=== PATIENT | female | born 1940 | race Caucasian/White ===

== ENCOUNTER 2022-08-07 17:23 | Inpatient (IN) | payer MEDICARE, BC ==
[2022-08-07] MEDS ORDERED: NALOXONE 0.4 MG/ML 1 ML VIAL IV PRN (18:25)
--- NOTE | 2022-08-07 18:34 | ED ---
General Adult HPI - General Chief complaint: Weakness Stated complaint: abn labs Time Seen by Provider: 08/07/22 17:36 Source: patient, family, EMS, RN notes reviewed, old records reviewed Mode of arrival: EMS Limitations: physical limitation - History of Present Illness Initial comments: 81-year-old female presenting for evaluation of weakness. Patient was transferred from outside hospital, found to have an anemia of 7.3 and pneumonia on imaging. She was given 1 unit of packed RBCs and antibiotics. She had initially complained of profound generalized weakness. This been an ongoing issue and was related to anemia approximately one month ago where she received workup at outside hospital. Including EGD and colonoscopy. This was reported as normal. This was done at [facility]. Patient was found to have a white blood cell count of 13.4. Hemoglobin 7.3. Negative troponin. Patient had a mildly elevated creatinine 1.3, BUN of 55. Potassium 3.1 which was replaced. - Related Data Allergies Allergy/AdvReac Type Severity Reaction Status Date / Time mirabegron [From Myrbetriq] Allergy Unknown Verified 08/07/22 17:58 pregabalin [From Lyrica] Allergy Confusion Verified 08/07/22 17:58 promethazine [From Phenergan] Allergy Unknown Verified 08/07/22 17:58 solifenacin [From Vesicare] Allergy Anaphylaxis Verified 08/07/22 17:58 Review of Systems ROS Statement: Those systems with pertinent positive or pertinent negative responses have been documented in the HPI. ROS Other: All systems not noted in ROS Statement are negative. Past Medical History Past Medical History: Atrial Fibrillation, Coronary Artery Disease (CAD), COPD, CVA/TIA, Diabetes Mellitus, Deep Vein Thrombosis (DVT), Hypertension, Osteoarthritis (OA), Pneumonia, Sleep Apnea/CPAP/BIPAP Additional Past Medical History / Comment(s): Anemia, low iron. 3 liters nasal cannula at home. [place]. Past Surgical History: Appendectomy, Cholecystectomy, Heart Catheterization Smoking Status: Former smoker Past Drug Use History: None Reported General Exam Limitations: physical limitation General appearance: alert, in no apparent distress Head exam: Present: atraumatic, normocephalic Eye exam: Present: normal appearance, PERRL ENT exam: Present: normal exam Neck exam: Present: normal inspection. Absent: tenderness, meningismus Respiratory exam: Present: normal lung sounds bilaterally. Absent: respiratory distress Cardiovascular Exam: Present: regular rate, normal rhythm GI/Abdominal exam: Present: soft. Absent: distended, tenderness, guarding Extremities exam: Present: normal inspection, normal capillary refill. Absent: pedal edema Neurological exam: Present: alert, oriented X3, CN II-XII intact. Absent: motor sensory deficit Psychiatric exam: Present: normal affect, normal mood Skin exam: Present: warm, dry, intact, pallor Course Vital Signs 08/07/22 17:35 Temperature 98.4 F Pulse Rate 83 Respiratory 18 Rate Blood Pressure 116/78 O2 Sat by Pulse 98 Oximetry Medical Decision Making - Medical Decision Making Was pt. sent in by a medical professional or institution (, PA, HORSE FARM MANAGER, urgent care, hospital, or [facility]...) When possible be specific @ Sent from [facility] Did you speak to anyone other than the patient for history (EMS, parent, family, police, friend...)? What history was obtained from this source @ -No Did you review nursing and triage notes (agree or disagree)? Why? @ -I reviewed and agree with nursing and triage notes Were old charts reviewed (outside hosp., previous admission, EMS record, old EKG, old radiological studies, urgent care reports/EKG's, [facility] records)? Report findings @ -No old charts were reviewed Differential Diagnosis (chest pain, altered mental status, abdominal pain women, abdominal pain men, vaginal bleeding, weakness, fever, dyspnea, syncope, headache, dizziness, GI bleed, back pain, seizure, CVA, palpatations, mental health, musculoskeletal)? @ Differential Weakness: Hypoglycemia, shock, sepsis, hyponatremia, anemia, infection, MO, ETOH, adverse medicine reaction, overdose, stroke, this is not meant to be an all-inclusive list. EKG interpreted by me (3pts min.). @ -As above X-rays interpreted by me (1pt min.). @ -None done CT interpreted by me (1pt min.). @ -None done U/S interpreted by me (1pt. min.). @ -None done What testing was considered but not performed or refused? (CT, X-rays, U/S, labs)? Why? @ -None What meds were considered but not given or refused? Why? @ -None Did you discuss the management of the patient with other professionals (professionals i.e. , PA, HORSE FARM MANAGER, lab, RT, psych nurse, high school social studies teacher, industrial ecologist, teacher, conservation enforcement officer, nurse outreach case manager)? Give summary @ -EMH Was smoking cessation discussed for >3mins.? @ -No Was critical care preformed (if so, how long)? @ -No Were there social determinants of health that impacted care today? How? (Homelessness, low income, unemployed, alcoholism, drug addiction, transportation, low edu. Level, literacy, decrease access to med. care, fpc, rehab)? @ -No Was there de-escalation of care discussed even if they declined (Discuss DNR or withdrawal of care, Hospice)? DNR status @ -No What co-morbidities impacted this encounter? (DM, HTN, Smoking, COPD, CAD, Cancer, CVA, ARF, Chemo, Hep., AIDS, mental health diagnosis, sleep apnea, morbid obesity)? @ -[Anemia Was patient admitted / discharged? Hospital course, mention meds given and route, prescriptions, significant lab abnormalities, going to OR and other pertinent info. @ -81-year-old female transferred for evaluation of weakness, anemia, and pneumonia. Patient treated with IV antibiotics, Protonix, and 1 unit of packed RBCs. I will repeat laboratory testing in the morning. Patient was sent for evaluation by gastroenterology for this anemia. Gastroenterology has been placed on consult. She will be continued on proton pump inhibitor. Undiagnosed new problem with uncertain prognosis? @ -No Drug Therapy requiring intensive monitoring for toxicity (Heparin, Nitro, Insulin, Cardizem)? @ -No Were any procedures done? @ -No Diagnosis/symptom? @ -[Weakness and anemia, pneumonia Acute, or Chronic, or Acute on Chronic? @ -[Acute Uncomplicated (without systemic symptoms) or Complicated (systemic symptoms)? @ -[Complicated Side effects of treatment? @ -No Exacerbation, Progression, or Severe Exacerbation? @ -No Poses a threat to life or bodily function? How? (Chest pain, USA, MO, pneumonia, PE, COPD, DKA, ARF, appy, cholecystitis, CVA, Diverticulitis, Homicidal, Suicidal, threat to staff... and all critical care pts) @ -[Yes, anemia, hemorrhagic shock, pneumonia, septic shock Disposition Clinical Impression: Anemia, Pneumonia Disposition: ADMITTED IP TO THIS HOSP Condition: Stable Is patient prescribed a controlled substance at d/c from ED?: No Referrals: None,Stated [Primary Care Provider] - 1-2 days Time of Disposition: 18:34
[2022-08-07] MEDS ORDERED: HYDROcodone/APAP 5-325MG 1 EACH TAB PO PRN (21:45)
[2022-08-07] MEDS ORDERED: ALPRAZolam 0.25 MG TAB PO PRN (21:45)
[2022-08-07] MEDS ORDERED: DEXTROSE 50% SYRINGE 50 ML IVP PRN ×2 (21:47)
[2022-08-07] MEDS: FLUoxetine HCL 20 MG CAP PO SCH (22:28)
[2022-08-08 03:18] LABS: Glucose,Whole Blood 274 mg/dL (70-110)
[2022-08-08] MEDS: INSULIN ASPART (NovoLOG) 100 UNIT/ML VIAL SQ SCH ×6 (03:42→20:11)
[2022-08-08 05:37] LABS: Glucose,Whole Blood 252 mg/dL (70-110)
[2022-08-08] MEDS: SYMBICORT 80-4.5 MCG INHALER INHALATION SCH ×2 (06:03→21:16)
[2022-08-08 06:39] LABS: ALT 17 U/L (4-34); AST 28 U/L (14-36); African American GFR (CKD) 49 (>60 ml/min/1.73 sqM); Albumin 3.5 g/dL (3.5-5.0); Alkaline Phosphatase 64 U/L (38-126); Anion Gap 10 mmol/L; Blood Urea Nitrogen 60 mg/dL (7-17); Calcium 10.5 mg/dL (8.4-10.2); Carbon Dioxide 36 mmol/L (22-30); Chloride 87 mmol/L (98-107); Glucose 215 mg/dL (74-99); Magnesium 2.3 mg/dL (1.6-2.3); Non-African American GFR(CKD) 42 (>60 ml/min/1.73 sqM); Potassium 3.6 mmol/L (3.5-5.1); Sodium 133 mmol/L (137-145); Total Bilirubin 0.8 mg/dL (0.2-1.3); Total Protein 5.8 g/dL (6.3-8.2)
[2022-08-08 06:42] LABS: Anisocytosis Moderate; Basophils % (A) 0 %; Eosinophils # (A) 0.1 k/uL (0-0.7); Eosinophils % (A) 1 %; HCT 31.1 % (34.0-46.0); HGB 9.7 gm/dL (11.4-16.0); Hypochromasia Marked; Lymphocytes # (A) 1.1 k/uL (1.0-4.8); Lymphocytes % (A) 9 %; MCH 26.9 pg (25.0-35.0); MCHC 31.1 g/dL (31.0-37.0); MCV 86.3 fL (80.0-100.0); Mean Platelet Volume 8.7; Microcytosis Slight; Monocytes # (A) 0.9 k/uL (0-1.0); Monocytes % (A) 8 %; Neutrophils # (A) 10.2 k/uL (1.3-7.7); Neutrophils % (A) 82 %; Platelet Count 388 k/uL (150-450); Poikilocytosis Moderate; RDW 21.7 % (11.5-15.5); WBC 12.5 k/uL (3.8-10.6)
[2022-08-08] MEDS: PANTOPRAZOLE 40 MG/10 ML VIAL IV SCH (08:56)
[2022-08-08] MEDS: CALCIUM CARB-VIT D 500 MG-5 MCG TAB PO SCH (08:57)
[2022-08-08] MEDS: CHOLECALCIFEROL 25 MCG (1000 IU) TABLET PO SCH (08:57)
[2022-08-08] MEDS: FLUoxetine HCL 20 MG CAP PO SCH ×2 (08:57→19:57)
[2022-08-08] MEDS ORDERED: glipiZIDE 5 MG TAB PO SCH (09:00)
[2022-08-08] MEDS ORDERED: METOPROLOL SUCCINATE (ER) 50 MG TAB.ER.24H PO SCH (09:00)
--- NOTE | 2022-08-08 11:10 | XR ---
EXAMINATION TYPE: XR chest 2V DATE OF EXAM: 08/08/2022 11:01 AM COMPARISON: None TECHNIQUE: XR chest 2V Frontal and lateral views of the chest. CLINICAL INDICATION:Female, 81 years old with history of hypoxia; FINDINGS: Lungs/Pleura: Trace bilateral pleural effusions. No focal consolidation or pneumothorax. Pulmonary vascularity: Pulmonary vascular congestion. Heart/mediastinum: Cardiomediastinal silhouette is enlarged. Atherosclerotic calcifications are seen in the aorta. Postoperative changes of the heart. Musculoskeletal: No acute osseous pathology. Midline sternotomy wires are noted. Other findings: Surgical clips in the left neck. IMPRESSION: Cardiomegaly, pulmonary vascular congestion and trace bilateral pleural effusions. Correlate with BNP for congestive heart failure.
[2022-08-08 11:21] LABS: % Iron Saturation 13.24 (12.00-45.00); Ferritin 48.9 ng/mL (10.0-291.0)
[2022-08-08 12:01] LABS: Glucose,Whole Blood 260 mg/dL (70-110)
[2022-08-08] MEDS ORDERED: QUEtiapine 25 MG TAB PO PRN (12:04)
[2022-08-08] MEDS ORDERED: FUROSEMIDE 10 MG/ML 2 ML VIAL IV SCH (12:15)
--- NOTE | 2022-08-08 12:28 | P.CONS ---
History of Present Illness - Reason for Consult Consult date: 08/08/22 Anemia Requesting physician: Chicho Douglas - Chief Complaint Shortness of breath, weakness and difficulty walking - History of Present Illness This is a pleasant 81-year-old female with a past medical history of atrial fibrillation, iron deficiency anemia, coronary artery disease, COPD, CVA, diabetes mellitus, DVT, hypertension who is on aspirin and Plavix [place] concerns of symptomatic anemia and pneumonia. Apparently on admission to the outside facility she had a hemoglobin of 7.3, was given 1 unit of blood and transferred here for further evaluation. Patient states she believes she had a recent EGD unsure of colonoscopy done at [facility], records not available at this time. She denies any abdominal pain, nausea or vomiting. States she has a history of anemia and takes iron. Patient currently has 4 L of oxygen on per nasal cannula with saturation 90-94%. She's been afebrile. Her daughter is now at the bedside stating the patient has dark stool only from her iron, no tarry stool or blood in her stool. Recently had anemia in April of this year and underwent an EGD which the daughter states was normal. Patient had refused colonoscopy at that time. Admitting labs WBC 12.5 hemoglobin 9.7 hematocrit 31 platelet count 388,000 sodium 133 potassium 3.6 BUN 60 creatinine 1.2 iron 63 TIBC 476 saturation 13 ferritin 48.9 vitamin B12 278 folate greater than 20 Review of Systems REVIEW OF SYSTEMS: CARDIOPULMONARY: No chest pain. Complaints of shortness of breath, dyspnea on exertion. Gastrointestinal: No abdominal pain. No nausea or vomiting. No hematemesis, co ffee-ground emesis. No rectal bleeding, or melena. GENITOURINARY: No dysuria or hematuria. MUSCULOSKELETAL: Reports normal range of motion., Joint pain. SKIN: No rashes. No jaundice. ENDOCRINE: No chills, fevers. No excessive weight gain or loss. No polydipsia or polyuria. PSYCHIATRIC: Unremarkable. NEUROLOGY: No change in mental status. Denies dizziness, headache. ENT: Vision unremarkable. CONSTITUTIONAL: No recent weight loss. No fever, chills, night sweats. Increased weakness. Past Medical History Past Medical History: Atrial Fibrillation, Coronary Artery Disease (CAD), COPD, CVA/TIA, Diabetes Mellitus, Deep Vein Thrombosis (DVT), Hypertension, Osteoarthritis (OA), Pneumonia, Sleep Apnea/CPAP/BIPAP Additional Past Medical History / Comment(s): Anemia, low iron. 3 liters nasal cannula at home. [place]. Past Surgical History: Appendectomy, Cholecystectomy, Heart Catheterization Smoking Status: Former smoker Past Drug Use History: None Reported - Past Family History Father Family Medical History: Hypertension Mother Family Medical History: AFIB, Coronary Artery Disease (CAD), Hypertension Medications and Allergies Home Medications Medication Instructions Recorded Confirmed Type ALPRAZolam [Xanax] 0.25 mg PO TID PRN 08/07/22 08/07/22 History Aspirin EC [Ecotrin Low Dose] 81 mg PO DAILY 08/07/22 08/07/22 History Azelastine HCl [Astelin Nasal 1 spray EA NOSTRIL BID 08/07/22 08/07/22 History Palmer] Calcium Carbonate/Vitamin D3 1 tab PO DAILY 08/07/22 08/07/22 History [Calcium 600 mg-D3 20 mcg (800 unit)] Cholecalciferol [Vitamin D3 (25 50 mcg PO DAILY 08/07/22 08/07/22 History Mcg = 1000 Iu)] Clopidogrel [Plavix] 75 mg PO DAILY 08/07/22 08/07/22 History Collagenase [Santyl Ointment] 1 applic TOPICAL DAILY 08/07/22 08/07/22 History Docusate [Colace] 100 mg PO DAILY 08/07/22 08/07/22 History Empagliflozin [Jardiance] 25 mg PO DAILY 08/07/22 08/07/22 History FLUoxetine HCL [PROzac] 20 mg PO HS 08/07/22 08/07/22 History FLUoxetine HCL [PROzac] 40 mg PO DAILY 08/07/22 08/07/22 History Ferrous Sulfate [Feosol] 325 mg PO DAILY 08/07/22 08/07/22 History Fluticasone Propion/Salmeterol 1 puff INHALATION RT-BID 08/07/22 08/07/22 History [Advair 250-50 Diskus] Furosemide [Lasix] 80 mg PO BID 08/07/22 08/07/22 History HYDROcodone/APAP 5-325MG [Phillips 1 tab PO Q6H PRN 08/07/22 08/07/22 History 5-325] Metoprolol Succinate (ER) [Toprol 50 mg PO DAILY 08/07/22 08/07/22 History Xl] Metoprolol Tartrate [Lopressor] 25 mg PO HS PRN 08/07/22 08/07/22 History Prevagen Supplement 1 tab PO DAILY 08/07/22 08/07/22 History Simvastatin [Zocor] 40 mg PO HS 08/07/22 08/07/22 History glipiZIDE [Glucotrol] 5 mg PO BID 08/07/22 08/07/22 History metFORMIN HCL [Glucophage] 850 mg PO BID 08/07/22 08/07/22 History metOLazone [Zaroxolyn] 2.5 mg PO MO PRN 08/07/22 08/07/22 History Allergies Allergy/AdvReac Type Severity Reaction Status Date / Time mirabegron [From Myrbetriq] Allergy Unknown Verified 08/07/22 18:36 pregabalin [From Lyrica] Allergy Confusion Verified 08/07/22 18:36 promethazine [From Phenergan] Allergy Unknown Verified 08/07/22 18:36 solifenacin [From Vesicare] Allergy Anaphylaxis Verified 08/07/22 18:36 Physical Exam Vitals: Vital Signs Temp Pulse Pulse Resp BP BP Pulse Ox 08/08/22 08:55 97.9 F 85 20 98/63 94 L 08/08/22 06:04 90 L 08/08/22 05:56 86 22 118/72 92 L 08/07/22 22:03 80 18 128/26 100 08/07/22 18:54 75 18 105/78 98 08/07/22 17:35 98.4 F 83 18 116/78 98 Intake and Output 08/07/22 08/08/22 08/08/22 22:59 06:59 14:59 Other: Voiding Method Incontinent Weight 78.925 kg General appearance: The patient is alert, oriented, appears in no acute distress. HET: Head is normocephalic and atraumatic. Conjunctiva pink. Sclera anicteric. Neck: Supple without lymphadenopathy. Trachea midline. Heart: S1 S2. Regular rate and rhythm. Lungs: Clear to auscultation. Abdomen: Soft, nontender, nondistended with bowel sounds. No guarding or rigidity. Skin: No rashes. No jaundice. Extremities: Normal skin color and turgor. No pedal edema. Neurological: No focal deficits. Alert and oriented x3. Results CBC & Chem 7: 08/08/22 05:10 08/08/22 05:10 Labs: Abnormal Lab Results - Last 24 Hours (Table) 08/08/22 08/08/22 08/08/22 Range/Units 03:17 05:10 05:10 WBC 12.5 H (3.8-10.6) k/uL RBC 3.60 L (3.80-5.40) m/uL Hgb 9.7 L (11.4-16.0) gm/dL Hct 31.1 L (34.0-46.0) % RDW 21.7 H (11.5-15.5) % Neutrophils # 10.2 H (1.3-7.7) k/uL Sodium 133 L (137-145) mmol/L Chloride 87 L (98-107) mmol/L Carbon Dioxide 36 H (22-30) mmol/L BUN 60 H (7-17) mg/dL Creatinine 1.20 H (0.52-1.04) mg/dL Glucose 215 H (74-99) mg/dL POC Glucose (mg/dL) 274 H (70-110) mg/dL Calcium 10.5 H (8.4-10.2) mg/dL Total Protein 5.8 L (6.3-8.2) g/dL 08/08/22 Range/Units 05:35 WBC (3.8-10.6) k/uL RBC (3.80-5.40) m/uL Hgb (11.4-16.0) gm/dL Hct (34.0-46.0) % RDW (11.5-15.5) % Neutrophils # (1.3-7.7) k/uL Sodium (137-145) mmol/L Chloride (98-107) mmol/L Carbon Dioxide (22-30) mmol/L BUN (7-17) mg/dL Creatinine (0.52-1.04) mg/dL Glucose (74-99) mg/dL POC Glucose (mg/dL) 252 H (70-110) mg/dL Calcium (8.4-10.2) mg/dL Total Protein (6.3-8.2) g/dL Chest x-ray: report reviewed (Cardiomegaly, pulmonary vascular congestion and trace bilateral pleural effusion. Correlate with BMP for congestive heart failure.) Assessment and Plan (1) Anemia Narrative/Plan: Pleasant 81-year-old female with complaints of shortness of breath weakness had presented to an outside facility with a hemoglobin is 7.3 was transfused 1 unit of blood. She has a history of coronary artery disease on aspirin and Plavix, atrial fibrillation, history of iron deficiency anemia on iron and other multiple comorbidities. She had a chest CT done with concerns for pneumonia at the outside facility. Patient denies any blood in her stool or black stool. Denies any abdominal pain, nausea or vomiting. Believe she had recent endoscopic evaluation at [facility] and [place] records currently unavailable. Labs are consistent with a normochromic normocytic anemia with a stable hemoglobin of 9.7. Need to consider possible anemia of chronic disease versus acute blood loss anemia unclear what her baseline hemoglobin is as this is her first visit. Will await endoscopic records from [facility]. We've recommended and offered colonoscopy during this hospitalization however patient is refusing. Iron studies within normal limits however on the lower end. We will consult hematology for normocytic normochromic anemia. Current Visit: Yes Status: Acute Code(s): D64.9 - ANEMIA, UNSPECIFIED SNOMED Code(s): 391615213 (2) History of atrial fibrillation Current Visit: Yes Status: Acute Code(s): Z86.79 - PERSONAL HISTORY OF OTHER DISEASES OF THE CIRCULATORY SYSTEM SNOMED Code(s): 876739025 (3) Coronary artery disease Current Visit: Yes Status: Acute Code(s): I25.10 - ATHSCL HEART DISEASE OF [place] CORONARY ARTERY W/O ANG PCTRS SNOMED Code(s): 10175767 (4) Diabetes mellitus Current Visit: Yes Status: Acute Code(s): E11.9 - TYPE 2 DIABETES MELLITUS WITHOUT COMPLICATIONS SNOMED Code(s): 21372096 (5) Hypertension Current Visit: Yes Status: Acute Code(s): I10 - ESSENTIAL (PRIMARY) HYPERTENSION SNOMED Code(s): 07774745 (6) Pneumonia Current Visit: Yes Status: Acute Code(s): J18.9 - PNEUMONIA, UNSPECIFIED ORGANISM SNOMED Code(s): 912733401 Plan: 1. Continue symptomatic and supportive care 2. Hold aspirin and Plavix 3. Protonix 40 mg daily 4. Continue oral iron 5. Daily CBC transfuse for hemoglobin less than 7 6. Anemia workup ordered and reviewed 7. Please request endoscopy record for Rupali Huizar 8. Recommend and offered colonoscopy to patient however she is declining at this time 9. Consult to hematology for anemia 10. Defer rest of medical management to primary medical team Thank you for this consultation, we will continue to follow. Dr. Kim Mcmullen I agree with the dictator's note, documented as a scribe by Anita Mukherjee.
[2022-08-08] MEDS: DAPAGLIFLOZIN PROPANEDIOL 10 MG TABLET PO SCH (12:58)
[2022-08-08] MEDS ORDERED: FUROSEMIDE 10 MG/ML 4 ML VIAL IV STA (13:03)
--- NOTE | 2022-08-08 13:27 | P.HPIM ---
History of Present Illness 81-year-old pleasant female was brought in because of generalized weakness. Patient is found to be in congestive heart failure, patient does have some shortness of breath patient uses 3 L of oxygen for COPD, presently on 4 L and patient denied any fever chills patient any cough. Patient denied any orthopnea or paroxysmal nocturnal dyspnea. Patient does have leukocytosis. There was a concern about a GI bleed patient does have problems with daily because of INR supplementation. Patient the family denied any obvious GI bleed clinically although occasionally patient will have blood in the stools secondary to hemorrhoids. Patient hemoglobin is 9.7 patient is a monitor. Obesity transfusion as had hemoglobin at outside hospital was around 7. Patient had adhesions in the past for low hemoglobin. Patient serum iron is 63 and ferritin is 49. Patient does have bilateral pedal edema. Patient does have history of atrial fibrillation for which patient underwent a watchman procedure anticoagulation patient is also on 2 antiplatelet therapy had a cardiac catheterization unsure when her stents were placed. Patient does take 80 mg twice a day of Lasix along with as needed weekly metolazone. REVIEW OF SYSTEMS: The rest of the review of systems is negative except those mentioned above PHYSICAL EXAMINATION: GENERAL: The patient is alert and oriented x3, not in any acute distress. Well developed, well nourished. HEENT: Pupils are round and equally reacting to light. EOMI. No scleral icterus. No conjunctival pallor. Normocephalic, atraumatic. No pharyngeal erythema. No thyromegaly. CARDIOVASCULAR: S1 and S2 present. No murmurs, rubs, or gallops. PULMONARY: Chest is clear to auscultation, no wheezing or crackles. ABDOMEN: Soft, nontender, nondistended, normoactive bowel sounds. No palpable organomegaly. MUSCULOSKELETAL: No joint swelling or deformity. EXTREMITIES: No cyanosis, clubbing, bilateral lower extremity edema 1+ NEUROLOGICAL: Gross neurological examination did not reveal any focal deficits. SKIN: No rashes. Assessment and plan -Generalized weakness probably secondary to congestive heart failure, unknown whether patient has systolic and diastolic dysfunction patient in is in heart f ailure exacerbation patient will be started on IV Lasix 60 twice a day IV blood pressure can tolerate patient blood pressures borderline will obtain echocardiogram will obtain a BNP and cardiology will be consulted -Atrial fibrillation paroxysmal patient has a watchman procedure -Iron deficiency anemia: No evidence of acute GI bleed at this time patient probably can be resumed on aspirin and Plavix patient is on iron supplementation -Hypervolemic hyponatremia secondary to heart failure expected improvement Lasix -Leukocytosis: Reactive without any clear evidence of infection -Type 2 diabetes mellitus: Hold off on metformin, continue rest of her home regimen along with sliding scale insulin -Coronary artery disease -COPD without any acute exacerbation patient has chronic hypercapnic respiratory failure.. -Acute hypoxic respiratory failure CHF exacerbation -History of DVT in the past presently not on any anticoagulation as mentioned above -Sleep apnea DVT prophylaxis: Subcutaneous heparin Past Medical History Past Medical History: Atrial Fibrillation, Coronary Artery Disease (CAD), COPD, CVA/TIA, Diabetes Mellitus, Deep Vein Thrombosis (DVT), Hypertension, Osteoarthritis (OA), Pneumonia, Sleep Apnea/CPAP/BIPAP Additional Past Medical History / Comment(s): Anemia, low iron. 3 liters nasal cannula at home. [place]. History of Any Multi-Drug Resistant Organisms: None Reported Past Surgical History: Appendectomy, Cholecystectomy, Heart Catheterization Additional Past Surgical History / Comment(s): aortic valve replacement, watchman implant, bilat knee replacements, left hip Past Anesthesia/Blood Transfusion Reactions: No Reported Reaction Additional Past Anesthesia/Blood Transfusion Reaction / Comment(s): Pt becomes very confused after anesthesia. Smoking Status: Former smoker Past Drug Use History: None Reported - Past Family History Father Family Medical History: Hypertension Mother Family Medical History: AFIB, Coronary Artery Disease (CAD), Hypertension Medications and Allergies Home Medications Medication Instructions Recorded Confirmed Type ALPRAZolam [Xanax] 0.25 mg PO TID PRN 08/07/22 08/07/22 History Aspirin EC [Ecotrin Low Dose] 81 mg PO DAILY 08/07/22 08/07/22 History Azelastine HCl [Astelin Nasal 1 spray EA NOSTRIL BID 08/07/22 08/07/22 History [place]] Calcium Carbonate/Vitamin D3 1 tab PO DAILY 08/07/22 08/07/22 History [Calcium 600 mg-D3 20 mcg (800 unit)] Cholecalciferol [Vitamin D3 (25 50 mcg PO DAILY 08/07/22 08/07/22 History Mcg = 1000 Iu)] Clopidogrel [Plavix] 75 mg PO DAILY 08/07/22 08/07/22 History Collagenase [Santyl Ointment] 1 applic TOPICAL DAILY 08/07/22 08/07/22 History Docusate [Colace] 100 mg PO DAILY 08/07/22 08/07/22 History Empagliflozin [Jardiance] 25 mg PO DAILY 08/07/22 08/07/22 History FLUoxetine HCL [PROzac] 20 mg PO HS 08/07/22 08/07/22 History FLUoxetine HCL [PROzac] 40 mg PO DAILY 08/07/22 08/07/22 History Ferrous Sulfate [Feosol] 325 mg PO DAILY 08/07/22 08/07/22 History Fluticasone Propion/Salmeterol 1 puff INHALATION RT-BID 08/07/22 08/07/22 History [Advair 250-50 Diskus] Furosemide [Lasix] 80 mg PO BID 08/07/22 08/07/22 History HYDROcodone/APAP 5-325MG [[place] 1 tab PO Q6H PRN 08/07/22 08/07/22 History 5-325] Metoprolol Succinate (ER) [Toprol 50 mg PO DAILY 08/07/22 08/07/22 History Xl] Metoprolol Tartrate [Lopressor] 25 mg PO HS PRN 08/07/22 08/07/22 History Prevagen Supplement 1 tab PO DAILY 08/07/22 08/07/22 History Simvastatin [Zocor] 40 mg PO HS 08/07/22 08/07/22 History glipiZIDE [Glucotrol] 5 mg PO BID 08/07/22 08/07/22 History metFORMIN HCL [Glucophage] 850 mg PO BID 08/07/22 08/07/22 History metOLazone [Zaroxolyn] 2.5 mg PO MO PRN 08/07/22 08/07/22 History Allergies Allergy/AdvReac Type Severity Reaction Status Date / Time mirabegron [From Myrbetriq] Allergy Unknown Verified 08/07/22 18:36 pregabalin [From Lyrica] Allergy Confusion Verified 08/07/22 18:36 promethazine [From Phenergan] Allergy Unknown Verified 08/07/22 18:36 solifenacin [From Vesicare] Allergy Anaphylaxis Verified 08/07/22 18:36 Physical Exam Vitals: Vital Signs Temp Pulse Pulse Resp BP BP Pulse Ox 08/08/22 08:55 97.9 F 85 20 98/63 94 L 08/08/22 06:04 90 L 08/08/22 05:56 86 22 118/72 92 L 08/07/22 22:03 80 18 128/26 100 08/07/22 18:54 75 18 105/78 98 08/07/22 17:35 98.4 F 83 18 116/78 98 Intake and Output 08/07/22 08/08/22 08/08/22 22:59 06:59 14:59 Other: Voiding Method Incontinent Weight 78.925 kg 78.925 kg Results CBC & Chem 7: 08/08/22 05:10 08/08/22 05:10 Labs: Abnormal Lab Results - Last 24 Hours (Table) 08/08/22 08/08/22 08/08/22 Range/Units 03:17 05:10 05:10 WBC 12.5 H (3.8-10.6) k/uL RBC 3.60 L (3.80-5.40) m/uL Hgb 9.7 L (11.4-16.0) gm/dL Hct 31.1 L (34.0-46.0) % RDW 21.7 H (11.5-15.5) % Neutrophils # 10.2 H (1.3-7.7) k/uL Sodium 133 L (137-145) mmol/L Chloride 87 L (98-107) mmol/L Carbon Dioxide 36 H (22-30) mmol/L BUN 60 H (7-17) mg/dL Creatinine 1.20 H (0.52-1.04) mg/dL Glucose 215 H (74-99) mg/dL POC Glucose (mg/dL) 274 H (70-110) mg/dL Hemoglobin A1c (<=6.0) % Calcium 10.5 H (8.4-10.2) mg/dL TIBC (228-460) UG/DL Total Protein 5.8 L (6.3-8.2) g/dL 08/08/22 08/08/22 08/08/22 Range/Units 05:10 05:10 05:35 WBC (3.8-10.6) k/uL RBC (3.80-5.40) m/uL Hgb (11.4-16.0) gm/dL Hct (34.0-46.0) % RDW (11.5-15.5) % Neutrophils # (1.3-7.7) k/uL Sodium (137-145) mmol/L Chloride (98-107) mmol/L Carbon Dioxide (22-30) mmol/L BUN (7-17) mg/dL Creatinine (0.52-1.04) mg/dL Glucose (74-99) mg/dL POC Glucose (mg/dL) 252 H (70-110) mg/dL Hemoglobin A1c 6.9 H (<=6.0) % Calcium (8.4-10.2) mg/dL TIBC 476 H (228-460) UG/DL Total Protein (6.3-8.2) g/dL 08/08/22 Range/Units 11:57 WBC (3.8-10.6) k/uL RBC (3.80-5.40) m/uL Hgb (11.4-16.0) gm/dL Hct (34.0-46.0) % RDW (11.5-15.5) % Neutrophils # (1.3-7.7) k/uL Sodium (137-145) mmol/L Chloride (98-107) mmol/L Carbon Dioxide (22-30) mmol/L BUN (7-17) mg/dL Creatinine (0.52-1.04) mg/dL Glucose (74-99) mg/dL POC Glucose (mg/dL) 260 H (70-110) mg/dL Hemoglobin A1c (<=6.0) % Calcium (8.4-10.2) mg/dL TIBC (228-460) UG/DL Total Protein (6.3-8.2) g/dL Thrombosis Risk Factor Assmnt - Choose All That Apply Each Factor Represents 1 point: Abnormal pulmonary function (COPD), Obesity (BMI >25) Each Risk Factor Represents 3 Points: Age 75 years or older, History of DVT/PE Thrombosis Risk Factor Assessment Total Risk Factor Score: 8 Thrombosis Risk Factor Assessment Level: High Risk
[2022-08-08] MEDS: HALOPERIDOL LACTATE 5 MG/ML 1 ML VIAL IVP PRN ×2 (16:02→23:58)
[2022-08-08 16:50] LABS: Glucose,Whole Blood 150 mg/dL (70-110)
[2022-08-08 18:07] LABS: Glucose,Whole Blood 264 mg/dL (70-110)
[2022-08-08] MEDS: ATORVASTATIN 20 MG TAB PO SCH (19:57)
[2022-08-08] MEDS: FUROSEMIDE 10 MG/ML 10 ML VIAL IV SCH (20:07)
[2022-08-08] MEDS: AZELASTINE 137MCG/SPRAY EA NOSTRIL SCH (20:07)
[2022-08-08] MEDS: INSULIN DETEMIR (LEVEMIR) 100 UNIT/ML SYR SQ SCH (20:12)
--- NOTE | 2022-08-08 20:59 | CONS ---
CONSULTATION CHIEF COMPLAINT: Shortness of breath. HISTORY OF PRESENT ILLNESS: Rebecca is an 81-year-old lady who appears somewhat confused, has history of hypertension, diabetes, dyslipidemia, who is admitted to hospital with shortness of breath. She also has generalized weakness, was found to be in congestive heart failure, received Lasix with some improvement in symptoms. She is anemic and apparently had been transfused at an outside facility because of anemia. PAST MEDICAL HISTORY: Significant for atrial fibrillation, coronary artery disease, CVA, COPD, diabetes, DVT, hypertension, osteoarthritis, pneumonia, sleep apnea. PAST SURGICAL HISTORY: Significant for appendectomy, cholecystectomy, heart catheterization, aortic valve replacement and Watchman device placement along with left hip replacement and knee replacement. REVIEW OF SYSTEMS: I am unable to obtain from the patient, who is confused. PHYSICAL EXAMINATION: VITAL SIGNS: On exam, heart rate is 80 beats per minute, blood pressure is 88/50, respiratory rate is 18. CHEST: Reveals diminished air entry at the bases. HEART: Reveals first and second heart sounds. Ejection systolic murmur in the aortic area. ABDOMEN: Soft. EXTREMITIES: Exam of extremities did not reveal any edema. Peripheral pulses are felt. LABORATORY DATA: labs showed a hemoglobin of 9.7. Potassium is 3.6, BUN is 60, creatinine is 1.2. BNP is elevated at 7370. ASSESSMENT: 1. Acute exacerbation of chronic congestive heart failure, probably diastolic. 2. Paroxysmal atrial fibrillation. 3. History of aortic valve replacement. PLAN: I will treat the patient with IV Lasix. Obtain a 2D echo. MMODL / IJN: [id number] /
[2022-08-09 04:57] LABS: African American GFR (CKD) 42 (>60 ml/min/1.73 sqM); Anion Gap 10 mmol/L; Blood Urea Nitrogen 62 mg/dL (7-17); Calcium 10.1 mg/dL (8.4-10.2); Carbon Dioxide 34 mmol/L (22-30); Chloride 89 mmol/L (98-107); Glucose 221 mg/dL (74-99); Magnesium 2.6 mg/dL (1.6-2.3); Non-African American GFR(CKD) 37 (>60 ml/min/1.73 sqM); Potassium 3.8 mmol/L (3.5-5.1); Sodium 133 mmol/L (137-145)
[2022-08-09 05:01] LABS: Anisocytosis Moderate; HCT 27.1 % (34.0-46.0); Hypochromasia Marked; MCH 26.6 pg (25.0-35.0); MCHC 30.4 g/dL (31.0-37.0); MCV 87.8 fL (80.0-100.0); Mean Platelet Volume 8.4; Microcytosis Slight; Platelet Count 332 k/uL (150-450); Poikilocytosis Moderate; RBC 3.09 m/uL (3.80-5.40); WBC 12.2 k/uL (3.8-10.6)
[2022-08-09 05:13] LABS: HGB 8.2 gm/dL (11.4-16.0)
[2022-08-09 06:08] LABS: Glucose,Whole Blood 282 mg/dL (70-110)
[2022-08-09 07:32] LABS: Glucose,Whole Blood 262 mg/dL (70-110)
[2022-08-09] MEDS: SYMBICORT 80-4.5 MCG INHALER INHALATION SCH ×2 (08:01→20:57)
[2022-08-09] MEDS: INSULIN ASPART (NovoLOG) 100 UNIT/ML VIAL SQ SCH ×7 (08:10→20:52)
[2022-08-09] MEDS: FUROSEMIDE 10 MG/ML 10 ML VIAL IV SCH ×2 (08:10→20:49)
[2022-08-09] MEDS: HALOPERIDOL LACTATE 5 MG/ML 1 ML VIAL IVP PRN ×2 (08:11→17:22)
[2022-08-09] MEDS: DAPAGLIFLOZIN PROPANEDIOL 10 MG TABLET PO SCH ×2 (08:11→08:12)
[2022-08-09] MEDS: FLUoxetine HCL 20 MG CAP PO SCH ×2 (08:12→20:48)
[2022-08-09] MEDS: CLOPIDOGREL 75 MG TAB PO SCH (08:12)
[2022-08-09] MEDS: CALCIUM CARB-VIT D 500 MG-5 MCG TAB PO SCH (08:12)
[2022-08-09] MEDS: AZELASTINE 137MCG/SPRAY EA NOSTRIL SCH ×2 (08:13→20:49)
[2022-08-09] MEDS: CHOLECALCIFEROL 25 MCG (1000 IU) TABLET PO SCH (08:13)
[2022-08-09] MEDS: ASPIRIN 81 MG PO SCH (08:13)
[2022-08-09] MEDS: PANTOPRAZOLE 40 MG/10 ML VIAL IV SCH (08:13)
[2022-08-09] MEDS: METOPROLOL SUCCINATE (ER) 25 MG TAB.ER.24H PO SCH (08:19)
[2022-08-09 08:58] LABS: Total Iron Binding Capacity 445 UG/DL (228-460)
[2022-08-09 09:08] LABS: Iron 29 UG/DL (50-170)
[2022-08-09 10:25] LABS: % Iron Saturation 6.52 (12.00-45.00)
[2022-08-09] MEDS ORDERED: HALOPERIDOL LACTATE 5 MG/ML 1 ML VIAL IM PRN (10:49)
--- NOTE | 2022-08-09 11:11 | P.PN ---
Subjective HISTORY OF PRESENT ILLNESS: This is an 81-year-old female who presented to the hospital chief complaint of shortness of breath. Patient was found to be in acute congestive heart failure and was started on IV Lasix. Patient is also being evaluated for her anemia. Patient examined this morning at the bedside. Patient remains confused this morning. She denies chest pain or pressure. She denies shortness of breath. Telemetry reveals atrial fibrillation with controlled ventricular rate. Vital signs are stable. Blood pressure has improved from yesterday. PHYSICAL EXAM: VITAL SIGNS: Reviewed. GENERAL: Well-developed in no acute distress. NECK: Supple. No JVD or thyromegaly LUNGS: Respirations even and unlabored. Lungs diminished to auscultation bilaterally. HEART: Irregular rate and rhythm. S1 and S2 heard. Systolic murmur noted EXTREMITIES: Normal range of motion. No clubbing or cyanosis. Peripheral pulses intact. No lower extremity edema ASSESSMENT: Shortness of breath Acute exacerbation of congestive heart failure, type unknown, echo pending Paroxysmal atrial fibrillation History of aortic valve replacement History of Watchman device Hypertension History of COPD History of CVA Diabetes PLAN: 2D echo ordered. Await results. Continue IV lasix Daily weights, accurate I&O, and monitoring of kidney function Continue additional cardiac medications Further recommendations pending patient course Nurse practitioner note has been reviewed by physician. Signing provider agrees with the documented findings, assessment, and plan of care. Objective - Vital Signs Vital signs: Vital Signs Temp 98.2 F 08/09/22 08:10 Pulse 84 08/09/22 08:10 Resp 20 08/09/22 08:10 BP 117/57 08/09/22 08:10 Pulse Ox 90 L 08/09/22 08:10 FiO2 Intake & Output 08/08/22 08/09/22 08/09/22 18:59 06:59 18:59 Intake Total 0 Balance 0 Weight 78.925 kg 74.5 kg Intake: Oral 0 Other: Voiding Method Incontinent Incontinent # Voids 1 1 # Bowel Movements 1 - Labs CBC & Chem 7: 08/09/22 04:33 08/09/22 04:33 Labs: Abnormal Lab Results - Last 24 Hours (Table) 08/08/22 08/08/22 08/08/22 Range/Units 05:10 05:10 05:10 WBC (3.8-10.6) k/uL RBC (3.80-5.40) m/uL Hgb (11.4-16.0) gm/dL Hct (34.0-46.0) % MCHC (31.0-37.0) g/dL RDW (11.5-15.5) % Retic Count (0.5-2.0) % Sodium (137-145) mmol/L Chloride (98-107) mmol/L Carbon Dioxide (22-30) mmol/L BUN (7-17) mg/dL Creatinine (0.52-1.04) mg/dL Glucose (74-99) mg/dL POC Glucose (mg/dL) (70-110) mg/dL Hemoglobin A1c 6.9 H (<=6.0) % Magnesium (1.6-2.3) mg/dL Iron (50-170) UG/DL TIBC 476 H (228-460) UG/DL % Saturation (12.00-45.00) Procalcitonin 0.28 H (0.02-0.09) ng/mL 08/08/22 08/08/22 08/08/22 Range/Units 11:57 16:48 18:05 WBC (3.8-10.6) k/uL RBC (3.80-5.40) m/uL Hgb (11.4-16.0) gm/dL Hct (34.0-46.0) % MCHC (31.0-37.0) g/dL RDW (11.5-15.5) % Retic Count (0.5-2.0) % Sodium (137-145) mmol/L Chloride (98-107) mmol/L Carbon Dioxide (22-30) mmol/L BUN (7-17) mg/dL Creatinine (0.52-1.04) mg/dL Glucose (74-99) mg/dL POC Glucose (mg/dL) 260 H 150 H 264 H (70-110) mg/dL Hemoglobin A1c (<=6.0) % Magnesium (1.6-2.3) mg/dL Iron (50-170) UG/DL TIBC (228-460) UG/DL % Saturation (12.00-45.00) Procalcitonin (0.02-0.09) ng/mL 08/09/22 08/09/22 08/09/22 Range/Units 04:33 04:33 06:06 WBC 12.2 H (3.8-10.6) k/uL RBC 3.09 L (3.80-5.40) m/uL Hgb 8.2 L D (11.4-16.0) gm/dL Hct 27.1 L (34.0-46.0) % MCHC 30.4 L (31.0-37.0) g/dL RDW 22.0 H (11.5-15.5) % Retic Count (0.5-2.0) % Sodium 133 L (137-145) mmol/L Chloride 89 L (98-107) mmol/L Carbon Dioxide 34 H (22-30) mmol/L BUN 62 H (7-17) mg/dL Creatinine 1.35 H (0.52-1.04) mg/dL Glucose 221 H (74-99) mg/dL POC Glucose (mg/dL) 282 H (70-110) mg/dL Hemoglobin A1c (<=6.0) % Magnesium 2.6 H (1.6-2.3) mg/dL Iron 29 L (50-170) UG/DL TIBC (228-460) UG/DL % Saturation 6.52 L (12.00-45.00) Procalcitonin (0.02-0.09) ng/mL 08/09/22 08/09/22 Range/Units 07:30 09:31 WBC (3.8-10.6) k/uL RBC (3.80-5.40) m/uL Hgb (11.4-16.0) gm/dL Hct (34.0-46.0) % MCHC (31.0-37.0) g/dL RDW (11.5-15.5) % Retic Count 9.0 H (0.5-2.0) % Sodium (137-145) mmol/L Chloride (98-107) mmol/L Carbon Dioxide (22-30) mmol/L BUN (7-17) mg/dL Creatinine (0.52-1.04) mg/dL Glucose (74-99) mg/dL POC Glucose (mg/dL) 262 H (70-110) mg/dL Hemoglobin A1c (<=6.0) % Magnesium (1.6-2.3) mg/dL Iron (50-170) UG/DL TIBC (228-460) UG/DL % Saturation (12.00-45.00) Procalcitonin (0.02-0.09) ng/mL
[2022-08-09 11:29] LABS: Glucose,Whole Blood 194 mg/dL (70-110)
--- NOTE | 2022-08-09 11:40 | P.GSCN ---
History of Present Illness Consult date: 08/09/22 Reason for Consult: Urinary retention History of present illness: This is an 81 yo female admitted to the hospital with weakness. Urology is c ounsulted for urinary retention. Patient was confused and agitated last night, she was unable to void and PVR was elevated at 500 mL. Attempt murray placement by nurses was unsuccessful She is incontinent of urine at baseline, he urinary incontinence is been managed by pure wick . This morning she has been able to void and PVR was 200 mL. Patient is poor historian, but no previous known hx of urinrary retention. Denies any gross hematuria or dysuria Review of Systems ROS unobtainable: due to mental status Past Medical History Past Medical History: Atrial Fibrillation, Coronary Artery Disease (CAD), COPD, CVA/TIA, Diabetes Mellitus, Deep Vein Thrombosis (DVT), Hypertension, Osteoarthritis (OA), Pneumonia, Sleep Apnea/CPAP/BIPAP Additional Past Medical History / Comment(s): Anemia, low iron. 3 liters nasal cannula at home. [place]. History of Any Multi-Drug Resistant Organisms: None Reported Past Surgical History: Appendectomy, Cholecystectomy, Heart Catheterization Additional Past Surgical History / Comment(s): aortic valve replacement, watchman implant, bilat knee replacements, left hip Past Anesthesia/Blood Transfusion Reactions: No Reported Reaction Additional Past Anesthesia/Blood Transfusion Reaction / Comm: Pt becomes very confused after anesthesia. Smoking Status: Former smoker Past Drug Use History: None Reported - Past Family History Father Family Medical History: Hypertension Mother Family Medical History: AFIB, Coronary Artery Disease (CAD), Hypertension Medications and Allergies Home Medications Medication Instructions Recorded Confirmed Type ALPRAZolam [Xanax] 0.25 mg PO TID PRN 08/07/22 08/07/22 History Aspirin EC [Ecotrin Low Dose] 81 mg PO DAILY 08/07/22 08/07/22 History Azelastine HCl [Astelin Nasal 1 spray EA NOSTRIL BID 08/07/22 08/07/22 History [place]] Calcium Carbonate/Vitamin D3 1 tab PO DAILY 08/07/22 08/07/22 History [Calcium 600 mg-D3 20 mcg (800 unit)] Cholecalciferol [Vitamin D3 (25 50 mcg PO DAILY 08/07/22 08/07/22 History Mcg = 1000 Iu)] Clopidogrel [Plavix] 75 mg PO DAILY 08/07/22 08/07/22 History Collagenase [Santyl Ointment] 1 applic TOPICAL DAILY 08/07/22 08/07/22 History Docusate [Colace] 100 mg PO DAILY 08/07/22 08/07/22 History Empagliflozin [Jardiance] 25 mg PO DAILY 08/07/22 08/07/22 History FLUoxetine HCL [PROzac] 20 mg PO HS 08/07/22 08/07/22 History FLUoxetine HCL [PROzac] 40 mg PO DAILY 08/07/22 08/07/22 History Ferrous Sulfate [Feosol] 325 mg PO DAILY 08/07/22 08/07/22 History Fluticasone Propion/Salmeterol 1 puff INHALATION RT-BID 08/07/22 08/07/22 Histor y [Advair 250-50 Diskus] Furosemide [Lasix] 80 mg PO BID 08/07/22 08/07/22 History HYDROcodone/APAP 5-325MG [[place] 1 tab PO Q6H PRN 08/07/22 08/07/22 History 5-325] Metoprolol Succinate (ER) [Toprol 50 mg PO DAILY 08/07/22 08/07/22 History Xl] Metoprolol Tartrate [Lopressor] 25 mg PO HS PRN 08/07/22 08/07/22 History Prevagen Supplement 1 tab PO DAILY 08/07/22 08/07/22 History Simvastatin [Zocor] 40 mg PO HS 08/07/22 08/07/22 History glipiZIDE [Glucotrol] 5 mg PO BID 08/07/22 08/07/22 History metFORMIN HCL [Glucophage] 850 mg PO BID 08/07/22 08/07/22 History metOLazone [Zaroxolyn] 2.5 mg PO MO PRN 08/07/22 08/07/22 History Allergies Allergy/AdvReac Type Severity Reaction Status Date / Time mirabegron [From Myrbetriq] Allergy Unknown Verified 08/07/22 18:36 pregabalin [From Lyrica] Allergy Confusion Verified 08/07/22 18:36 promethazine [From Phenergan] Allergy Unknown Verified 08/07/22 18:36 solifenacin [From Vesicare] Allergy Anaphylaxis Verified 08/07/22 18:36 Surgical - Exam Vital Signs Temp Pulse Resp BP Pulse Ox 98.4 F 83 18 116/78 98 08/07/22 17:35 08/07/22 17:35 08/07/22 17:35 08/07/22 17:35 08/07/22 17:35 - General no distress, no pain - Eyes normal ocular movement, no pale - ENT normal nares, normal mucosa - Respiratory normal expansion, normal respiratory effort - Abdomen Abdomen: soft, non tender Results - Labs 08/09/22 04:33 08/09/22 04:33 Abnormal Lab Results - Last 24 Hours (Table) 08/08/22 08/08/22 08/08/22 Range/Units 05:10 05:10 05:10 WBC (3.8-10.6) k/uL RBC (3.80-5.40) m/uL Hgb (11.4-16.0) gm/dL Hct (34.0-46.0) % MCHC (31.0-37.0) g/dL RDW (11.5-15.5) % Retic Count (0.5-2.0) % Sodium (137-145) mmol/L Chloride (98-107) mmol/L Carbon Dioxide (22-30) mmol/L BUN (7-17) mg/dL Creatinine (0.52-1.04) mg/dL Glucose (74-99) mg/dL POC Glucose (mg/dL) (70-110) mg/dL Hemoglobin A1c 6.9 H (<=6.0) % Magnesium (1.6-2.3) mg/dL Iron (50-170) UG/DL TIBC 476 H (228-460) UG/DL % Saturation (12.00-45.00) Procalcitonin 0.28 H (0.02-0.09) ng/mL 08/08/22 08/08/22 08/08/22 Range/Units 11:57 16:48 18:05 WBC (3.8-10.6) k/uL RBC (3.80-5.40) m/uL Hgb (11.4-16.0) gm/dL Hct (34.0-46.0) % MCHC (31.0-37.0) g/dL RDW (11.5-15.5) % Retic Count (0.5-2.0) % Sodium (137-145) mmol/L Chloride (98-107) mmol/L Carbon Dioxide (22-30) mmol/L BUN (7-17) mg/dL Creatinine (0.52-1.04) mg/dL Glucose (74-99) mg/dL POC Glucose (mg/dL) 260 H 150 H 264 H (70-110) mg/dL Hemoglobin A1c (<=6.0) % Magnesium (1.6-2.3) mg/dL Iron (50-170) UG/DL TIBC (228-460) UG/DL % Saturation (12.00-45.00) Procalcitonin (0.02-0.09) ng/mL 08/09/22 08/09/22 08/09/22 Range/Units 04:33 04:33 06:06 WBC 12.2 H (3.8-10.6) k/uL RBC 3.09 L (3.80-5.40) m/uL Hgb 8.2 L D (11.4-16.0) gm/dL Hct 27.1 L (34.0-46.0) % MCHC 30.4 L (31.0-37.0) g/dL RDW 22.0 H (11.5-15.5) % Retic Count (0.5-2.0) % Sodium 133 L (137-145) mmol/L Chloride 89 L (98-107) mmol/L Carbon Dioxide 34 H (22-30) mmol/L BUN 62 H (7-17) mg/dL Creatinine 1.35 H (0.52-1.04) mg/dL Glucose 221 H (74-99) mg/dL POC Glucose (mg/dL) 282 H (70-110) mg/dL Hemoglobin A1c (<=6.0) % Magnesium 2.6 H (1.6-2.3) mg/dL Iron 29 L (50-170) UG/DL TIBC (228-460) UG/DL % Saturation 6.52 L (12.00-45.00) Procalcitonin (0.02-0.09) ng/mL 08/09/22 08/09/22 Range/Units 07:30 09:31 WBC (3.8-10.6) k/uL RBC (3.80-5.40) m/uL Hgb (11.4-16.0) gm/dL Hct (34.0-46.0) % MCHC (31.0-37.0) g/dL RDW (11.5-15.5) % Retic Count 9.0 H (0.5-2.0) % Sodium (137-145) mmol/L Chloride (98-107) mmol/L Carbon Dioxide (22-30) mmol/L BUN (7-17) mg/dL Creatinine (0.52-1.04) mg/dL Glucose (74-99) mg/dL POC Glucose (mg/dL) 262 H (70-110) mg/dL Hemoglobin A1c (<=6.0) % Magnesium (1.6-2.3) mg/dL Iron (50-170) UG/DL TIBC (228-460) UG/DL % Saturation (12.00-45.00) Procalcitonin (0.02-0.09) ng/mL Diabetes panel 08/08/22 08/09/22 Range/Units 05:10 04:33 Sodium 133 L (137-145) mmol/L Potassium 3.8 (3.5-5.1) mmol/L Chloride 89 L (98-107) mmol/L Carbon Dioxide 34 H (22-30) mmol/L BUN 62 H (7-17) mg/dL Creatinine 1.35 H (0.52-1.04) mg/dL Glucose 221 H (74-99) mg/dL Hemoglobin A1c 6.9 H (<=6.0) % Calcium 10.1 (8.4-10.2) mg/dL Calcium panel 08/09/22 Range/Units 04:33 Calcium 10.1 (8.4-10.2) mg/dL Pituitary panel 08/09/22 Range/Units 04:33 Sodium 133 L (137-145) mmol/L Potassium 3.8 (3.5-5.1) mmol/L Chloride 89 L (98-107) mmol/L Carbon Dioxide 34 H (22-30) mmol/L BUN 62 H (7-17) mg/dL Creatinine 1.35 H (0.52-1.04) mg/dL Glucose 221 H (74-99) mg/dL Calcium 10.1 (8.4-10.2) mg/dL Adrenal panel 08/09/22 Range/Units 04:33 Sodium 133 L (137-145) mmol/L Potassium 3.8 (3.5-5.1) mmol/L Chloride 89 L (98-107) mmol/L Carbon Dioxide 34 H (22-30) mmol/L BUN 62 H (7-17) mg/dL Creatinine 1.35 H (0.52-1.04) mg/dL Glucose 221 H (74-99) mg/dL Calcium 10.1 (8.4-10.2) mg/dL Assessment and Plan Assessment: 81 yo female with urinary incontinent, developed retention last night, but has been able to void this am with PVR in 200ml. given patient able to void and her PVR is acceptable to her age, will avoid a murray catheter for her at this time. Her urine incontinence can be managed with purewick
--- NOTE | 2022-08-09 13:06 | CA ---
Transthoracic Echo Report Name: Rebecca Collado Age: 81 Gender: F : 1940 Exam Date: 08/08/2022 14:09 Exam Location: [place] [facility] Ht (in): 62 Wt (lb): 174 Ordering Physician: Leo Douglass MD Attending/Referring Phys: Pediatric Dentist Imani Elena [facility] Procedure CPT: Indications: chf Cardiac Hx: Technical Quality: Technically difficult study Contrast 1: Total Dose (mL): Contrast 2: Total Dose (mL): MEASUREMENTS (Male / Female) Normal Values 2D ECHO LV Diastolic Diameter PLAX 3.8 cm 4.2 - 5.9 / 3.9 - 5.3 cm LV Systolic Diameter PLAX 2.5 cm IVS Diastolic Thickness 1.1 cm 0.6 - 1.0 / 0.6 - 0.9 cm LVPW Diastolic Thickness 1.1 cm 0.6 - 1.0 / 0.6 - 0.9 cm LV Relative Wall Thickness 0.6 LVOT Diameter 2.0 cm Ascending Aorta Diameter 3.3 cm DOPPLER AV Peak Velocity 361.7 cm/s AV Peak Gradient 52.3 mmHg AV Mean Velocity 279.3 cm/s AV Mean Gradient 33.5 mmHg AV Velocity Time Integral 88.8 cm LVOT Peak Velocity 127.7 cm/s LVOT Peak Gradient 6.5 mmHg LVOT Velocity Time Integral 27.6 cm LVOT Stroke Volume 82.6 cm??? LVOT Stroke Volume Index 45.8 ml/m??? LVOT Cardiac Index 3540.5 cm???/min???m??? AV Area Cont Eq vti 0.9 cm??? AV Area Cont Eq pk 1.1 cm??? Mitral E Point Velocity 125.2 cm/s Mitral A Point Velocity 46.9 cm/s Mitral E to A Ratio 2.7 MV Deceleration Time 228.0 ms LV E' Lateral Velocity 8.9 cm/s Mitral E to LV E' Lateral Ratio 14.0 LV E' Septal Velocity 6.7 cm/s Mitral E to LV E' Septal Ratio 18.6 TR Peak Velocity 307.1 cm/s TR Peak Gradient 37.7 mmHg Right Atrial Pressure 8.0 mmHg Pulmonary Artery Systolic Pressu 45.7 mmHg Right Ventricular Systolic Press 45.7 mmHg FINDINGS Left Ventricle Mildly increased left ventricular wall thickness. Normal left ventricular size. No obvious regional wall motion abnormalities. Left ventricular ejection fraction is estimated at 50-55%. Right Ventricle Severe right ventricular dilatation. Mildly reduced right ventricular global systolic function. Right Atrium Severe right atrial dilatation. Left Atrium Severe left atrial dilatation. Mitral Valve Mitral valve thickened. Mild mitral annular calcification. [id number]-syolbjjz mitral regurgitation. Aortic Valve Aortic valve not well visualized. Bioprosthetic aortic valve. Increased pressure gradient noted through the valve. Peak gradient of 52 mmHg and a mean gradient of 33 mmHg. Trace prosthetic aortic valve regurgitation. Tricuspid Valve Tricuspid valve not well visualized. Moderate tricuspid regurgitation. Pulmonic Valve Structurally normal pulmonic valve. Mild pulmonic regurgitation. Pericardium No pericardial effusion. Aorta Normal size aortic root and proximal ascending aorta. CONCLUSIONS Technically difficult study Grossly LV systolic function is fairly well- preserved is moderate concentric LVH. Aortic valve is poorly visualized apparently there is a bioprosthetic valve but the gradient is significant mean gradient is about 30 mmHg. Moderate pulmonary hypertension no pericardial effusion Previewed by: Dr. Missy Johnston MD (Electronically Signed) Final Date: 09 August 2022 13:05
--- NOTE | 2022-08-09 13:36 | P.PN ---
Subjective Progress Note Date: 08/09/22 Principal diagnosis: Anemia This is a pleasant 81-year-old female with a past medical history of atrial fibrillation, iron deficiency anemia, coronary artery disease, COPD, CVA, d iabetes mellitus, DVT, hypertension who is on aspirin and Plavix was transferred from a hospital in [place] for concerns of symptomatic anemia and pneumonia. Apparently on admission to the outside facility she had a hemoglobin of 7.3, was given 1 unit of blood and transferred here for further evaluation. Patient states she believes she had a recent EGD unsure of colonoscopy done at [facility], records not available at this time. She denies any abdominal pain, nausea or vomiting. States she has a history of anemia and takes iron. Patient currently has 4 L of oxygen on per nasal cannula with saturation 90-94%. She's been afebrile. Her daughter is now at the bedside stating the patient has dark stool only from her iron, no tarry stool or blood in her stool. Recently had anemia in April of this year and underwent an EGD which the daughter states was normal. Patient had refused colonoscopy at that time. Admitting labs WBC 12.5 hemoglobin 9.7 hematocrit 31 platelet count 388,000 sodium 133 potassium 3.6 BUN 60 creatinine 1.2 iron 63 TIBC 476 saturation 13 ferritin 48.9 vitamin B12 278 folate greater than 20 08/09/2022 The patient is seen and examined this morning. She has a sitter at the bedside. She is very confused. No reported bloody bowel movements. She denies any abdominal pain, nausea or vomiting. WBC 12.2 hemoglobin 8.2 platelet count 332, Objective - Vital Signs Vital signs: Vital Signs Temp 97.6 F 08/09/22 03:31 Pulse 84 08/09/22 03:31 Resp 18 08/09/22 03:31 BP 84/45 08/09/22 03:31 Pulse Ox 93 L 08/09/22 03:31 FiO2 Intake & Output 08/08/22 08/09/22 08/09/22 18:59 06:59 18:59 Intake Total 0 Balance 0 Weight 78.925 kg 74.5 kg Intake: Oral 0 Other: Voiding Method Incontinent Incontinent # Voids 1 1 # Bowel Movements 1 - Exam General appearance: The patient is confused, appears in no acute distress. HET: Head is normocephalic and atraumatic. Conjunctiva pink. Sclera anicteric. Neck: Supple without lymphadenopathy. Abdomen: Soft, mild tenderness in the upper abdomen, nondistended with bowel sounds. No guarding or rigidity. Extremities: Normal skin color and turgor. No pedal edema Skin: No rashes, no jaundice Neurological: Confused. - Labs CBC & Chem 7: 08/09/22 04:33 08/09/22 04:33 Labs: Abnormal Lab Results - Last 24 Hours (Table) 08/08/22 08/08/22 08/08/22 Range/Units 05:10 05:10 05:10 WBC (3.8-10.6) k/uL RBC (3.80-5.40) m/uL Hgb (11.4-16.0) gm/dL Hct (34.0-46.0) % MCHC (31.0-37.0) g/dL RDW (11.5-15.5) % Sodium (137-145) mmol/L Chloride (98-107) mmol/L Carbon Dioxide (22-30) mmol/L BUN (7-17) mg/dL Creatinine (0.52-1.04) mg/dL Glucose (74-99) mg/dL POC Glucose (mg/dL) (70-110) mg/dL Hemoglobin A1c 6.9 H (<=6.0) % Magnesium (1.6-2.3) mg/dL TIBC 476 H (228-460) UG/DL Procalcitonin 0.28 H (0.02-0.09) ng/mL 08/08/22 08/08/22 08/08/22 Range/Units 11:57 16:48 18:05 WBC (3.8-10.6) k/uL RBC (3.80-5.40) m/uL Hgb (11.4-16.0) gm/dL Hct (34.0-46.0) % MCHC (31.0-37.0) g/dL RDW (11.5-15.5) % Sodium (137-145) mmol/L Chloride (98-107) mmol/L Carbon Dioxide (22-30) mmol/L BUN (7-17) mg/dL Creatinine (0.52-1.04) mg/dL Glucose (74-99) mg/dL POC Glucose (mg/dL) 260 H 150 H 264 H (70-110) mg/dL Hemoglobin A1c (<=6.0) % Magnesium (1.6-2.3) mg/dL TIBC (228-460) UG/DL Procalcitonin (0.02-0.09) ng/mL 08/09/22 08/09/22 08/09/22 Range/Units 04:33 04:33 06:06 WBC 12.2 H (3.8-10.6) k/uL RBC 3.09 L (3.80-5.40) m/uL Hgb 8.2 L D (11.4-16.0) gm/dL Hct 27.1 L (34.0-46.0) % MCHC 30.4 L (31.0-37.0) g/dL RDW 22.0 H (11.5-15.5) % Sodium 133 L (137-145) mmol/L Chloride 89 L (98-107) mmol/L Carbon Dioxide 34 H (22-30) mmol/L BUN 62 H (7-17) mg/dL Creatinine 1.35 H (0.52-1.04) mg/dL Glucose 221 H (74-99) mg/dL POC Glucose (mg/dL) 282 H (70-110) mg/dL Hemoglobin A1c (<=6.0) % Magnesium 2.6 H (1.6-2.3) mg/dL TIBC (228-460) UG/DL Procalcitonin (0.02-0.09) ng/mL 08/09/22 Range/Units 07:30 WBC (3.8-10.6) k/uL RBC (3.80-5.40) m/uL Hgb (11.4-16.0) gm/dL Hct (34.0-46.0) % MCHC (31.0-37.0) g/dL RDW (11.5-15.5) % Sodium (137-145) mmol/L Chloride (98-107) mmol/L Carbon Dioxide (22-30) mmol/L BUN (7-17) mg/dL Creatinine (0.52-1.04) mg/dL Glucose (74-99) mg/dL POC Glucose (mg/dL) 262 H (70-110) mg/dL Hemoglobin A1c (<=6.0) % Magnesium (1.6-2.3) mg/dL TIBC (228-460) UG/DL Procalcitonin (0.02-0.09) ng/mL Assessment and Plan (1) Anemia Narrative/Plan: Pleasant 81-year-old female with complaints of shortness of breath weakness had presented to an outside facility with a hemoglobin is 7.3 was transfused 1 unit of blood. She has a history of coronary artery disease on aspirin and Plavix, atrial fibrillation, history of iron deficiency anemia on iron and other multiple comorbidities. She had a chest CT done with concerns for pneumonia at the outside facility. Patient denies any blood in her stool or black stool. Denies any abdominal pain, nausea or vomiting. Believe she had recent endoscopic evaluation at [facility] [place] records currently unavailable. Labs are consistent with a normochromic normocytic anemia with a stable hemoglobin of 9.7. Need to consider possible anemia of chronic disease versus acute blood loss anemia unclear what her baseline hemoglobin is as this is her first visit. Will await endoscopic records from [facility]. We've recommended and offered colonoscopy during this hospitalization however patient is refusing. Iron studies within normal limits however on the lower end. We will consult hematology for normocytic normochromic anemia. Current Visit: Yes Status: Acute Code(s): D64.9 - ANEMIA, UNSPECIFIED SNOMED Code(s): 918318425 (2) History of atrial fibrillation Current Visit: Yes Status: Acute Code(s): Z86.79 - PERSONAL HISTORY OF OTHER DISEASES OF THE CIRCULATORY SYSTEM SNOMED Code(s): 790437018 (3) Coronary artery disease Current Visit: Yes Status: Acute Code(s): I25.10 - ATHSCL HEART DISEASE OF [place] CORONARY ARTERY W/O ANG PCTRS SNOMED Code(s): 15474020 (4) Diabetes mellitus Current Visit: Yes Status: Acute Code(s): E11.9 - TYPE 2 DIABETES MELLITUS WITHOUT COMPLICATIONS SNOMED Code(s): 29720956 (5) Hypertension Current Visit: Yes Status: Acute Code(s): I10 - ESSENTIAL (PRIMARY) HYPERTENSION SNOMED Code(s): 62660808 (6) Pneumonia Current Visit: Yes Status: Acute Code(s): J18.9 - PNEUMONIA, UNSPECIFIED ORGANISM SNOMED Code(s): 925100677 Plan: 1. Continue symptomatic and supportive care 2. May resume aspirin and Plavix 3. Protonix 40 mg daily 4. Continue oral iron 5. Anemia workup ordered and reviewed 6. 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 7. Recommend and offered colonoscopy to patient however she is declining 8. Consult to hematology for anemia 9. Defer rest of medical management to primary medical team Thank you for allowing us to participate in the care of the patient, the GI service will sign off, gastroenterology will not be available at the hospital this weekend and through next week. If further evaluation by gastroenterology is required the patient will need transfer as per the primary team's discretion. Dr. Kim Mcmullen I agree with the dictator's note, documented as a scribe by Anita Mukherjee.
--- NOTE | 2022-08-09 13:52 | P.CONS ---
History of Present Illness - Reason for Consult Consult date: 08/09/22 normocytic, normochromic anemia Requesting physician: Anita Wade - Chief Complaint transfer, anemia, pneumonia - History of Present Illness Ms. Collado is an 81-year-old female with a PMH A. fib on aspirin and Plavix, iron deficient anemia, CAD, COPD, CVA, diabetes mellitus, DVT and HTN who was transferred here for concerns of symptomatic anemia and pneumonia. It is documented that the pt Hgb was 7.3 and she was given a unit of blood and transferred for further evaluation. EGD Ana was negative for any unusual findings. Sister at bedside states that she is unsure of her sisters medical history or procedures. There is documentation of chronic anemia, iron deficiency. No documentation of black or bloody stool. Patient sister is reporting that she is very agitated when aroused, "miserable". Patient is sleeping. She sleeps there are entire conversation. WBC 12.2, Hgb 8.2, BUN/cr 62/1.35, saturation 13%, ferritin 48.9. B12 278, folate >20. Oral iron is noted on her home medications Review of Systems Pt has a sitter, family reporting severe agitation when awake. Information taken from the chart Past Medical History Past Medical History: Atrial Fibrillation, Coronary Artery Disease (CAD), COPD, CVA/TIA, Diabetes Mellitus, Deep Vein Thrombosis (DVT), Hypertension, Osteoa rthritis (OA), Pneumonia, Sleep Apnea/CPAP/BIPAP Additional Past Medical History / Comment(s): Anemia, low iron. 3 liters nasal cannula at home. ANIAK. History of Any Multi-Drug Resistant Organisms: None Reported Past Surgical History: Appendectomy, Cholecystectomy, Heart Catheterization Additional Past Surgical History / Comment(s): aortic valve replacement, watchman implant, bilat knee replacements, left hip Past Anesthesia/Blood Transfusion Reactions: No Reported Reaction Additional Past Anesthesia/Blood Transfusion Reaction / Comm: Pt becomes very confused after anesthesia. Smoking Status: Former smoker Past Drug Use History: None Reported - Past Family History Father Family Medical History: Hypertension Mother Family Medical History: AFIB, Coronary Artery Disease (CAD), Hypertension Medications and Allergies Home Medications Medication Instructions Recorded Confirmed Type ALPRAZolam [Xanax] 0.25 mg PO TID PRN 08/07/22 08/07/22 History Aspirin EC [Ecotrin Low Dose] 81 mg PO DAILY 08/07/22 08/07/22 History Azelastine HCl [Astelin Nasal 1 spray EA NOSTRIL BID 08/07/22 08/07/22 History [place]] Calcium Carbonate/Vitamin D3 1 tab PO DAILY 08/07/22 08/07/22 History [Calcium 600 mg-D3 20 mcg (800 unit)] Cholecalciferol [Vitamin D3 (25 50 mcg PO DAILY 08/07/22 08/07/22 History Mcg = 1000 Iu)] Clopidogrel [Plavix] 75 mg PO DAILY 08/07/22 08/07/22 History Collagenase [Santyl Ointment] 1 applic TOPICAL DAILY 08/07/22 08/07/22 History Docusate [Colace] 100 mg PO DAILY 08/07/22 08/07/22 History Empagliflozin [Jardiance] 25 mg PO DAILY 08/07/22 08/07/22 History FLUoxetine HCL [PROzac] 20 mg PO HS 08/07/22 08/07/22 History FLUoxetine HCL [PROzac] 40 mg PO DAILY 08/07/22 08/07/22 History Ferrous Sulfate [Feosol] 325 mg PO DAILY 08/07/22 08/07/22 History Fluticasone Propion/Salmeterol 1 puff INHALATION RT-BID 08/07/22 08/07/22 History [Advair 250-50 Diskus] Furosemide [Lasix] 80 mg PO BID 08/07/22 08/07/22 History HYDROcodone/APAP 5-325MG [[place] 1 tab PO Q6H PRN 08/07/22 08/07/22 History 5-325] Metoprolol Succinate (ER) [Toprol 50 mg PO DAILY 08/07/22 08/07/22 History Xl] Metoprolol Tartrate [Lopressor] 25 mg PO HS PRN 08/07/22 08/07/22 History Prevagen Supplement 1 tab PO DAILY 08/07/22 08/07/22 History Simvastatin [Zocor] 40 mg PO HS 08/07/22 08/07/22 History glipiZIDE [Glucotrol] 5 mg PO BID 08/07/22 08/07/22 History metFORMIN HCL [Glucophage] 850 mg PO BID 08/07/22 08/07/22 History metOLazone [Zaroxolyn] 2.5 mg PO MO PRN 08/07/22 08/07/22 History Allergies Allergy/AdvReac Type Severity Reaction Status Date / Time mirabegron [From Myrbetriq] Allergy Unknown Verified 08/07/22 18:36 pregabalin [From Lyrica] Allergy Confusion Verified 08/07/22 18:36 promethazine [From Phenergan] Allergy Unknown Verified 08/07/22 18:36 solifenacin [From Vesicare] Allergy Anaphylaxis Verified 08/07/22 18:36 Physical Exam Vitals: Vital Signs Temp Pulse Resp BP Pulse Ox 08/09/22 03:31 97.6 F 84 18 84/45 93 L 08/09/22 00:09 18 08/09/22 00:00 98.4 F 86 18 91/42 92 L 08/08/22 20:00 97.8 F 89 18 86/42 92 L 08/08/22 16:00 81 18 88/51 93 L 08/08/22 12:00 98.3 F 79 20 115/73 93 L 08/08/22 08:55 97.9 F 85 20 98/63 94 L Intake and Output 08/08/22 08/09/22 08/09/22 22:59 06:59 14:59 Other: Voiding Method Incontinent # Voids 1 Weight 74.5 kg - Constitutional General appearance: no acute distress, obese - Respiratory Respirations even and unlabored leg Peripheral Edema: bilateral: Trace - Integumentary Integumentary: pale Results CBC & Chem 7: 08/09/22 04:33 08/09/22 04:33 Labs: Abnormal Lab Results - Last 24 Hours (Table) 08/08/22 08/08/22 08/08/22 Range/Units 05:10 05:10 05:10 WBC (3.8-10.6) k/uL RBC (3.80-5.40) m/uL Hgb (11.4-16.0) gm/dL Hct (34.0-46.0) % MCHC (31.0-37.0) g/dL RDW (11.5-15.5) % Sodium (137-145) mmol/L Chloride (98-107) mmol/L Carbon Dioxide (22-30) mmol/L BUN (7-17) mg/dL Creatinine (0.52-1.04) mg/dL Glucose (74-99) mg/dL POC Glucose (mg/dL) (70-110) mg/dL Hemoglobin A1c 6.9 H (<=6.0) % Magnesium (1.6-2.3) mg/dL TIBC 476 H (228-460) UG/DL Procalcitonin 0.28 H (0.02-0.09) ng/mL 08/08/22 08/08/22 08/08/22 Range/Units 11:57 16:48 18:05 WBC (3.8-10.6) k/uL RBC (3.80-5.40) m/uL Hgb (11.4-16.0) gm/dL Hct (34.0-46.0) % MCHC (31.0-37.0) g/dL RDW (11.5-15.5) % Sodium (137-145) mmol/L Chloride (98-107) mmol/L Carbon Dioxide (22-30) mmol/L BUN (7-17) mg/dL Creatinine (0.52-1.04) mg/dL Glucose (74-99) mg/dL POC Glucose (mg/dL) 260 H 150 H 264 H (70-110) mg/dL Hemoglobin A1c (<=6.0) % Magnesium (1.6-2.3) mg/dL TIBC (228-460) UG/DL Procalcitonin (0.02-0.09) ng/mL 08/09/22 08/09/22 08/09/22 Range/Units 04:33 04:33 06:06 WBC 12.2 H (3.8-10.6) k/uL RBC 3.09 L (3.80-5.40) m/uL Hgb 8.2 L D (11.4-16.0) gm/dL Hct 27.1 L (34.0-46.0) % MCHC 30.4 L (31.0-37.0) g/dL RDW 22.0 H (11.5-15.5) % Sodium 133 L (137-145) mmol/L Chloride 89 L (98-107) mmol/L Carbon Dioxide 34 H (22-30) mmol/L BUN 62 H (7-17) mg/dL Creatinine 1.35 H (0.52-1.04) mg/dL Glucose 221 H (74-99) mg/dL POC Glucose (mg/dL) 282 H (70-110) mg/dL Hemoglobin A1c (<=6.0) % Magnesium 2.6 H (1.6-2.3) mg/dL TIBC (228-460) UG/DL Procalcitonin (0.02-0.09) ng/mL 08/09/ Range/Units 07:30 WBC (3.8-10.6) k/uL RBC (3.80-5.40) m/uL Hgb (11.4-16.0) gm/dL Hct (34.0-46.0) % MCHC (31.0-37.0) g/dL RDW (11.5-15.5) % Sodium (137-145) mmol/L Chloride (98-107) mmol/L Carbon Dioxide (22-30) mmol/L BUN (7-17) mg/dL Creatinine (0.52-1.04) mg/dL Glucose (74-99) mg/dL POC Glucose (mg/dL) 262 H (70-110) mg/dL Hemoglobin A1c (<=6.0) % Magnesium (1.6-2.3) mg/dL TIBC (228-460) UG/DL Procalcitonin (0.02-0.09) ng/mL Assessment and Plan (1) Normocytic normochromic anemia Current Visit: Yes Status: Chronic Priority: Medium Code(s): D64.9 - ANEMIA, UNSPECIFIED SNOMED Code(s): 45778715 Plan: Normocytic, normochromic anemia -Documented in the chart history of the same -Oral iron on patient's medication list -Anemia workup showing iron saturation 13%, ferritin 48. Few additional labs ordered. It's reasonable to give patient parenteral iron -EGD done in April negative for any pathological findings or underlying causes for anemia. Per documentation patient has refused colonoscopy. -Erythropoietin level ordered as patient does have elevated BUN and creatinine. Could CKD contributing to her anemia? attests: I seen and examined patient, performed H&P, developed impression and plan of care. Discussed with dictator. Agree with documentation, dictated as described.
[2022-08-09] MEDS: SODIUM FERRIC GLUCONAT-SUCROSE 125 MG in SODIUM CHLORIDE 0.9% 100 ML IVPB SCH (16:11)
[2022-08-09 16:23] LABS: Glucose,Whole Blood 147 mg/dL (70-110)
--- NOTE | 2022-08-09 17:01 | P.PN ---
Subjective Progress Note Date: 08/09/22 81-year-old pleasant female was brought in because of generalized weakness. Patient is found to be in congestive heart failure, patient does have some shortness of breath patient uses 3 L of oxygen for COPD, presently on 4 L and patient denied any fever chills patient any cough. Patient denied any orthopnea or paroxysmal nocturnal dyspnea. Patient does have leukocytosis. There was a concern about a GI bleed patient does have problems with daily because of INR supplementation. Patient the family denied any obvious GI bleed clinically although occasionally patient will have blood in the stools secondary to hemorrhoids. Patient hemoglobin is 9.7 patient is a monitor. Obesity transfusion as had hemoglobin at outside hospital was around 7. Patient had adhesions in the past for low hemoglobin. Patient serum iron is 63 and ferritin is 49. Patient does have bilateral pedal edema. Patient does have history of atrial fibrillation for which patient underwent a watchman procedure anticoagul ation patient is also on 2 antiplatelet therapy had a cardiac catheterization unsure when her stents were placed. Patient does take 80 mg twice a day of Lasix along with as needed weekly metolazone. 08/09/2022 Patient is seen and evaluated in follow-up today sleeping and minimally arousable although when aroused patient is confused. Patient recently received Haldol and is on as needed Seroquel at night although per his nursing staff did not help a bit. Patient had been restless and thrashing out and about pulling on IVs and hitting at staff and currently with a sitter at the bedside for s afety. Family reports she does experience hospital acquired delirium. Patient is maintained on IV Lasix with cardiology following and GI had evaluated the patient and hematology is consulted and pending and will consult nephrology as patient is having worsening kidney functions and unsure if patient has chronic kidney disease. Patient does have history of anemia noted on the chart and hematology undergoing further workup. Patient will receive IV iron. Hemoglobin is down from yesterday of 9.7 and is currently 8.2 today with no active bleeding noted. Sodium is 133 with a potassium of 3.8, BUN is 62 and creatinine is 1.35 and blood sugars are elevated and patient does have history of diabetes. Recommend frequent reorientation with family and using scheduled Seroquel. Patient does chronically wear oxygen outpatient and of note on exam patient is a mouth breathe readings per nursing staff although oxygen saturations reevaluated and oxygen saturations are 90-94% on 4-5 L via nasal cannula. REVIEW OF SYSTEMS: Unable to obtain as patient is sleeping and confused PHYSICAL EXAMINATION: GENERAL: The patient is alert and oriented x0, resting and has just received Haldol. Well developed, well nourished. Obese. HEENT: Pupils are round and equally reacting to light. EOMI. No scleral icterus. No conjunctival pallor. Normocephalic, atraumatic. No pharyngeal erythema. No thyromegaly. CARDIOVASCULAR: S1 and S2 present. No murmurs, rubs, or gallops. PULMONARY: Chest is clear to auscultation, coarse rhonchi noted ABDOMEN: Soft, obese. nontender, nondistended, normoactive bowel sounds. No palpable organomegaly. MUSCULOSKELETAL: No joint swelling or deformity. EXTREMITIES: No cyanosis, clubbing, bilateral lower extremity edema 1+ NEUROLOGICAL: Gross neurological examination did not reveal any focal deficits. Diffusely weak and restless at times. Difficult to completely assess SKIN: No rashes. Assessment: -Generalized weakness probably secondary to congestive heart failure, unknown whether patient has systolic and diastolic dysfunction. Echo is pending. patient in is in heart failure exacerbation patient will be started on IV Lasix 60 twice a day IV. Cardiology following -Atrial fibrillation paroxysmal patient has a watchman procedure -Iron deficiency anemia: No evidence of acute GI bleed at this time patient probably can be resumed on aspirin and Plavix patient is on oral iron supplementation and being transitioned to IV iron -Hypervolemic hyponatremia secondary to heart failure expected improvement Lasix -Leukocytosis: Reactive without any clear evidence of infection -Type 2 diabetes mellitus: Hold off on metformin, continue sliding scale insulin -Coronary artery disease -COPD without any acute exacerbation patient has chronic hypercapnic respiratory failure and wears oxygen outpatient -Acute hypoxic respiratory failure secondary to CHF exacerbation, unknown EF -History of DVT in the past presently not on any anticoagulation as mentioned above -Sleep apnea -No code DVT prophylaxis: Subcutaneous heparin - Plan: Recommend continue with current medications and maintain on IV Lasix although kidney functions worsening most likely has some form of chronic kidney disease although no history here and will consult nephrology and appreciate input and recommendations. Patient does wear oxygen outpatient and currently maintained on 4-5 L. Patient is clearly a mouth breather on exam Recommend monitor Accu-Cheks along with sliding scale and long-acting continue with heart healthy, diabetic diet Patient was seen and evaluated by GI with no evidence of a GI bleed and recently had an EGD in the outpatient setting in [facility] awaiting reports and patient had refused colonoscopy. Colonoscopy was offered here with GI and patient refused. Hemoglobin is slightly lower today at 8.2 with no active bleeding noted and hematology has been consulted and ordered IV iron Recommend follow-up labs Patient appears to be restless and confused most likely hospital-acquired delirium and will use scheduled Seroquel and as needed Haldol as patient was pulling out IVs and lines. Recommend safety pin assembling machine operator at bedside Recommend frequent reorientation with windows and blinds open during the day with family members present as much as possible The impression and plan of care has been dictated by Cici Jeong, Nurse Practitioner as directed. Dr. Rafat MD I have performed a history and examination and MDM of this patient, discussed the same with the dictator, and agree with the dictator's assessment and plan as written ,documented as a scribe. Based on total visit time, I have performed more than 50% of the visit. Objective - Vital Signs Vital signs: Vital Signs Temp 97.6 F 08/09/22 13:20 Pulse 74 08/09/22 13:20 Resp 18 08/09/22 13:20 BP 122/60 08/09/22 13:20 Pulse Ox 92 L 08/09/22 13:20 FiO2 Intake & Output 08/08/22 08/09/22 08/09/22 18:59 06:59 18:59 Intake Total 0 110 Balance 0 110 Weight 78.925 kg 74.5 kg Intake: Oral 0 110 Other: Voiding Method Incontinent Incontinent Incontinent # Voids 1 1 2 # Bowel Movements 1 - Labs CBC & Chem 7: 08/09/22 04:33 08/09/22 04:33 Labs: Abnormal Lab Results - Last 24 Hours (Table) 08/08/22 08/08/22 08/08/22 Range/Units 05:10 16:48 18:05 WBC (3.8-10.6) k/uL RBC (3.80-5.40) m/uL Hgb (11.4-16.0) gm/dL Hct (34.0-46.0) % MCHC (31.0-37.0) g/dL RDW (11.5-15.5) % Retic Count (0.5-2.0) % Sodium (137-145) mmol/L Chloride (98-107) mmol/L Carbon Dioxide (22-30) mmol/L BUN (7-17) mg/dL Creatinine (0.52-1.04) mg/dL Glucose (74-99) mg/dL POC Glucose (mg/dL) 150 H 264 H (70-110) mg/dL Magnesium (1.6-2.3) mg/dL Iron (50-170) UG/DL % Saturation (12.00-45.00) Procalcitonin 0.28 H (0.02-0.09) ng/mL 08/09/22 08/09/22 08/09/22 Range/Units 04:33 04:33 06:06 WBC 12.2 H (3.8-10.6) k/uL RBC 3.09 L (3.80-5.40) m/uL Hgb 8.2 L D (11.4-16.0) gm/dL Hct 27.1 L (34.0-46.0) % MCHC 30.4 L (31.0-37.0) g/dL RDW 22.0 H (11.5-15.5) % Retic Count (0.5-2.0) % Sodium 133 L (137-145) mmol/L Chloride 89 L (98-107) mmol/L Carbon Dioxide 34 H (22-30) mmol/L BUN 62 H (7-17) mg/dL Creatinine 1.35 H (0.52-1.04) mg/dL Glucose 221 H (74-99) mg/dL POC Glucose (mg/dL) 282 H (70-110) mg/dL Magnesium 2.6 H (1.6-2.3) mg/dL Iron 29 L (50-170) UG/DL % Saturation 6.52 L (12.00-45.00) Procalcitonin (0.02-0.09) ng/mL 08/09/22 08/09/22 08/09/22 Range/Units 07:30 09:31 11:25 WBC (3.8-10.6) k/uL RBC (3.80-5.40) m/uL Hgb (11.4-16.0) gm/dL Hct (34.0-46.0) % MCHC (31.0-37.0) g/dL RDW (11.5-15.5) % Retic Count 9.0 H (0.5-2.0) % Sodium (137-145) mmol/L Chloride (98-107) mmol/L Carbon Dioxide (22-30) mmol/L BUN (7-17) mg/dL Creatinine (0.52-1.04) mg/dL Glucose (74-99) mg/dL POC Glucose (mg/dL) 262 H 194 H (70-110) mg/dL Magnesium (1.6-2.3) mg/dL Iron (50-170) UG/DL % Saturation (12.00-45.00) Procalcitonin (0.02-0.09) ng/mL
[2022-08-09 20:01] LABS: Glucose,Whole Blood 151 mg/dL (70-110)
[2022-08-09] MEDS: ATORVASTATIN 20 MG TAB PO SCH (20:48)
[2022-08-09] MEDS: QUEtiapine 25 MG TAB PO SCH (20:48)
[2022-08-09] MEDS: INSULIN DETEMIR (LEVEMIR) 100 UNIT/ML SYR SQ SCH (20:52)
[2022-08-10] MEDS: HALOPERIDOL LACTATE 5 MG/ML 1 ML VIAL IVP PRN (03:53)
[2022-08-10 06:02] LABS: Glucose,Whole Blood 120 mg/dL (70-110)
[2022-08-10] MEDS: INSULIN ASPART (NovoLOG) 100 UNIT/ML VIAL SQ SCH ×7 (06:43→20:37)
[2022-08-10] MEDS: ACETAMINOPHEN TAB 325 MG TAB PO PRN ×2 (06:56→15:07)
[2022-08-10 06:58] LABS: Anisocytosis Moderate; Basophils % (A) 0 %; Eosinophils # (A) 0.3 k/uL (0-0.7); Eosinophils % (A) 3 %; HCT 28.1 % (34.0-46.0); HGB 8.5 gm/dL (11.4-16.0); Hypochromasia Marked; Lymphocytes # (A) 1.7 k/uL (1.0-4.8); Lymphocytes % (A) 15 %; MCH 26.3 pg (25.0-35.0); MCHC 30.1 g/dL (31.0-37.0); MCV 87.4 fL (80.0-100.0); Mean Platelet Volume 8.6; Microcytosis Slight; Monocytes # (A) 0.9 k/uL (0-1.0); Monocytes % (A) 8 %; Neutrophils # (A) 7.9 k/uL (1.3-7.7); Neutrophils % (A) 71 %; Platelet Count 322 k/uL (150-450); Poikilocytosis Moderate; RBC 3.22 m/uL (3.80-5.40); RDW 22.2 % (11.5-15.5); WBC 11.1 k/uL (3.8-10.6)
[2022-08-10 07:09] LABS: African American GFR (CKD) 53 (>60 ml/min/1.73 sqM); Anion Gap 10 mmol/L; Blood Urea Nitrogen 61 mg/dL (7-17); Calcium 9.1 mg/dL (8.4-10.2); Carbon Dioxide 32 mmol/L (22-30); Chloride 90 mmol/L (98-107); Glucose 110 mg/dL (74-99); Non-African American GFR(CKD) 46 (>60 ml/min/1.73 sqM); Potassium 3.7 mmol/L (3.5-5.1); Sodium 132 mmol/L (137-145)
[2022-08-10] MEDS: FUROSEMIDE 10 MG/ML 10 ML VIAL IV SCH (08:43)
[2022-08-10] MEDS: SODIUM FERRIC GLUCONAT-SUCROSE 125 MG in SODIUM CHLORIDE 0.9% 100 ML IVPB SCH (08:43)
[2022-08-10] MEDS: PANTOPRAZOLE 40 MG/10 ML VIAL IV SCH (08:44)
[2022-08-10] MEDS: METOPROLOL SUCCINATE (ER) 25 MG TAB.ER.24H PO SCH (08:45)
[2022-08-10] MEDS: CLOPIDOGREL 75 MG TAB PO SCH (08:45)
[2022-08-10] MEDS: FLUoxetine HCL 20 MG CAP PO SCH ×2 (08:45→20:36)
[2022-08-10] MEDS: ASPIRIN 81 MG PO SCH (08:45)
[2022-08-10] MEDS: AZELASTINE 137MCG/SPRAY EA NOSTRIL SCH ×2 (08:50→20:38)
[2022-08-10] MEDS: CHOLECALCIFEROL 25 MCG (1000 IU) TABLET PO SCH (08:57)
[2022-08-10] MEDS: CALCIUM CARB-VIT D 500 MG-5 MCG TAB PO SCH (08:57)
[2022-08-10] MEDS: SYMBICORT 80-4.5 MCG INHALER INHALATION SCH ×2 (09:27→21:21)
--- NOTE | 2022-08-10 09:44 | P.PN ---
Subjective Progress Note Date: 08/10/22 HISTORY OF PRESENT ILLNESS: This is an 81-year-old female who presented to the hospital chief complaint of shortness of breath. Patient was found to be in acute congestive heart failure and was started on IV Lasix. Patient is also being evaluated for her anemia. Patient examined this morning at the bedside. Patient remains confused this morning. She denies chest pain or pressure. She denies shortness of breath. Telemetry reveals atrial fibrillation with controlled ventricular rate. Vital signs are stable. Blood pressure has improved from yesterday. 08/10/2022 Patient examined this morning to bedside. Patient remains confused. There is a safety manager at the bedside. Patient denies chest pain or pressure. She denies shortness of breath. She reports inability to get comfortable in bed and did not sleep last night. Telemetry reveals sinus mechanism. Blood pressure is stable with a recent reading of 106/51. Patient remains on IV Lasix. Echocardiogram completed revealing ejection fraction 50-55%, severe left and right ventricular dilatation, bioprosthetic aortic valve, increased pressure gradient noted throughout the valve, trace prosthetic aortic valve regurgitation, moderate tricuspid regurgitation, and moderate pulmonary hypertension. PHYSICAL EXAM: VITAL SIGNS: Reviewed. GENERAL: Well-developed in no acute distress. NECK: Supple. No JVD or thyromegaly LUNGS: Respirations even and unlabored. Lungs diminished to auscultation bilaterally. HEART: Regular rate and rhythm. S1 and S2 heard. Systolic murmur noted EXTREMITIES: Normal range of motion. No clubbing or cyanosis. Peripheral pulses intact. No lower extremity edema ASSESSMENT: Shortness of breath Acute exacerbation of congestive heart failure with preserved EF Paroxysmal atrial fibrillation History of aortic valve replacement History of Watchman device Hypertension History of COPD History of CVA Diabetes PLAN: Discontinue IV Lasix Resume home dose of oral lasix Daily weights, accurate I&O, and monitoring of kidney function Continue additional cardiac medications Further recommendations pending patient course Nurse practitioner note has been reviewed by physician. Signing provider agrees with the documented findings, assessment, and plan of care. Objective - Vital Signs Vital signs: Vital Signs Temp 97.9 F 08/10/22 08:00 Pulse 71 08/10/22 08:00 Resp 17 08/10/22 08:00 BP 106/51 08/10/22 08:00 Pulse Ox 96 08/10/22 09:29 FiO2 Intake & Output 08/09/22 08/10/22 08/10/22 18:59 06:59 18:59 Intake Total 220 Output Total 1601 350 Balance 220 -1601 -350 Weight 74.5 kg 76.5 kg Intake: Oral 220 Output: Urine 725 350 Post Void Residual 876 Other: Voiding Method Incontinent Indwelling Catheter # Voids 1 - Labs CBC & Chem 7: 08/10/22 06:28 08/10/22 06:28 Labs: Abnormal Lab Results - Last 24 Hours (Table) 08/09/22 08/09/22 08/09/22 Range/Units 04:33 09:31 11:25 WBC (3.8-10.6) k/uL RBC (3.80-5.40) m/uL Hgb (11.4-16.0) gm/dL Hct (34.0-46.0) % MCHC (31.0-37.0) g/dL RDW (11.5-15.5) % Neutrophils # (1.3-7.7) k/uL Retic Count 9.0 H (0.5-2.0) % Sodium (137-145) mmol/L Chloride (98-107) mmol/L Carbon Dioxide (22-30) mmol/L BUN (7-17) mg/dL Creatinine (0.52-1.04) mg/dL Glucose (74-99) mg/dL POC Glucose (mg/dL) 194 H (70-110) mg/dL % Saturation 6.52 L (12.00-45.00) 08/09/22 08/09/22 08/10/22 Range/Units 16:21 19:59 06:01 WBC (3.8-10.6) k/uL RBC (3.80-5.40) m/uL Hgb (11.4-16.0) gm/dL Hct (34.0-46.0) % MCHC (31.0-37.0) g/dL RDW (11.5-15.5) % Neutrophils # (1.3-7.7) k/uL Retic Count (0.5-2.0) % Sodium (137-145) mmol/L Chloride (98-107) mmol/L Carbon Dioxide (22-30) mmol/L BUN (7-17) mg/dL Creatinine (0.52-1.04) mg/dL Glucose (74-99) mg/dL POC Glucose (mg/dL) 147 H 151 H 120 H (70-110) mg/dL % Saturation (12.00-45.00) 08/10/22 08/10/22 Range/Units 06:28 06:28 WBC 11.1 H (3.8-10.6) k/uL RBC 3.22 L (3.80-5.40) m/uL Hgb 8.5 L (11.4-16.0) gm/dL Hct 28.1 L (34.0-46.0) % MCHC 30.1 L (31.0-37.0) g/dL RDW 22.2 H (11.5-15.5) % Neutrophils # 7.9 H (1.3-7.7) k/uL Retic Count (0.5-2.0) % Sodium 132 L (137-145) mmol/L Chloride 90 L (98-107) mmol/L Carbon Dioxide 32 H (22-30) mmol/L BUN 61 H (7-17) mg/dL Creatinine 1.12 H (0.52-1.04) mg/dL Glucose 110 H (74-99) mg/dL POC Glucose (mg/dL) (70-110) mg/dL % Saturation (12.00-45.00)
--- NOTE | 2022-08-10 10:50 | P.NPCON ---
History of Present Illness - Reason for Consult acute renal failure - History of Present Illness Patient is an 81-year-old female who was admitted to the hospital with complaints of shortness of breath. Patient was noted to be in CHF and volume overload and has been diuresed. Patient has also had delirium. Currently there is a sitter at bedside. Patient does not want to wear any gown. Blood pressure was low systolic noted in the 80s on 08/08/2022 Currently maintained on oral Lasix Patient was noted to have significant retention last night with post void residual at 876. A Webb catheter was placed and patient has had good urine output. Serum creatinine is down to 1.1 from 1.35 yesterday. Review of Systems As per HPI Past Medical History Past Medical History: Atrial Fibrillation, Coronary Artery Disease (CAD), COPD, CVA/TIA, Diabetes Mellitus, Deep Vein Thrombosis (DVT), Hypertension, Osteoarthritis (OA), Pneumonia, Sleep Apnea/CPAP/BIPAP Additional Past Medical History / Comment(s): Anemia, low iron. 3 liters nasal cannula at home. [place]. History of Any Multi-Drug Resistant Organisms: None Reported Past Surgical History: Appendectomy, Cholecystectomy, Heart Catheterization Additional Past Surgical History / Comment(s): aortic valve replacement, watchman implant, bilat knee replacements, left hip Past Anesthesia/Blood Transfusion Reactions: No Reported Reaction Additional Past Anesthesia/Blood Transfusion Reaction / Comment(s): Pt becomes very confused after anesthesia. Smoking Status: Former smoker Past Drug Use History: None Reported - Past Family History Father Family Medical History: Hypertension Mother Family Medical History: AFIB, Coronary Artery Disease (CAD), Hypertension Medications and Allergies Home Medications Medication Instructions Recorded Confirmed Type ALPRAZolam [Xanax] 0.25 mg PO TID PRN 08/07/22 08/07/22 History Aspirin EC [Ecotrin Low Dose] 81 mg PO DAILY 08/07/22 08/07/22 History Azelastine HCl [Astelin Nasal 1 spray EA NOSTRIL BID 08/07/22 08/07/22 History [place]] Calcium Carbonate/Vitamin D3 1 tab PO DAILY 08/07/22 08/07/22 History [Calcium 600 mg-D3 20 mcg (800 unit)] Cholecalciferol [Vitamin D3 (25 50 mcg PO DAILY 08/07/22 08/07/22 History Mcg = 1000 Iu)] Clopidogrel [Plavix] 75 mg PO DAILY 08/07/22 08/07/22 History Collagenase [Santyl Ointment] 1 applic TOPICAL DAILY 08/07/22 08/07/22 History Docusate [Colace] 100 mg PO DAILY 08/07/22 08/07/22 History Empagliflozin [Jardiance] 25 mg PO DAILY 08/07/22 08/07/22 History FLUoxetine HCL [PROzac] 20 mg PO HS 08/07/22 08/07/22 History FLUoxetine HCL [PROzac] 40 mg PO DAILY 08/07/22 08/07/22 History Ferrous Sulfate [Feosol] 325 mg PO DAILY 08/07/22 08/07/22 History Fluticasone Propion/Salmeterol 1 puff INHALATION RT-BID 08/07/22 08/07/22 History [Advair 250-50 Diskus] Furosemide [Lasix] 80 mg PO BID 08/07/22 08/07/22 History HYDROcodone/APAP 5-325MG [[place] 1 tab PO Q6H PRN 08/07/22 08/07/22 History 5-325] Metoprolol Succinate (ER) [Toprol 50 mg PO DAILY 08/07/22 08/07/22 History Xl] Metoprolol Tartrate [Lopressor] 25 mg PO HS PRN 08/07/22 08/07/22 History Prevagen Supplement 1 tab PO DAILY 08/07/22 08/07/22 History Simvastatin [Zocor] 40 mg PO HS 08/07/22 08/07/22 History glipiZIDE [Glucotrol] 5 mg PO BID 08/07/22 08/07/22 History metFORMIN HCL [Glucophage] 850 mg PO BID 08/07/22 08/07/22 History metOLazone [Zaroxolyn] 2.5 mg PO MO PRN 08/07/22 08/07/22 History Allergies Allergy/AdvReac Type Severity Reaction Status Date / Time mirabegron [From Myrbetriq] Allergy Unknown Verified 08/07/22 18:36 pregabalin [From Lyrica] Allergy Confusion Verified 08/07/22 18:36 promethazine [From Phenergan] Allergy Unknown Verified 08/07/22 18:36 solifenacin [From Vesicare] Allergy Anaphylaxis Verified 08/07/22 18:36 Physical Exam Vitals: Vital Signs Temp Pulse Resp BP Pulse Ox 08/10/22 09:29 96 08/10/22 08:00 97.9 F 71 17 106/51 99 08/10/22 03:48 98 F 71 16 115/50 100 08/09/22 23:46 97.1 F L 77 16 101/50 93 L 08/09/22 20:00 97.5 F L 66 16 102/49 95 08/09/22 16:20 67 16 103/57 94 L 08/09/22 13:20 97.6 F 74 18 122/60 90 L Intake and Output 08/09/22 08/10/22 08/10/22 22:59 06:59 14:59 Intake Total 110 Output Total 1601 350 Balance 110 -1601 -350 Intake: Oral 110 Output: Urine 725 350 Post Void Residual 876 Other: Voiding Method Incontinent Indwelling Catheter # Voids 1 Weight 76.5 kg Patient is awake, comfortable, no acute distress She does not communicate much, but answering questions appropriately. Examination of the heart S1 and S2 Examination of the lungs bilateral breath sounds are heard no crackles or wheezing is heard Abdomen is soft nontender Examination lower extremity shows no significant edema Results - Lab Results Most recent lab results Calcium 9.1 mg/dL (8.4-10.2) 08/10/22 06:28 Magnesium 2.6 mg/dL (1.6-2.3) H 08/09/22 04:33 08/10/22 06:28 08/10/22 06:28 Assessment and Plan Assessment: 1. Acute kidney injury secondary to urine retention and hypotension, currently improved. Patient has an indwelling Webb catheter 2. Volume overload currently improved 3. Acute CHF with preserved ejection fraction 3. Anemia with hemoglobin down to 8.5 g/dL from 9.7 on initial admission. Iron saturation was low at 6.5 and patient is currently receiving IV iron. Plan: Continue with oral Lasix Continue with Webb catheter May continue with farxiga Repeat labs in a.m. Encourage increased oral intake
[2022-08-10 11:47] LABS: Glucose,Whole Blood 159 mg/dL (70-110)
[2022-08-10] MEDS: FUROSEMIDE 80 MG TAB PO SCH (15:07)
[2022-08-10 16:47] LABS: Glucose,Whole Blood 153 mg/dL (70-110)
--- NOTE | 2022-08-10 17:01 | P.PN ---
Subjective Progress Note Date: 08/10/22 81-year-old pleasant female was brought in because of generalized weakness. Patient is found to be in congestive heart failure, patient does have some shortness of breath patient uses 3 L of oxygen for COPD, presently on 4 L and patient denied any fever chills patient any cough. Patient denied any orthopnea or paroxysmal nocturnal dyspnea. Patient does have leukocytosis. There was a concern about a GI bleed patient does have problems with daily because of INR supplementation. Patient the family denied any obvious GI bleed clinically although occasionally patient will have blood in the stools secondary to hemorrhoids. Patient hemoglobin is 9.7 patient is a monitor. Obesity transfusion as had hemoglobin at outside hospital was around 7. Patient had adhesions in the past for low hemoglobin. Patient serum iron is 63 and ferritin is 49. Patient does have bilateral pedal edema. Patient does have history of atrial fibrillation for which patient underwent a watchman procedure anticoagulation patient is also on 2 antiplatelet therapy had a cardiac catheterization unsure when her stents were placed. Patient does take 80 mg twice a day of Lasix along with as needed weekly metolazone. 08/09/2022 Patient is seen and evaluated in follow-up today sleeping and minimally arousable although when aroused patient is confused. Patient recently received Haldol and is on as needed Seroquel at night although per his nursing staff did not help a bit. Patient had been restless and thrashing out and about pulling on IVs and hitting at staff and currently with a sitter at the bedside for saf ety. Family reports she does experience hospital acquired delirium. Patient is maintained on IV Lasix with cardiology following and GI had evaluated the patient and hematology is consulted and pending and will consult nephrology as patient is having worsening kidney functions and unsure if patient has chronic kidney disease. Patient does have history of anemia noted on the chart and hematology undergoing further workup. Patient will receive IV iron. Hemoglobin is down from yesterday of 9.7 and is currently 8.2 today with no active bleeding noted. Sodium is 133 with a potassium of 3.8, BUN is 62 and creatinine is 1.35 and blood sugars are elevated and patient does have history of diabetes. Recommend frequent reorientation with family and using scheduled Seroquel. Patient does chronically wear oxygen outpatient and of note on exam patient is a mouth breathe readings per nursing staff although oxygen saturations reevaluated and oxygen saturations are 90-94% on 4-5 L via nasal cannula. 08/10/2022 Patient evaluated today resting in bed just to have acute confusion however patient is responsive and reporting no acute complaints at this time. Cardiology following and has transitioned patient to oral Lasix today. Creatinine has mproved and down to 1.12. Continues on 4L of oxygen. Echocardiogram was a technically difficult study LV systolic function is fairly well preserved with moderate concentric LVH. 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 REVIEW OF SYSTEMS: Unable to obtain as patient is sleeping and confused PHYSICAL EXAMINATION: GENERAL: The patient is alert and oriented x0, resting and has just received Pascal ldol. Well developed, well nourished. Obese. HEENT: Pupils are round and equally reacting to light. EOMI. No scleral icterus. No conjunctival pallor. Normocephalic, atraumatic. No pharyngeal erythema. No thyromegaly. CARDIOVASCULAR: S1 and S2 present. No murmurs, rubs, or gallops. PULMONARY: Chest is clear to auscultation, coarse rhonchi noted ABDOMEN: Soft, obese. nontender, nondistended, normoactive bowel sounds. No palpable organomegaly. MUSCULOSKELETAL: No joint swelling or deformity. EXTREMITIES: No cyanosis, clubbing, bilateral lower extremity edema 1+ NEUROLOGICAL: Gross neurological examination did not reveal any focal deficits. Diffusely weak and restless at times. Difficult to completely assess SKIN: No rashes. Assessment: -Generalized weakness probably secondary to congestive heart failure diastolic dysfunction transitioned to oral Lasix Cardiology following -Atrial fibrillation paroxysmal patient has a watchman procedure -Iron deficiency anemia: No evidence of acute GI bleed at this time patient probably can be resumed on aspirin and Plavix patient is on oral iron supplementation and being transitioned to IV iron -Hypervolemic hyponatremia secondary to heart failure expected improvement Lasix -Acute kidney injury due to urinary retention and hypotension -Urinary retention with indwelling catheter in place -Leukocytosis: Reactive without any clear evidence of infection -Type 2 diabetes mellitus: Hold off on metformin, continue sliding scale insulin -Coronary artery disease -COPD without any acute exacerbation patient has chronic hypercapnic respiratory failure and wears oxygen outpatient -Acute hypoxic respiratory failure secondary to CHF exacerbation, unknown EF -History of DVT in the past presently not on any anticoagulation as mentioned above -Sleep apnea -No code DVT prophylaxis: Subcutaneous heparin Plan: Nephrology consultation pt is transitioned to oral lasix. Patient does wear oxygen outpatient and currently maintained on 4-5 L. Patient is clearly a mouth breather on exam Patient was seen and evaluated by GI with no evidence of a GI bleed and recently had an EGD in the outpatient setting in [facility] awaiting reports and patient had refused colonoscopy. Colonoscopy was offered here with GI and patient refused. Patient appears to be restless and confused most likely hospital-acquired delirium and will use scheduled Seroquel and as needed Haldol as patient was pulling out IVs and lines. Recommend director of safety at bedside IDC inserted for urinary retention recommend to check a urinalysis and culture rule out acute UTI. Recommend frequent reorientation with windows and blinds open during the day with family members present as much as possible Follow up Labs in AM The impression and plan of care has been dictated by Irene Jaimes Nurse Practitioner as directed. Dr. Rafat MD I have performed a history and physical examination and medical decision making of this patient, discussed the same with the dictator, and agree with the dictators assessment and plan as written, documented as a scribe. Based on total visit time, I have performed more than 50% of this visit. Objective - Vital Signs Vital signs: Vital Signs Temp 98.5 F 08/10/22 16:00 Pulse 66 08/10/22 16:00 Resp 18 08/10/22 16:00 BP 114/69 08/10/22 16:00 Pulse Ox 98 08/10/22 16:00 FiO2 Intake & Output 08/09/22 08/10/22 08/10/22 18:59 06:59 18:59 Intake Total 220 Output Total 1601 350 Balance 220 -1601 -350 Weight 74.5 kg 76.5 kg Intake: Oral 220 Output: Urine 725 350 Post Void Residual 876 Other: Voiding Method Incontinent Indwelling Catheter Indwelling Catheter # Voids 1 - Labs CBC & Chem 7: 08/10/22 06:28 08/10/22 06:28 Labs: Abnormal Lab Results - Last 24 Hours (Table) 08/09/22 08/10/22 08/10/22 Range/Units 19:59 06:01 06:28 WBC 11.1 H (3.8-10.6) k/uL RBC 3.22 L (3.80-5.40) m/uL Hgb 8.5 L (11.4-16.0) gm/dL Hct 28.1 L (34.0-46.0) % MCHC 30.1 L (31.0-37.0) g/dL RDW 22.2 H (11.5-15.5) % Neutrophils # 7.9 H (1.3-7.7) k/uL Sodium (137-145) mmol/L Chloride (98-107) mmol/L Carbon Dioxide (22-30) mmol/L BUN (7-17) mg/dL Creatinine (0.52-1.04) mg/dL Glucose (74-99) mg/dL POC Glucose (mg/dL) 151 H 120 H (70-110) mg/dL 08/10/22 08/10/22 08/10/22 Range/Units 06:28 11:45 16:45 WBC (3.8-10.6) k/uL RBC (3.80-5.40) m/uL Hgb (11.4-16.0) gm/dL Hct (34.0-46.0) % MCHC (31.0-37.0) g/dL RDW (11.5-15.5) % Neutrophils # (1.3-7.7) k/uL Sodium 132 L (137-145) mmol/L Chloride 90 L (98-107) mmol/L Carbon Dioxide 32 H (22-30) mmol/L BUN 61 H (7-17) mg/dL Creatinine 1.12 H (0.52-1.04) mg/dL Glucose 110 H (74-99) mg/dL POC Glucose (mg/dL) 159 H 153 H (70-110) mg/dL Assessment and Plan Time with Patient: Less than 30
[2022-08-10 20:11] LABS: Glucose,Whole Blood 190 mg/dL (70-110)
[2022-08-10] MEDS: QUEtiapine 25 MG TAB PO SCH (20:36)
[2022-08-10] MEDS: ATORVASTATIN 20 MG TAB PO SCH (20:36)
[2022-08-10] MEDS: INSULIN DETEMIR (LEVEMIR) 100 UNIT/ML SYR SQ SCH (20:37)
[2022-08-11 01:07] LABS: Appearance,Urine Clear (Clear); Bilirubin,Urine Negative (Negative); Blood,Urine Negative (Negative); Color,Urine Light Yellow; Glucose,Urine (UA) 3+ (Negative); Hyaline Casts,Urine 16 /lpf (0-2); Ketones,Urine 1+ (Negative); Leukocyte Esterase,Urine Trace (Negative); Mucus,Urine Rare /hpf; Nitrite,Urine Negative (Negative); PH, Urine 5.5 (5.0-8.0); Protein,Urine Negative (Negative); RBC,Urine <1 /hpf (0-5); Squamous Epithelial Cell,Urine <1 /hpf (0-4); Urobilinogen,Urine <2.0 mg/dL (<2.0); WBC,Urine 4 /hpf (0-5)
[2022-08-11 06:05] LABS: Glucose,Whole Blood 141 mg/dL (70-110)
[2022-08-11] MEDS: INSULIN ASPART (NovoLOG) 100 UNIT/ML VIAL SQ SCH ×7 (06:08→20:37)
--- NOTE | 2022-08-11 08:45 | P.PN ---
Subjective Patient is seen for follow-up for acute kidney injury. Patient is currently being diuresed for volume overload. Lasix is being changed to oral. Serum creatinine 1.1 yesterday. Good urine output. Sitter present at bedside. Good oral intake per sitter. Objective - Vital Signs Vital signs: Vital Signs Temp 98 F 08/11/22 04:00 Pulse 77 08/11/22 04:00 Resp 16 08/11/22 04:00 BP 106/71 08/11/22 04:00 Pulse Ox 100 08/11/22 04:00 FiO2 Intake & Output 08/10/22 08/11/22 08/11/22 18:59 06:59 18:59 Intake Total 180 Output Total 350 900 Balance -350 -900 180 Weight 76.5 kg Intake: Oral 180 Output: Urine 350 900 Other: Voiding Method Indwelling Catheter Indwelling Catheter - Exam Patient is awake, comfortable, no acute distress On 6 questions appropriately. Examination of the heart S1 and S2 Examination of the lungs bilateral breath sounds are heard no crackles or wheezing is heard Abdomen is soft nontender Examination lower extremity shows no significant edema - Labs CBC & Chem 7: 08/10/22 06:28 08/10/22 06:28 Labs: Abnormal Lab Results - Last 24 Hours (Table) 08/10/22 08/10/22 08/10/22 Range/Units 11:45 16:45 20:09 POC Glucose (mg/dL) 159 H 153 H 190 H (70-110) mg/dL Urine Glucose (UA) (Negative) Urine Ketones (Negative) Ur Leukocyte Esterase (Negative) Hyaline Casts (0-2) /lpf Urine Mucus (None) /hpf 08/11/22 08/11/22 Range/Units 00:05 06:03 POC Glucose (mg/dL) 141 H (70-110) mg/dL Urine Glucose (UA) 3+ H (Negative) Urine Ketones 1+ H (Negative) Ur Leukocyte Esterase Trace H (Negative) Hyaline Casts 16 H (0-2) /lpf Urine Mucus Rare H (None) /hpf Assessment and Plan Assessment: 1. Acute kidney injury secondary to urine retention and hypotension, currently improved. Patient has an indwelling Webb catheter 2. Volume overload currently improved 3. Acute CHF with preserved ejection fraction 3. Anemia with hemoglobin down to 8.5 g/dL from 9.7 on initial admission. Iron saturation was low at 6.5 and patient is currently receiving IV iron. No active bleeding noted. Plan: Check labs from today Continue with Webb catheter Encourage increased oral intake Continue with current dose of Lasix.
[2022-08-11] MEDS: SYMBICORT 80-4.5 MCG INHALER INHALATION SCH ×2 (09:02→16:54)
[2022-08-11] MEDS: SODIUM FERRIC GLUCONAT-SUCROSE 125 MG in SODIUM CHLORIDE 0.9% 100 ML IVPB SCH (09:29)
[2022-08-11] MEDS: CLOPIDOGREL 75 MG TAB PO SCH (09:30)
[2022-08-11] MEDS: DAPAGLIFLOZIN PROPANEDIOL 10 MG TABLET PO SCH (09:30)
[2022-08-11] MEDS: CHOLECALCIFEROL 25 MCG (1000 IU) TABLET PO SCH (09:30)
[2022-08-11] MEDS: ASPIRIN 81 MG PO SCH (09:30)
[2022-08-11] MEDS: CALCIUM CARB-VIT D 500 MG-5 MCG TAB PO SCH (09:30)
[2022-08-11] MEDS: METOPROLOL SUCCINATE (ER) 25 MG TAB.ER.24H PO SCH (09:30)
[2022-08-11] MEDS: FLUoxetine HCL 20 MG CAP PO SCH ×2 (09:30→20:36)
[2022-08-11] MEDS: PANTOPRAZOLE 40 MG/10 ML VIAL IV SCH (09:30)
[2022-08-11] MEDS: FUROSEMIDE 80 MG TAB PO SCH ×2 (09:30→15:44)
--- NOTE | 2022-08-11 10:14 | P.PN ---
Subjective Progress Note Date: 08/11/22 HISTORY OF PRESENT ILLNESS: This is an 81-year-old female who presented to the hospital chief complaint of shortness of breath. Patient was found to be in acute congestive heart failure and was started on IV Lasix. Patient is also being evaluated for her anemia. Patient examined this morning at the bedside. Patient remains confused this morning. She denies chest pain or pressure. She denies shortness of breath. Telemetry reveals atrial fibrillation with controlled ventricular rate. Vital signs are stable. Blood pressure has improved from yesterday. 08/10/2022 Patient examined this morning to bedside. Patient remains confused. There is a radiation safety officer at the bedside. Patient denies chest pain or pressure. She denies shortness of breath. She reports inability to get comfortable in bed and did not sleep last night. Telemetry reveals sinus mechanism. Blood pressure is stable with a recent reading of 106/51. Patient remains on IV Lasix. Echocardiogram completed revealing ejection fraction 50-55%, severe left and right ventricular dilatation, bioprosthetic aortic valve, increased pressure gradient noted throughout the valve, trace prosthetic aortic valve regurgitation, moderate tricuspid regurgitation, and moderate pulmonary hypertension. 08/11 Patient remains confused with a radiation safety officer at the bedside. Patient denies chest pain or shortness of breath. She has no lower extremity edema. Heart rate is in the 70s, telemetry is sinus rhythm, blood pressure 106/71. Urine output from yesterday was 1250. PHYSICAL EXAM: VITAL SIGNS: Reviewed. GENERAL: Well-developed in no acute distress. NECK: Supple. No JVD or thyromegaly LUNGS: Respirations even and unlabored. Lungs diminished to auscultation bilaterally. HEART: Regular rate and rhythm. S1 and S2 heard. Systolic murmur noted EXTREMITIES: No clubbing or cyanosis. Peripheral pulses intact. No lower extremity edema ASSESSMENT: Shortness of breath Acute exacerbation of congestive heart failure with preserved EF Paroxysmal atrial fibrillation History of aortic valve replacement History of Watchman device Hypertension History of COPD History of CVA Diabetes PLAN: Continue patient on home dose of Lasix 80 mg twice daily Daily weights, accurate I&O, and monitoring of kidney function Continue additional cardiac medications Further recommendations pending patient course Nurse practitioner note has been reviewed by physician. Signing provider agrees with the documented findings, assessment, and plan of care. Objective - Vital Signs Vital signs: Vital Signs Temp 98 F 08/11/22 04:00 Pulse 77 08/11/22 04:00 Resp 16 08/11/22 04:00 BP 106/71 08/11/22 04:00 Pulse Ox 100 08/11/22 04:00 FiO2 Intake & Output 08/10/22 08/11/22 08/11/22 18:59 06:59 18:59 Intake Total 180 Output Total 350 900 Balance -350 -900 180 Weight 76.5 kg Intake: Oral 180 Output: Urine 350 900 Other: Voiding Method Indwelling Catheter Indwelling Catheter - Labs CBC & Chem 7: 08/10/22 06:28 08/10/22 06:28 Labs: Abnormal Lab Results - Last 24 Hours (Table) 08/10/22 08/10/22 08/10/22 Range/Units 11:45 16:45 20:09 POC Glucose (mg/dL) 159 H 153 H 190 H (70-110) mg/dL Urine Glucose (UA) (Negative) Urine Ketones (Negative) Ur Leukocyte Esterase (Negative) Hyaline Casts (0-2) /lpf Urine Mucus (None) /hpf 08/11/22 08/11/22 Range/Units 00:05 06:03 POC Glucose (mg/dL) 141 H (70-110) mg/dL Urine Glucose (UA) 3+ H (Negative) Urine Ketones 1+ H (Negative) Ur Leukocyte Esterase Trace H (Negative) Hyaline Casts 16 H (0-2) /lpf Urine Mucus Rare H (None) /hpf
[2022-08-11 10:21] LABS: African American GFR (CKD) 60 (>60 ml/min/1.73 sqM); Anion Gap 10 mmol/L; Blood Urea Nitrogen 54 mg/dL (7-17); Calcium 8.7 mg/dL (8.4-10.2); Carbon Dioxide 31 mmol/L (22-30); Chloride 91 mmol/L (98-107); Glucose 150 mg/dL (74-99); Non-African American GFR(CKD) 52 (>60 ml/min/1.73 sqM); Potassium 3.2 mmol/L (3.5-5.1); Sodium 132 mmol/L (137-145)
[2022-08-11] MEDS ORDERED: Potassium Replacement Protocol 1 EACH MISC MISCELLANE PRN (10:22)
[2022-08-11] MEDS ORDERED: ALPRAZolam 0.25 MG TAB PO PRN (10:33)
[2022-08-11] MEDS ORDERED: POTASSIUM CHLORIDE ER 20 MEQ TAB.ER PO SCH ×2 (11:00→12:00)
--- NOTE | 2022-08-11 11:02 | US ---
EXAMINATION TYPE: US kidneys/renal and bladder DATE OF EXAM: 08/11/2022 Exam done portable COMPARISON: NONE CLINICAL INDICATION: Female, 81 years old with history of severiano/ retention; EXAM MEASUREMENTS: Right Kidney: 9.1 x 4.8 x 5.0 cm Left Kidney: 9.6 x 5.0 x 4.7 cm Right Kidney: 1.9cm hypoechoic area lateral superior pole, inferior pole limited by overlying bowel g as Left Kidney: multiple small hypoechoic areas with largest measuring 2.0cm medial superior pole Bladder: not distended, murray catheter IMPRESSION: 1. Bilateral renal cysts
[2022-08-11 11:40] LABS: Glucose,Whole Blood 168 mg/dL (70-110)
[2022-08-11] MEDS: POTASSIUM BICARBONATE/CIT AC 20 MEQ TABLET.EFF PO SCH ×2 (12:04→14:58)
[2022-08-11] MEDS: AZELASTINE 137MCG/SPRAY EA NOSTRIL SCH ×2 (12:05→20:37)
--- NOTE | 2022-08-11 14:04 | P.PN ---
Subjective Progress Note Date: 08/11/22 81-year-old pleasant female was brought in because of generalized weakness. Patient is found to be in congestive heart failure, patient does have some shortness of breath patient uses 3 L of oxygen for COPD, presently on 4 L and patient denied any fever chills patient any cough. Patient denied any orthopnea or paroxysmal nocturnal dyspnea. Patient does have leukocytosis. There was a concern about a GI bleed patient does have problems with daily because of INR supplementation. Patient the family denied any obvious GI bleed clinically although occasionally patient will have blood in the stools secondary to hemorrhoids. Patient hemoglobin is 9.7 patient is a monitor. Obesity transfusion as had hemoglobin at outside hospital was around 7. Patient had adhesions in the past for low hemoglobin. Patient serum iron is 63 and ferritin is 49. Patient does have bilateral pedal edema. Patient does have history of atrial fibrillation for which patient underwent a watchman procedure anticoagulation patient is also on 2 antiplatelet therapy had a cardiac catheterization unsure when her stents were placed. Patient does take 80 mg twice a day of Lasix along with as needed weekly metolazone. 08/09/2022 Patient is seen and evaluated in follow-up today sleeping and minimally arousable although when aroused patient is confused. Patient recently received Haldol and is on as needed Seroquel at night although per his nursing staff did not help a bit. Patient had been restless and thrashing out and about pulling on IVs and hitting at staff and currently with a sitter at the bedside for saf ety. Family reports she does experience hospital acquired delirium. Patient is maintained on IV Lasix with cardiology following and GI had evaluated the patient and hematology is consulted and pending and will consult nephrology as patient is having worsening kidney functions and unsure if patient has chronic kidney disease. Patient does have history of anemia noted on the chart and hematology undergoing further workup. Patient will receive IV iron. Hemoglobin is down from yesterday of 9.7 and is currently 8.2 today with no active bleeding noted. Sodium is 133 with a potassium of 3.8, BUN is 62 and creatinine is 1.35 and blood sugars are elevated and patient does have history of diabetes. Recommend frequent reorientation with family and using scheduled Seroquel. Patient does chronically wear oxygen outpatient and of note on exam patient is a mouth breathe readings per nursing staff although oxygen saturations reevaluated and oxygen saturations are 90-94% on 4-5 L via nasal cannula. 08/10/2022 Patient evaluated today resting in bed just to have acute confusion however patient is responsive and reporting no acute complaints at this time. Cardiology following and has transitioned patient to oral Lasix today. Creatinine has mproved and down to 1.12. Continues on 4L of oxygen. Echocardiogram was a technically difficult study LV systolic function is fairly well preserved with moderate concentric LVH. 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 08/11/2022 Patient is evaluated today resting in bed with family at the bedside. Mentation is markedly improved today is alert x 2-3 and conversing appropriately. Family feels her mentation is near baseline. Creatinine has improved down to 1.01 today, patient continues with IDC in place for the urinary retention. Renal ultrasound reveals bilateral renal cysts. Sodium 132 today potassium of 3.2. Lasix has been changed to oral BID. Remains on seroquel at HS and haldol has b een discontinued. binder sorter not at bedside for the last 24 hours. 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 Review of Systems Constitutional: Denied any fatigue denied any fever. Cardio vascular: denied any chest pain, palpitations Gastrointestinal: denied any nausea, vomiting, diarrhea Pulmonary: Denied any shortness of breath cough Neurologic denied any new focal deficits All inpatient medications were reviewed and appropriate changes in these medications as dictated in the interval history and assessment and plan. PHYSICAL EXAMINATION: GENERAL: The patient is alert and oriented x2-3, resting and has just received Haldol. Well developed, well nourished. Obese. HEENT: Pupils are round and equally reacting to light. EOMI. No scleral icterus. No conjunctival pallor. Normocephalic, atraumatic. No pharyngeal erythema. No thyromegaly. CARDIOVASCULAR: S1 and S2 present. No murmurs, rubs, or gallops. PULMONARY: Chest is clear to auscultation no ronchi or crackles noted. ABDOMEN: Soft, obese. nontender, nondistended, normoactive bowel sounds. No palpable organomegaly. MUSCULOSKELETAL: No joint swelling or deformity. EXTREMITIES: No cyanosis, clubbing, peripheral edema resolved. NEUROLOGICAL: Gross neurological examination did not reveal any focal deficits. Generalized weakness. SKIN: No rashes. Assessment: -Acute hypoxic respiratory failure secondary to CHF exacerbation -Generalized weakness medical deconditioning -Altered mental status combination of hospital delirium and metabolic e ncephalopathy from SLOAN, resolving. -Congestive heart failure diastolic dysfunction transitioned to oral Lasix -Iron deficiency anemia: No evidence of acute GI bleed, received IV ferrlecit now on oral iron. Continue on aspirin/plavix. -Hypervolemic hyponatremia secondary to heart failure -Acute kidney injury due to urinary retention and hypotension resolving -Urinary retention with indwelling catheter in place -Leukocytosis: Reactive without any clear evidence of infection -Atrial fibrillation paroxysmal patient has a watchman procedure -Type 2 diabetes mellitus: Hold off on metformin, continue sliding scale insulin -Coronary artery disease -COPD without any acute exacerbation patient has chronic hypercapnic respiratory failure and wears oxygen outpatient -History of DVT in the past presently not on any anticoagulation as mentioned above -Sleep apnea -No code DVT prophylaxis: Subcutaneous heparin GI prophylaxis: protonix Plan: -Nephrology consultation pt is transitioned to oral lasix. -Patient does wear oxygen outpatient and currently maintained on 4-5 L. Patient is clearly a mouth breather on exam -Patient was seen and evaluated by GI with no evidence of a GI bleed and brad grimm had an EGD in the outpatient setting in [facility] which reveals no - evidence of bleeding. Colonoscopy was offered here with GI and patient refused. -binder sorter discontinued, haldol discontinued continues on seroquel at HS. Mentation near baseline. -Continue with IDC and consider voiding trial tomorrow -Recommend frequent reorientation with windows and blinds open during the day with family members present as much as possible -Follow up Labs in AM -Check lactic acid f/u from outside hospital it was 5.1 prior to coming here. Possibly due to metformin which is currently held at this time. -D/C to [facility] next 24 to 48 hours. The impression and plan of care has been dictated by Irene Jaimes, Nurse Practitioner as directed. Dr. Rafat MD I have performed a history and physical examination and medical decision making of this patient, discussed the same with the dictator, and agree with the dictators assessment and plan as written, documented as a scribe. Based on total visit time, I have performed more than 50% of this visit. Objective - Vital Signs Vital signs: Vital Signs Temp 98 F 08/11/22 04:00 Pulse 77 08/11/22 04:00 Resp 16 08/11/22 04:00 BP 106/71 08/11/22 04:00 Pulse Ox 93 L 08/11/22 09:06 FiO2 Intake & Output 08/10/22 08/11/22 08/11/22 18:59 06:59 18:59 Intake Total 180 Output Total 350 900 Balance -350 -900 180 Weight 76.5 kg Intake: Oral 180 Output: Urine 350 900 Other: Voiding Method Indwelling Catheter Indwelling Catheter - Labs CBC & Chem 7: 08/10/22 06:28 08/11/22 09:34 Labs: Abnormal Lab Results - Last 24 Hours (Table) 08/10/22 08/10/22 08/10/22 Range/Units 11:45 16:45 20:09 POC Glucose (mg/dL) 159 H 153 H 190 H (70-110) mg/dL Urine Glucose (UA) (Negative) Urine Ketones (Negative) Ur Leukocyte Esterase (Negative) Hyaline Casts (0-2) /lpf Urine Mucus (None) /hpf 08/11/22 08/11/22 Range/Units 00:05 06:03 POC Glucose (mg/dL) 141 H (70-110) mg/dL Urine Glucose (UA) 3+ H (Negative) Urine Ketones 1+ H (Negative) Ur Leukocyte Esterase Trace H (Negative) Hyaline Casts 16 H (0-2) /lpf Urine Mucus Rare H (None) /hpf Assessment and Plan Time with Patient: Less than 30
[2022-08-11] MEDS: ACETAMINOPHEN TAB 325 MG TAB PO PRN (14:58)
[2022-08-11] MEDS ORDERED: IPRATROPIUM-ALBUTEROL 3 ML NEB INHALATION PRN (15:57)
[2022-08-11] MEDS ORDERED: guaiFENesin 600 MG TABLET.ER PO PRN (15:58)
[2022-08-11 16:28] LABS: Glucose,Whole Blood 202 mg/dL (70-110)
[2022-08-11] MEDS: ALPRAZolam 0.25 MG TAB PO PRN (18:13)
[2022-08-11] MEDS ORDERED: ALPRAZolam 0.25 MG TAB PO SCH (18:15)
[2022-08-11 20:15] LABS: Glucose,Whole Blood 170 mg/dL (70-110)
[2022-08-11] MEDS: QUEtiapine 25 MG TAB PO SCH (20:36)
[2022-08-11] MEDS: ATORVASTATIN 20 MG TAB PO SCH (20:36)
[2022-08-11] MEDS: INSULIN DETEMIR (LEVEMIR) 100 UNIT/ML SYR SQ SCH (20:37)
[2022-08-12 06:08] LABS: Glucose,Whole Blood 158 mg/dL (70-110)
[2022-08-12] MEDS: INSULIN ASPART (NovoLOG) 100 UNIT/ML VIAL SQ SCH ×7 (06:24→20:32)
[2022-08-12] MEDS: SYMBICORT 80-4.5 MCG INHALER INHALATION SCH ×2 (08:22→20:40)
[2022-08-12] MEDS: FLUoxetine HCL 20 MG CAP PO SCH ×2 (08:35→20:14)
[2022-08-12] MEDS: CLOPIDOGREL 75 MG TAB PO SCH (08:35)
[2022-08-12] MEDS: ASPIRIN 81 MG PO SCH (08:35)
[2022-08-12] MEDS: CALCIUM CARB-VIT D 500 MG-5 MCG TAB PO SCH (08:35)
[2022-08-12] MEDS: DOCUSATE 100 MG CAP PO SCH (08:36)
[2022-08-12] MEDS: METOPROLOL SUCCINATE (ER) 25 MG TAB.ER.24H PO SCH (08:36)
[2022-08-12] MEDS: FUROSEMIDE 80 MG TAB PO SCH ×2 (08:36→16:47)
[2022-08-12] MEDS: DAPAGLIFLOZIN PROPANEDIOL 10 MG TABLET PO SCH (08:36)
[2022-08-12] MEDS: PANTOPRAZOLE 40 MG/10 ML VIAL IV SCH (08:36)
[2022-08-12] MEDS: CHOLECALCIFEROL 25 MCG (1000 IU) TABLET PO SCH (08:36)
[2022-08-12] MEDS: AZELASTINE 137MCG/SPRAY EA NOSTRIL SCH ×2 (08:37→20:15)
[2022-08-12] MEDS: SODIUM FERRIC GLUCONAT-SUCROSE 125 MG in SODIUM CHLORIDE 0.9% 100 ML IVPB SCH (08:39)
[2022-08-12 09:49] LABS: African American GFR (CKD) 51 (>60 ml/min/1.73 sqM); Anion Gap 7 mmol/L; Blood Urea Nitrogen 44 mg/dL (7-17); Calcium 8.4 mg/dL (8.4-10.2); Carbon Dioxide 37 mmol/L (22-30); Chloride 90 mmol/L (98-107); Glucose 236 mg/dL (74-99); Non-African American GFR(CKD) 45 (>60 ml/min/1.73 sqM); Potassium 3.6 mmol/L (3.5-5.1); Sodium 134 mmol/L (137-145)
[2022-08-12 09:51] LABS: Anisocytosis Moderate; Basophils % (A) 0 %; Eosinophils # (A) 0.3 k/uL (0-0.7); Eosinophils % (A) 3 %; HCT 28.5 % (34.0-46.0); HGB 8.4 gm/dL (11.4-16.0); Hypochromasia Marked; Lymphocytes % (A) 13 %; MCH 26.3 pg (25.0-35.0); MCHC 29.5 g/dL (31.0-37.0); MCV 89.3 fL (80.0-100.0); Macrocytosis Slight; Mean Platelet Volume 7.7; Monocytes # (A) 0.7 k/uL (0-1.0); Monocytes % (A) 8 %; Neutrophils # (A) 5.7 k/uL (1.3-7.7); Neutrophils % (A) 73 %; Platelet Count 302 k/uL (150-450); Poikilocytosis Moderate; RBC 3.19 m/uL (3.80-5.40); WBC 7.8 k/uL (3.8-10.6)
--- NOTE | 2022-08-12 09:56 | P.PN ---
Subjective Progress Note Date: 08/12/22 HISTORY OF PRESENT ILLNESS: This is an 81-year-old female who presented to the hospital chief complaint of shortness of breath. Patient was found to be in acute congestive heart failure and was started on IV Lasix. Patient is also being evaluated for her anemia. Patient examined this morning at the bedside. Patient remains confused this morning. She denies chest pain or pressure. She denies shortness of breath. Telemetry reveals atrial fibrillation with controlled ventricular rate. Vital signs are stable. Blood pressure has improved from yesterday. 08/10/2022 Patient examined this morning to bedside. Patient remains confused. There is a corporate safety director at the bedside. Patient denies chest pain or pressure. She denies shortness of breath. She reports inability to get comfortable in bed and did not sleep last night. Telemetry reveals sinus mechanism. Blood pressure is stable with a recent reading of 106/51. Patient remains on IV Lasix. Echocardiogram completed revealing ejection fraction 50-55%, severe left and right ventricular dilatation, bioprosthetic aortic valve, increased pressure gradient noted throughout the valve, trace prosthetic aortic valve regurgitation, moderate tricuspid regurgitation, and moderate pulmonary hypertension. 08/11 Patient remains confused with a corporate safety director at the bedside. Patient denies chest pain or shortness of breath. She has no lower extremity edema. Heart rate is in the 70s, telemetry is sinus rhythm, blood pressure 106/71. Urine output from yesterday was 1250. 08/12 Patient has less confusion today. She has been continued on oral Lasix 80 mg twice daily. She is currently on oxygen at 3 L nasal cannula, heart rate is running in the 60s and 70s, blood pressure 102/61. Repeat blood work reveals WBC 7.8, hemoglobin 8.4. Sodium 134, potassium 3.6, BUN 44 and creatinine 1.15. Renal ultrasound reveals bilateral renal cysts. PHYSICAL EXAM: VITAL SIGNS: Reviewed. GENERAL: Well-developed in no acute distress. NECK: Supple. No JVD or thyromegaly LUNGS: Respirations even and unlabored. Lungs diminished to auscultation bilaterally. HEART: Regular rate and rhythm. S1 and S2 heard. Systolic murmur noted EXTREMITIES: No clubbing or cyanosis. Peripheral pulses intact. No lower extremity edema ASSESSMENT: Shortness of breath Acute exacerbation of congestive heart failure with preserved EF Paroxysmal atrial fibrillation History of aortic valve replacement History of Watchman device Hypertension History of COPD History of CVA Diabetes PLAN: Continue patient on home dose of Lasix 80 mg twice daily Daily weights, accurate I&O, and monitoring of kidney function Continue additional cardiac medications Further recommendations pending patient course Nurse practitioner note has been reviewed by physician. Signing provider agrees with the documented findings, assessment, and plan of care. Objective - Vital Signs Vital signs: Vital Signs Temp 98.2 F 08/11/22 20:00 Pulse 69 08/12/22 04:00 Resp 16 08/12/22 04:00 BP 118/75 08/12/22 04:00 Pulse Ox 100 08/12/22 04:00 FiO2 Intake & Output 08/11/22 08/12/22 08/12/22 18:59 06:59 18:59 Intake Total 180 Output Total 600 875 Balance -420 -875 Intake: Oral 180 Output: Urine 600 875 Other: Voiding Method Indwelling Catheter Indwelling Catheter - Labs CBC & Chem 7: 08/12/22 08:18 08/12/22 08:18 Labs: Abnormal Lab Results - Last 24 Hours (Table) 08/11/22 08/11/22 08/11/22 Range/Units 09:34 11:39 16:26 Sodium 132 L (137-145) mmol/L Potassium 3.2 L (3.5-5.1) mmol/L Chloride 91 L (98-107) mmol/L Carbon Dioxide 31 H (22-30) mmol/L BUN 54 H (7-17) mg/dL Glucose 150 H (74-99) mg/dL POC Glucose (mg/dL) 168 H 202 H (70-110) mg/dL 08/11/22 08/12/22 Range/Units 20:14 06:04 Sodium (137-145) mmol/L Potassium (3.5-5.1) mmol/L Chloride (98-107) mmol/L Carbon Dioxide (22-30) mmol/L BUN (7-17) mg/dL Glucose (74-99) mg/dL POC Glucose (mg/dL) 170 H 158 H (70-110) mg/dL
--- NOTE | 2022-08-12 10:45 | P.PN ---
Subjective Patient is seen for follow-up for acute kidney injury. Patient is currently being diuresed for volume overload. Lasix has being changed to oral. Serum creatinine 1.1 Good urine output. No sitter today. No significant complaints today. Objective - Vital Signs Vital signs: Vital Signs Temp 97.9 F 08/12/22 08:31 Pulse 77 08/12/22 08:31 Resp 16 08/12/22 08:31 BP 102/61 08/12/22 08:31 Pulse Ox 95 08/12/22 08:31 FiO2 Intake & Output 08/11/22 08/12/22 08/12/22 18:59 06:59 18:59 Intake Total 180 Output Total 600 875 Balance -420 -875 Intake: Oral 180 Output: Urine 600 875 Other: Voiding Method Indwelling Catheter Indwelling Catheter - Exam Patient is awake, comfortable, no acute distress Examination of the heart S1 and S2 Examination of the lungs bilateral breath sounds are heard no crackles or wheezing is heard Abdomen is soft nontender Examination lower extremity shows no significant edema CHEMICAL WORKER exam grossly intact - Labs CBC & Chem 7: 08/12/22 08:18 08/12/22 08:18 Labs: Abnormal Lab Results - Last 24 Hours (Table) 08/10/22 08/11/22 08/11/22 Range/Units 11:10 11:39 16:26 RBC (3.80-5.40) m/uL Hgb (11.4-16.0) gm/dL Hct (34.0-46.0) % MCHC (31.0-37.0) g/dL RDW (11.5-15.5) % Sodium (137-145) mmol/L Chloride (98-107) mmol/L Carbon Dioxide (22-30) mmol/L BUN (7-17) mg/dL Creatinine (0.52-1.04) mg/dL Glucose (74-99) mg/dL POC Glucose (mg/dL) 168 H 202 H (70-110) mg/dL Erythropoietin 660.08 H (2.00-30.00) mIU/mL 08/11/22 08/12/22 08/12/22 Range/Units 20:14 06:04 08:18 RBC 3.19 L (3.80-5.40) m/uL Hgb 8.4 L (11.4-16.0) gm/dL Hct 28.5 L (34.0-46.0) % MCHC 29.5 L (31.0-37.0) g/dL RDW 22.0 H (11.5-15.5) % Sodium (137-145) mmol/L Chloride (98-107) mmol/L Carbon Dioxide (22-30) mmol/L BUN (7-17) mg/dL Creatinine (0.52-1.04) mg/dL Glucose (74-99) mg/dL POC Glucose (mg/dL) 170 H 158 H (70-110) mg/dL Erythropoietin (2.00-30.00) mIU/mL 08/12/22 Range/Units 08:18 RBC (3.80-5.40) m/uL Hgb (11.4-16.0) gm/dL Hct (34.0-46.0) % MCHC (31.0-37.0) g/dL RDW (11.5-15.5) % Sodium 134 L (137-145) mmol/L Chloride 90 L (98-107) mmol/L Carbon Dioxide 37 H (22-30) mmol/L BUN 44 H (7-17) mg/dL Creatinine 1.15 H (0.52-1.04) mg/dL Glucose 236 H (74-99) mg/dL POC Glucose (mg/dL) (70-110) mg/dL Erythropoietin (2.00-30.00) mIU/mL Assessment and Plan Assessment: 1. Acute kidney injury secondary to urine retention and hypotension, currently improved. Patient has an indwelling Webb catheter 2. Volume overload currently improved 3. Acute CHF with preserved ejection fraction 3. Anemia with hemoglobin down to 8.5 g/dL from 9.7 on initial admission. Iron saturation was low at 6.5% and patient is currently receiving IV iron. No active bleeding noted. Plan: Continue with Webb catheter Encourage increased oral intake Continue with current dose of Lasix.
--- NOTE | 2022-08-12 10:54 | XR ---
EXAMINATION TYPE: XR chest 1V portable DATE OF EXAM: 08/12/2022 HISTORY: Shortness of breath. COMPARISON: 08/08/2022 TECHNIQUE: Single view of the chest is submitted. FINDINGS: Demonstrated are scattered senescent parenchymal change. Right infrahilar infiltrate or atelectasis. Persistent patchy density right suprahilar region. Overal l improved features of congestive failure. The heart is stable. Hilar and mediastinal structures are within normal limits. Degenerative changes are seen of the dorsal spine. IMPRESSION: 1. Right infrahilar infiltrate or atelectasis. Persistent patchy density right suprahilar region. Ov erall improved features of congestive failure.
[2022-08-12 11:20] LABS: Glucose,Whole Blood 248 mg/dL (70-110)
[2022-08-12 13:02] VITALS: BMI 30.8
--- NOTE | 2022-08-12 13:37 | P.PN ---
Subjective Progress Note Date: 08/12/22 81-year-old pleasant female was brought in because of generalized weakness. Patient is found to be in congestive heart failure, patient does have some shortness of breath patient uses 3 L of oxygen for COPD, presently on 4 L and patient denied any fever chills patient any cough. Patient denied any orthopnea or paroxysmal nocturnal dyspnea. Patient does have leukocytosis. There was a concern about a GI bleed patient does have problems with daily because of INR supplementation. Patient the family denied any obvious GI bleed clinically although occasionally patient will have blood in the stools secondary to hemorrhoids. Patient hemoglobin is 9.7 patient is a monitor. Obesity transfusion as had hemoglobin at outside hospital was around 7. Patient had adhesions in the past for low hemoglobin. Patient serum iron is 63 and ferritin is 49. Patient does have bilateral pedal edema. Patient does have history of atrial fibrillation for which patient underwent a watchman procedure anticoagul ation patient is also on 2 antiplatelet therapy had a cardiac catheterization unsure when her stents were placed. Patient does take 80 mg twice a day of Lasix along with as needed weekly metolazone. 08/09/2022 Patient is seen and evaluated in follow-up today sleeping and minimally arousable although when aroused patient is confused. Patient recently received Haldol and is on as needed Seroquel at night although per his nursing staff did not help a bit. Patient had been restless and thrashing out and about pulling on IVs and hitting at staff and currently with a sitter at the bedside for s afety. Family reports she does experience hospital acquired delirium. Patient is maintained on IV Lasix with cardiology following and GI had evaluated the patient and hematology is consulted and pending and will consult nephrology as patient is having worsening kidney functions and unsure if patient has chronic kidney disease. Patient does have history of anemia noted on the chart and hematology undergoing further workup. Patient will receive IV iron. Hemoglobin is down from yesterday of 9.7 and is currently 8.2 today with no active bleeding noted. Sodium is 133 with a potassium of 3.8, BUN is 62 and creatinine is 1.35 and blood sugars are elevated and patient does have history of diabetes. Recommend frequent reorientation with family and using scheduled Seroquel. Patient does chronically wear oxygen outpatient and of note on exam patient is a mouth breathe readings per nursing staff although oxygen saturations reevaluated and oxygen saturations are 90-94% on 4-5 L via nasal cannula. 08/10/2022 Patient evaluated today resting in bed just to have acute confusion however patient is responsive and reporting no acute complaints at this time. Cardiology following and has transitioned patient to oral Lasix today. Creatinine has mproved and down to 1.12. Continues on 4L of oxygen. Echocardiogram was a technically difficult study LV systolic function is fairly well preserved with moderate concentric LVH. 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 08/11/2022 Patient is evaluated today resting in bed with family at the bedside. Mentation is markedly improved today is alert x 2-3 and conversing appropriately. Family feels her mentation is near baseline. Creatinine has improved down to 1.01 today, patient continues with IDC in place for the urinary retention. Renal ultrasound reveals bilateral renal cysts. Sodium 132 today potassium of 3.2. Lasix has been changed to oral BID. Remains on seroquel at HS and haldol has been discontinued. functional architect not at bedside for the last 24 hours. 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 08/12/2022 Patient is seen and evaluated in follow-up with daughter at the bedside with significant improvement in mentation. Patient is up and alert currently eating. Plan is to return to [facility] advanced case management following attempting to contact although most likely not accepting admissions secondary to the holiday. Patient is currently afebrile with nephrology and cardiology fol lowing. Patient continues with indwelling Webb catheter. Patient with significant weakness awaiting physical therapy evaluation. Patient is afebrile denies chest pain or worsening shortness of breath. No reports of nausea or vomiting noted in patient is tolerating diet. Recommend continue Seroquel at night. Frequent reorientation during the day with shades open and family present. Review of Systems Constitutional: Denied any fatigue denied any fever. Cardio vascular: denied any chest pain, palpitations Gastrointestinal: denied any nausea, vomiting, diarrhea Pulmonary: Denied any shortness of breath cough Neurologic denied any new focal deficits, reports generalized weakness and has not gotten up out of the bed with PT yet All inpatient medications were reviewed and appropriate changes in these medications as dictated in the interval history and assessment and plan. PHYSICAL EXAMINATION: GENERAL: The patient is alert and oriented x3, much more awake and alert with conversation. Well developed, well nourished. Obese. HEENT: Pupils are round and equally reacting to light. EOMI. No scleral icterus. No conjunctival pallor. Normocephalic, atraumatic. No pharyngeal erythema. No thyromegaly. CARDIOVASCULAR: S1 and S2 present. No murmurs, rubs, or gallops. PULMONARY: Diminished breath sounds bilaterally with some scattered rhonchi noted. ABDOMEN: Soft, obese. nontender, nondistended, normoactive bowel sounds. No palpable organomegaly. MUSCULOSKELETAL: No joint swelling or deformity. EXTREMITIES: No cyanosis, clubbing, peripheral edema resolved. NEUROLOGICAL: Gross neurological examination did not reveal any focal deficits. Generalized weakness. SKIN: No rashes. Assessment: -Acute hypoxic respiratory failure secondary to acute on chronic CHF diastolic dysfunction, acute exacerbation -Generalized weakness medical deconditioning -Altered mental status combination of hospital delirium and metabolic encephalopathy from SLOAN, resolving. -Iron deficiency anemia: No evidence of acute GI bleed, received IV ferrlecit now on oral iron. Continue on aspirin/plavix. -Hypervolemic hyponatremia secondary to heart failure -Acute kidney injury due to urinary retention and hypotension resolving -Urinary retention with indwelling catheter in place -Leukocytosis: Reactive without any clear evidence of infection, improved -Atrial fibrillation paroxysmal patient has a watchman procedure -Type 2 diabetes mellitus: Hold off on metformin, continue sliding scale ins ulin -Coronary artery disease -COPD without any acute exacerbation patient has chronic hypercapnic respiratory failure and wears oxygen outpatient -History of DVT in the past presently not on any anticoagulation as mentioned above -Sleep apnea -DVT prophylaxis: Subcutaneous heparin -GI prophylaxis: protonix -No code Plan: -Nephrology and cardiology following and patient has been transitioned oral Lasix. Recommend follow-up labs -Patient does wear oxygen outpatient and currently maintained on 4-5 L. Patient is clearly a mouth breather on exam -Patient was seen and evaluated by GI with no evidence of a GI bleed and recently had an EGD in the outpatient setting in [facility] which reveals no - evidence of bleeding. Colonoscopy was offered here with GI and patient refused. -Recommend to continue on Seroquel at night and mentation has improved. Recommend frequent reorientation with family members at bedside and lites and windows open during the day -Continue with IDC and consider voiding trial tomorrow -Follow up Labs in AM -We'll continue monitoring Accu-Cheks before meals and at bedtime and will continue to hold metformin -D/C to [facility] possibly on Friday as case management is following in the facility has not returned a call most likely closed for admi ssions secondary to the holiday tomorrow The impression and plan of care has been dictated by Cici Jeong, Nurse Practitioner as directed. Dr. Max MD I have performed a history and examination and MDM of this patient, discussed the same with the dictator, and agree with the dictator's assessment and plan as written ,documented as a scribe. Based on total visit time, I have performed more than 50% of the visit. Objective - Vital Signs Vital signs: Vital Signs Temp 98.7 F 08/12/22 12:11 Pulse 77 08/12/22 12:11 Resp 17 08/12/22 12:11 BP 113/44 08/12/22 12:11 Pulse Ox 95 08/12/22 12:11 FiO2 Intake & Output 08/11/22 08/12/22 08/12/22 18:59 06:59 18:59 Intake Total 180 118 Output Total 600 875 725 Balance -420 -624 -409 Weight 76.5 kg Intake: Oral 180 118 Output: Urine 600 875 725 Other: Voiding Method Indwelling Catheter Indwelling Catheter - Labs CBC & Chem 7: 08/12/22 08:18 08/12/22 08:18 Labs: Abnormal Lab Results - Last 24 Hours (Table) 08/10/22 08/11/22 08/11/22 Range/Units 11:10 16:26 20:14 RBC (3.80-5.40) m/uL Hgb (11.4-16.0) gm/dL Hct (34.0-46.0) % MCHC (31.0-37.0) g/dL RDW (11.5-15.5) % Sodium (137-145) mmol/L Chloride (98-107) mmol/L Carbon Dioxide (22-30) mmol/L BUN (7-17) mg/dL Creatinine (0.52-1.04) mg/dL Glucose (74-99) mg/dL POC Glucose (mg/dL) 202 H 170 H (70-110) mg/dL Erythropoietin 660.08 H (2.00-30.00) mIU/mL 08/12/22 08/12/22 08/12/22 Range/Units 06:04 08:18 08:18 RBC 3.19 L (3.80-5.40) m/uL Hgb 8.4 L (11.4-16.0) gm/dL Hct 28.5 L (34.0-46.0) % MCHC 29.5 L (31.0-37.0) g/dL RDW 22.0 H (11.5-15.5) % Sodium 134 L (137-145) mmol/L Chloride 90 L (98-107) mmol/L Carbon Dioxide 37 H (22-30) mmol/L BUN 44 H (7-17) mg/dL Creatinine 1.15 H (0.52-1.04) mg/dL Glucose 236 H (74-99) mg/dL POC Glucose (mg/dL) 158 H (70-110) mg/dL Erythropoietin (2.00-30.00) mIU/mL 08/12/22 Range/Units 11:17 RBC (3.80-5.40) m/uL Hgb (11.4-16.0) gm/dL Hct (34.0-46.0) % MCHC (31.0-37.0) g/dL RDW (11.5-15.5) % Sodium (137-145) mmol/L Chloride (98-107) mmol/L Carbon Dioxide (22-30) mmol/L BUN (7-17) mg/dL Creatinine (0.52-1.04) mg/dL Glucose (74-99) mg/dL POC Glucose (mg/dL) 248 H (70-110) mg/dL Erythropoietin (2.00-30.00) mIU/mL
[2022-08-12] MEDS: ACETAMINOPHEN TAB 325 MG TAB PO PRN (14:26)
[2022-08-12] MEDS: ALPRAZolam 0.25 MG TAB PO PRN ×2 (14:27→20:13)
[2022-08-12 16:01] LABS: Glucose,Whole Blood 304 mg/dL (70-110)
[2022-08-12] MEDS: ATORVASTATIN 20 MG TAB PO SCH (20:13)
[2022-08-12] MEDS: QUEtiapine 25 MG TAB PO SCH (20:14)
[2022-08-12 20:31] LABS: Glucose,Whole Blood 225 mg/dL (70-110)
[2022-08-12] MEDS: INSULIN DETEMIR (LEVEMIR) 100 UNIT/ML SYR SQ SCH (20:32)
[2022-08-13 03:05] LABS: Methylmalonic Acid 3.26 umol/L (<0.40)
[2022-08-13] MEDS: ACETAMINOPHEN TAB 325 MG TAB PO PRN ×2 (03:37→13:13)
[2022-08-13] MEDS: ALPRAZolam 0.25 MG TAB PO PRN (03:37)
[2022-08-13 07:21] LABS: Glucose,Whole Blood 185 mg/dL (70-110)
[2022-08-13] MEDS: SYMBICORT 80-4.5 MCG INHALER INHALATION SCH ×2 (08:31→20:09)
[2022-08-13] MEDS: CLOPIDOGREL 75 MG TAB PO SCH (09:13)
[2022-08-13] MEDS: METOPROLOL SUCCINATE (ER) 25 MG TAB.ER.24H PO SCH (09:13)
[2022-08-13] MEDS: FUROSEMIDE 80 MG TAB PO SCH ×2 (09:13→15:51)
[2022-08-13] MEDS: CALCIUM CARB-VIT D 500 MG-5 MCG TAB PO SCH (09:13)
[2022-08-13] MEDS: PANTOPRAZOLE 40 MG/10 ML VIAL IV SCH (09:13)
[2022-08-13] MEDS: CHOLECALCIFEROL 25 MCG (1000 IU) TABLET PO SCH (09:13)
[2022-08-13] MEDS: ASPIRIN 81 MG PO SCH (09:13)
[2022-08-13] MEDS: FLUoxetine HCL 20 MG CAP PO SCH ×2 (09:13→22:48)
[2022-08-13] MEDS: DOCUSATE 100 MG CAP PO SCH (09:13)
[2022-08-13] MEDS: INSULIN ASPART (NovoLOG) 100 UNIT/ML VIAL SQ SCH ×7 (09:15→22:48)
[2022-08-13] MEDS: DAPAGLIFLOZIN PROPANEDIOL 10 MG TABLET PO SCH (09:18)
[2022-08-13] MEDS: AZELASTINE 137MCG/SPRAY EA NOSTRIL SCH ×2 (09:19→22:49)
--- NOTE | 2022-08-13 10:57 | P.PN ---
Subjective Progress Note Date: 08/13/22 HISTORY OF PRESENT ILLNESS: This is an 81-year-old female who presented to the hospital chief complaint of shortness of breath. Patient was found to be in acute congestive heart failure and was started on IV Lasix. Patient is also being evaluated for her anemia. Patient examined this morning at the bedside. Patient remains confused this morning. She denies chest pain or pressure. She denies shortness of breath. Telemetry reveals atrial fibrillation with controlled ventricular rate. Vital signs are stable. Blood pressure has improved from yesterday. 08/10/2022 Patient examined this morning to bedside. Patient remains confused. There is a clinical safety specialist at the bedside. Patient denies chest pain or pressure. She denies shortness of breath. She reports inability to get comfortable in bed and did not sleep last night. Telemetry reveals sinus mechanism. Blood pressure is stable with a recent reading of 106/51. Patient remains on IV Lasix. Echocardiogram completed revealing ejection fraction 50-55%, severe left and right ventricular dilatation, bioprosthetic aortic valve, increased pressure gradient noted throughout the valve, trace prosthetic aortic valve regurgitation, moderate tricuspid regurgitation, and moderate pulmonary hypertension. 08/13/2022 Patient examined this morning at the bedside. Patient has a clinical safety specialist present. Patient is laying flat in bed and appears comfortable. She denies any shortness of breath. She denies chest pain or pressure. She has been on oral Lasix on 08/10/2022. Vital signs are stable. PHYSICAL EXAM: VITAL SIGNS: Reviewed. GENERAL: Well-developed in no acute distress. NECK: Supple. No JVD or thyromegaly LUNGS: Respirations even and unlabored. Lungs diminished to auscultation bilat erally. HEART: Regular rate and rhythm. S1 and S2 heard. Systolic murmur noted EXTREMITIES: Normal range of motion. No clubbing or cyanosis. Peripheral pulses intact. No lower extremity edema ASSESSMENT: Shortness of breath Acute exacerbation of congestive heart failure with preserved EF Paroxysmal atrial fibrillation History of aortic valve replacement History of Watchman device Hypertension History of COPD History of CVA Diabetes PLAN: Continue current cardiac medications Patient is stable from a cardiac standpoint with no further inpatient recommendations from a cardiology perspective We will sign off. Please reconsult if needed. Nurse practitioner note has been reviewed by physician. Signing provider agrees with the documented findings, assessment, and plan of care. Objective - Vital Signs Vital signs: Vital Signs Temp 97.8 F 08/13/22 07:05 Pulse 79 08/13/22 07:05 Resp 16 08/13/22 07:05 BP 100/58 08/13/22 09:16 Pulse Ox 97 08/13/22 08:31 FiO2 Intake & Output 08/12/22 08/13/22 08/13/22 18:59 06:59 18:59 Intake Total 236 Output Total 1150 350 Balance -914 -350 Weight 76.5 kg Intake: Oral 236 Output: Urine 1150 350 Other: Voiding Method Indwelling Catheter Indwelling Catheter - Labs CBC & Chem 7: 08/12/22 08:18 08/12/22 08:18 Labs: Abnormal Lab Results - Last 24 Hours (Table) 08/09/22 08/12/22 08/12/22 Range/Units 09:31 11:17 15:57 POC Glucose (mg/dL) 248 H 304 H (70-110) mg/dL Methylmalonic Acid 3.26 H (<0.40) umol/L 08/12/22 08/13/22 Range/Units 20:28 07:09 POC Glucose (mg/dL) 225 H 185 H (70-110) mg/dL Methylmalonic Acid (<0.40) umol/L
--- NOTE | 2022-08-13 12:15 | P.PN ---
Subjective Patient is seen for follow-up for acute kidney injury. Patient is currently being diuresed for volume overload. Lasix has being changed to oral. Serum creatinine 1.1 Good urine output. Sitter present at bedside as patient was confused during the night No significant complaints today. Objective - Vital Signs Vital signs: Vital Signs Temp 97.8 F 08/13/22 07:05 Pulse 79 08/13/22 07:05 Resp 16 08/13/22 07:05 BP 100/58 08/13/22 09:16 Pulse Ox 97 08/13/22 08:31 FiO2 Intake & Output 08/12/22 08/13/22 08/13/22 18:59 06:59 18:59 Intake Total 236 Output Total 1150 350 Balance -914 -350 Weight 76.5 kg Intake: Oral 236 Output: Urine 1150 350 Other: Voiding Method Indwelling Catheter Indwelling Catheter - Exam Patient is awake, comfortable, no acute distress Examination of the heart S1 and S2 Examination of the lungs bilateral breath sounds are heard no crackles or wheezing is heard Abdomen is soft nontender Examination lower extremity shows no significant edema 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 Acute kidney injury secondary to urine retention and hypotension, currently improved. Patient has an indwelling Webb catheter 2. Volume overload currently improved 3. Acute CHF with preserved ejection fraction 3. Anemia with hemoglobin down to 8.5 g/dL from 9.7 on initial admission. Iron saturation was low at 6.5% and patient is currently receiving IV iron. No active bleeding noted. Plan: Continue with Webb catheter Encourage increased oral intake Continue with current dose of Lasix.
[2022-08-13 12:19] LABS: Glucose,Whole Blood 206 mg/dL (70-110)
[2022-08-13 13:58] LABS: Anisocytosis Moderate; Basophils % (A) 0 %; Eosinophils # (A) 0.4 k/uL (0-0.7); Eosinophils % (A) 5 %; HCT 28.9 % (34.0-46.0); HGB 8.4 gm/dL (11.4-16.0); Hypochromasia Marked; Lymphocytes # (A) 1.1 k/uL (1.0-4.8); Lymphocytes % (A) 15 %; MCH 26.5 pg (25.0-35.0); MCV 91.2 fL (80.0-100.0); Macrocytosis Slight; Mean Platelet Volume 8.2; Monocytes # (A) 0.6 k/uL (0-1.0); Monocytes % (A) 8 %; Neutrophils # (A) 5.3 k/uL (1.3-7.7); Neutrophils % (A) 70 %; Platelet Count 265 k/uL (150-450); Poikilocytosis Slight; RBC 3.17 m/uL (3.80-5.40); RDW 21.8 % (11.5-15.5); WBC 7.7 k/uL (3.8-10.6)
--- NOTE | 2022-08-13 14:56 | P.PN ---
Subjective Progress Note Date: 08/13/22 81-year-old pleasant female was brought in because of generalized weakness. Patient is found to be in congestive heart failure, patient does have some shortness of breath patient uses 3 L of oxygen for COPD, presently on 4 L and patient denied any fever chills patient any cough. Patient denied any orthopnea or paroxysmal nocturnal dyspnea. Patient does have leukocytosis. There was a concern about a GI bleed patient does have problems with daily because of INR supplementation. Patient the family denied any obvious GI bleed clinically although occasionally patient will have blood in the stools secondary to hemorrhoids. Patient hemoglobin is 9.7 patient is a monitor. Obesity transfusion as had hemoglobin at outside hospital was around 7. Patient had adhesions in the past for low hemoglobin. Patient serum iron is 63 and ferritin is 49. Patient does have bilateral pedal edema. Patient does have history of atrial fibrillation for which patient underwent a watchman procedure anticoagul ation patient is also on 2 antiplatelet therapy had a cardiac catheterization unsure when her stents were placed. Patient does take 80 mg twice a day of Lasix along with as needed weekly metolazone. 08/09/2022 Patient is seen and evaluated in follow-up today sleeping and minimally arousable although when aroused patient is confused. Patient recently received Haldol and is on as needed Seroquel at night although per his nursing staff did not help a bit. Patient had been restless and thrashing out and about pulling on IVs and hitting at staff and currently with a sitter at the bedside for s afety. Family reports she does experience hospital acquired delirium. Patient is maintained on IV Lasix with cardiology following and GI had evaluated the patient and hematology is consulted and pending and will consult nephrology as patient is having worsening kidney functions and unsure if patient has chronic kidney disease. Patient does have history of anemia noted on the chart and hematology undergoing further workup. Patient will receive IV iron. Hemoglobin is down from yesterday of 9.7 and is currently 8.2 today with no active bleeding noted. Sodium is 133 with a potassium of 3.8, BUN is 62 and creatinine is 1.35 and blood sugars are elevated and patient does have history of diabetes. Recommend frequent reorientation with family and using scheduled Seroquel. Patient does chronically wear oxygen outpatient and of note on exam patient is a mouth breathe readings per nursing staff although oxygen saturations reevaluated and oxygen saturations are 90-94% on 4-5 L via nasal cannula. 08/10/2022 Patient evaluated today resting in bed just to have acute confusion however patient is responsive and reporting no acute complaints at this time. Cardiology following and has transitioned patient to oral Lasix today. Creatinine has mproved and down to 1.12. Continues on 4L of oxygen. Echocardiogram was a technically difficult study LV systolic function is fairly well preserved with moderate concentric LVH. 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 08/11/2022 Patient is evaluated today resting in bed with family at the bedside. Mentation is markedly improved today is alert x 2-3 and conversing appropriately. Family feels her mentation is near baseline. Creatinine has improved down to 1.01 today, patient continues with IDC in place for the urinary retention. Renal ultrasound reveals bilateral renal cysts. Sodium 132 today potassium of 3.2. Lasix has been changed to oral BID. Remains on seroquel at HS and haldol has been discontinued. medical scientist not at bedside for the last 24 hours. 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 08/12/2022 Patient is seen and evaluated in follow-up with daughter at the bedside with significant improvement in mentation. Patient is up and alert currently eating. Plan is to return to [facility] advanced case management following attempting to contact although most likely not accepting admissions secondary to the holiday. Patient is currently afebrile with nephrology and cardiology fol lowing. Patient continues with indwelling Webb catheter. Patient with significant weakness awaiting physical therapy evaluation. Patient is afebrile denies chest pain or worsening shortness of breath. No reports of nausea or vomiting noted in patient is tolerating diet. Recommend continue Seroquel at night. Frequent reorientation during the day with shades open and family present. 08/13/2022 Patient is seen and evaluated in follow-up today currently with the environmental health safety manager at bedside as patient does get somewhat confused while hospitalized. Would encourage opening the blinds on frequent reorientation with up out of the bed during the day more often. Patient is continued on large dose oral Lasix with nephrology following and will continue. Hemoglobin is 8.4 today with no active bleeding noted. Patient does continue with indwelling Webb catheter and would recommend removing the catheter and trial voiding although nephrology recommending keeping an and monitoring intake and output. Will follow-up with repeat labs and continue to monitor closely. Plan is for going to [facility] on discharge. Recommend PT/OT therapy evaluation in the a.m. Review of Systems Constitutional: Denied any fatigue denied any fever. Cardio vascular: denied any chest pain, palpitations Gastrointestinal: denied any nausea, vomiting, diarrhea Pulmonary: Denied any shortness of breath cough Neurologic denied any new focal deficits, reports generalized weakness and has not gotten up out of the bed with PT yet All inpatient medications were reviewed and appropriate changes in these medications as dictated in the interval history and assessment and plan. PHYSICAL EXAMINATION: GENERAL: The patient is alert and oriented x3, much more awake and alert with conversation. Well developed, well nourished. Obese. HEENT: Pupils are round and equally reacting to light. EOMI. No scleral icterus. No conjunctival pallor. Normocephalic, atraumatic. No pharyngeal erythema. No thyromegaly. CARDIOVASCULAR: S1 and S2 present. No murmurs, rubs, or gallops. PULMONARY: Diminished breath sounds bilaterally with some scattered rhonchi noted. ABDOMEN: Soft, obese. nontender, nondistended, normoactive bowel sounds. No palpable organomegaly. MUSCULOSKELETAL: No joint swelling or deformity. EXTREMITIES: No cyanosis, clubbing, peripheral edema resolved. NEUROLOGICAL: Gross neurological examination did not reveal any focal deficits. Generalized weakness. SKIN: No rashes. Assessment: -Acute hypoxic respiratory failure secondary to acute on chronic CHF diastolic dysfunction, acute exacerbation -Generalized weakness medical deconditioning -Altered mental status combination of hospital delirium and metabolic encephalopathy from SLOAN, resolving. -Iron deficiency anemia: No evidence of acute GI bleed, received IV ferrlecit now on oral iron. Continue on aspirin/plavix. -Hypervolemic hyponatremia secondary to heart failure -Acute kidney injury due to urinary retention and hypotension resolving -Urinary retention with indwelling catheter in place -Leukocytosis: Reactive without any clear evidence of infection, improved -Atrial fibrillation paroxysmal patient has a watchman procedure -Type 2 diabetes mellitus: Hold off on metformin, continue sliding scale insulin -Coronary artery disease -COPD without any acute exacerbation patient has chronic hypercapnic respiratory failure and wears oxygen outpatient -History of DVT in the past presently not on any anticoagulation as mentioned above -Sleep apnea -DVT prophylaxis: Subcutaneous heparin -GI prophylaxis: protonix -No code Plan: -Nephrology and cardiology following and patient has been transitioned oral Lasix. Recommend follow-up labs -Patient does wear oxygen outpatient and currently maintained on 3 L. Patient is clearly a mouth breather on exam -Patient was seen and evaluated by GI with no evidence of a GI bleed and recently had an EGD in the outpatient setting in [facility] which reveals no -evidence of bleeding. Colonoscopy was offered here with GI and patient refused. -Recommend to continue on Seroquel at night and mentation has improved. Recommend frequent reorientation with family members at bedside and lights and windows open during the day -Continue with IDC and consider voiding trial although nephrology recommends continuing with Webb catheter to monitor intake and output -Follow up Labs in AM -We'll continue monitoring Accu-Cheks before meals and at bedtime and will continue to hold metformin -D/C to [facility] possibly on Friday as case management is following in the facility has not returned a call most likely closed for admissions secondary to the holiday. Will follow up with case management in the a.m. -Possible discharge in the next 24-48 hours The impression and plan of care has been dictated by Cici Jeong, Nurse Practitioner as directed. Dr. Max MD I have performed a history and examination and MDM of this patient, discussed the same with the dictator, and agree with the dictator's assessment and plan as written ,documented as a scribe. Based on total visit time, I have performed more than 50% of the visit. Objective - Vital Signs Vital signs: Vital Signs Temp 97.8 F 08/13/22 07:05 Pulse 79 08/13/22 07:05 Resp 16 08/13/22 07:05 BP 100/58 08/13/22 09:16 Pulse Ox 97 08/13/22 08:31 FiO2 Intake & Output 08/12/22 08/13/22 08/13/22 18:59 06:59 18:59 Intake Total 236 Output Total 1150 350 Balance -914 -350 Weight 76.5 kg Intake: Oral 236 Output: Urine 1150 350 Other: Voiding Method Indwelling Catheter - Labs CBC & Chem 7: 08/13/22 12:27 08/12/22 08:18 Labs: Abnormal Lab Results - Last 24 Hours (Table) 08/09/22 08/10/22 08/12/22 Range/Units 09:31 11:10 08:18 RBC 3.19 L (3.80-5.40) m/uL Hgb 8.4 L (11.4-16.0) gm/dL Hct 28.5 L (34.0-46.0) % MCHC 29.5 L (31.0-37.0) g/dL RDW 22.0 H (11.5-15.5) % Sodium (137-145) mmol/L Chloride (98-107) mmol/L Carbon Dioxide (22-30) mmol/L BUN (7-17) mg/dL Creatinine (0.52-1.04) mg/dL Glucose (74-99) mg/dL POC Glucose (mg/dL) (70-110) mg/dL Erythropoietin 660.08 H (2.00-30.00) mIU/mL Methylmalonic Acid 3.26 H (<0.40) umol/L 08/12/22 08/12/22 08/12/22 Range/Units 08:18 11:17 15:57 RBC (3.80-5.40) m/uL Hgb (11.4-16.0) gm/dL Hct (34.0-46.0) % MCHC (31.0-37.0) g/dL RDW (11.5-15.5) % Sodium 134 L (137-145) mmol/L Chloride 90 L (98-107) mmol/L Carbon Dioxide 37 H (22-30) mmol/L BUN 44 H (7-17) mg/dL Creatinine 1.15 H (0.52-1.04) mg/dL Glucose 236 H (74-99) mg/dL POC Glucose (mg/dL) 248 H 304 H (70-110) mg/dL Erythropoietin (2.00-30.00) mIU/mL Methylmalonic Acid (<0.40) umol/L 08/12/22 08/13/22 Range/Units 20:28 07:09 RBC (3.80-5.40) m/uL Hgb (11.4-16.0) gm/dL Hct (34.0-46.0) % MCHC (31.0-37.0) g/dL RDW (11.5-15.5) % Sodium (137-145) mmol/L Chloride (98-107) mmol/L Carbon Dioxide (22-30) mmol/L BUN (7-17) mg/dL Creatinine (0.52-1.04) mg/dL Glucose (74-99) mg/dL POC Glucose (mg/dL) 225 H 185 H (70-110) mg/dL Erythropoietin (2.00-30.00) mIU/mL Methylmalonic Acid (<0.40) umol/L
[2022-08-13] MEDS: HYDROcodone/APAP 5-325MG 1 EACH TAB PO PRN (15:44)
[2022-08-13 17:39] LABS: Glucose,Whole Blood 204 mg/dL (70-110)
[2022-08-13 20:28] LABS: Glucose,Whole Blood 173 mg/dL (70-110)
[2022-08-13] MEDS: QUEtiapine 25 MG TAB PO SCH (22:48)
[2022-08-13] MEDS: ATORVASTATIN 20 MG TAB PO SCH (22:48)
[2022-08-13] MEDS: INSULIN DETEMIR (LEVEMIR) 100 UNIT/ML SYR SQ SCH (22:49)
[2022-08-14] MEDS: ALPRAZolam 0.25 MG TAB PO PRN (02:58)
[2022-08-14] MEDS: ACETAMINOPHEN TAB 325 MG TAB PO PRN ×2 (02:59→13:25)
[2022-08-14 07:27] LABS: Glucose,Whole Blood 156 mg/dL (70-110)
[2022-08-14] MEDS: SYMBICORT 80-4.5 MCG INHALER INHALATION SCH ×2 (07:43→21:05)
[2022-08-14] MEDS: HYDROcodone/APAP 5-325MG 1 EACH TAB PO PRN (07:43)
[2022-08-14] MEDS: INSULIN ASPART (NovoLOG) 100 UNIT/ML VIAL SQ SCH ×7 (08:55→21:05)
[2022-08-14] MEDS: CHOLECALCIFEROL 25 MCG (1000 IU) TABLET PO SCH (08:56)
[2022-08-14] MEDS: DAPAGLIFLOZIN PROPANEDIOL 10 MG TABLET PO SCH (08:57)
[2022-08-14] MEDS: CALCIUM CARB-VIT D 500 MG-5 MCG TAB PO SCH (08:57)
[2022-08-14] MEDS: FLUoxetine HCL 20 MG CAP PO SCH ×2 (08:57→21:05)
[2022-08-14] MEDS: CLOPIDOGREL 75 MG TAB PO SCH (08:57)
[2022-08-14] MEDS: FUROSEMIDE 80 MG TAB PO SCH ×2 (08:57→16:51)
[2022-08-14] MEDS: METOPROLOL SUCCINATE (ER) 25 MG TAB.ER.24H PO SCH (08:57)
[2022-08-14] MEDS: ASPIRIN 81 MG PO SCH (08:57)
[2022-08-14] MEDS: DOCUSATE 100 MG CAP PO SCH (08:57)
[2022-08-14] MEDS: PANTOPRAZOLE 40 MG/10 ML VIAL IV SCH (08:58)
[2022-08-14] MEDS: AZELASTINE 137MCG/SPRAY EA NOSTRIL SCH ×2 (08:58→21:06)
[2022-08-14 11:05] LABS: HGB 7.8 d/dL (12.0-15.0); MCH 24.7 pg (27.0-32.0); MCHC 26.9 d/dL (32.0-37.0); MCV 91.8 FL (80.0-97.0); Mean Platelet Volume 10.3 FL (9.5-12.2); NRBC Per 100 WBC 0 X 10*3/uL (0.00-0.01); Platelet Count 288 X 10*3/uL (140-440); RBC 3.16 X 10*6/uL (4.10-5.20); RDW 22.5 % (11.5-14.5); WBC 9.01 X 10*3/uL (4.50-10.00)
[2022-08-14 11:18] LABS: BUN/Creat Ratio 27.17 Ratio (12.00-20.00); Blood Urea Nitrogen 32.6 mg/dL (9.0-27.0); Calcium 8.6 mg/dL (8.7-10.3); Carbon Dioxide 30.6 mmol/L (21.6-31.8); Chloride 96 mmol/L (96-109); Glucose 146 mg/dL (70-110); Potassium 3.8 mmol/L (3.5-5.5); Sodium 140 mmol/L (135-145)
[2022-08-14 11:40] LABS: Anisocytosis (M) 2+; Basophils # (A) 0.05 X 10*3/uL (0.00-0.10); Basophils % (A) 0.6 %; Eosinophils # (A) 0.33 X 10*3/uL (0.04-0.35); Eosinophils % (A) 3.7 %; Lymphocytes # (A) 1.57 X 10*3/uL (0.90-5.00); Lymphocytes % (A) 17.4 %; Macrocytosis (M) 2+; Monocytes # (A) 0.81 X 10*3/uL (0.20-1.00); Neutrophils % (A) 68.7 %
[2022-08-14 12:09] LABS: Glucose,Whole Blood 163 mg/dL (70-110)
--- NOTE | 2022-08-14 13:08 | P.PN ---
Subjective Patient is seen for follow-up for acute kidney injury. Patient is currently being diuresed for volume overload. Lasix has being changed to oral. Serum creatinine 1.2 Good urine output. Sitter present at bedside as patient was confused during the night. She had pulled out her Webb catheter. This was reinserted. No significant complaints today. Objective - Vital Signs Vital signs: Vital Signs Temp 97.7 F 08/14/22 11:33 Pulse 68 08/14/22 11:33 Resp 16 08/14/22 11:33 BP 95/62 08/14/22 11:33 Pulse Ox 98 08/14/22 11:33 FiO2 Intake & Output 08/13/22 08/14/22 08/14/22 18:59 06:59 18:59 Output Total 700 750 Balance -700 -750 Output: Urine 700 750 Uretheral (Webb) 375 Other: Voiding Method Indwelling Catheter Indwelling Catheter Indwelling Catheter - Exam Patient is Sleeping but arousable, comfortable, no acute distress Examination of the heart S1 and S2 Examination of the lungs bilateral breath sounds are heard no crackles or wheezing is heard Abdomen is soft nontender Examination lower extremity shows no significant edema DIRECTOR OF MEDICAL SERVICES exam grossly intact - Labs CBC & Chem 7: 08/14/22 06:56 08/14/22 06:56 Labs: Abnormal Lab Results - Last 24 Hours (Table) 08/13/22 08/13/22 08/13/22 Range/Units 12:27 17:35 20:26 RBC 3.17 L (3.80-5.40) m/uL Hgb 8.4 L (11.4-16.0) gm/dL Hct 28.9 L (34.0-46.0) % MCH (27.0-32.0) pg MCHC 29.0 L (31.0-37.0) g/dL RDW 21.8 H (11.5-15.5) % Anisocytosis (manual) Macrocytosis (manual) Anion Gap (4.00-12.00) mmol/L BUN (9.0-27.0) mg/dL Est GFR (CKD-EPI) (>=60) BUN/Creatinine Ratio (12.00-20.00) Ratio Glucose (70-110) mg/dL POC Glucose (mg/dL) 204 H 173 H (70-110) mg/dL Calcium (8.7-10.3) mg/dL 08/14/22 08/14/22 08/14/22 Range/Units 06:56 06:56 07:10 RBC 3.16 L (3.80-5.40) m/uL Hgb 7.8 L (11.4-16.0) gm/dL Hct 29.0 L (34.0-46.0) % MCH 24.7 L (27.0-32.0) pg MCHC 26.9 L (31.0-37.0) g/dL RDW 22.5 H (11.5-15.5) % Anisocytosis (manual) 2+ A Macrocytosis (manual) 2+ A Anion Gap 13.40 H (4.00-12.00) mmol/L BUN 32.6 H (9.0-27.0) mg/dL Est GFR (CKD-EPI) 45 L (>=60) BUN/Creatinine Ratio 27.17 H (12.00-20.00) Ratio Glucose 146 H (70-110) mg/dL POC Glucose (mg/dL) 156 H (70-110) mg/dL Calcium 8.6 L (8.7-10.3) mg/dL 08/14/22 Range/Units 11:36 RBC (3.80-5.40) m/uL Hgb (11.4-16.0) gm/dL Hct (34.0-46.0) % MCH (27.0-32.0) pg MCHC (31.0-37.0) g/dL RDW (11.5-15.5) % Anisocytosis (manual) Macrocytosis (manual) Anion Gap (4.00-12.00) mmol/L BUN (9.0-27.0) mg/dL Est GFR (CKD-EPI) (>=60) BUN/Creatinine Ratio (12.00-20.00) Ratio Glucose (70-110) mg/dL POC Glucose (mg/dL) 163 H (70-110) mg/dL Calcium (8.7-10.3) mg/dL Assessment and Plan Assessment: 1. Acute kidney injury secondary to urine retention and hypotension, currently improved. Patient has an indwelling Webb catheter 2. Volume overload currently improved 3. Acute CHF with preserved ejection fraction 3. Anemia with hemoglobin down to 8.5 g/dL from 9.7 on initial admission. Iron saturation was low at 6.5% and patient is currently receiving IV iron. No active bleeding noted. Plan: Continue with Webb catheter Encourage increased oral intake decrease Lasix if serum creatinine is higher tomorrow.
[2022-08-14 17:06] LABS: Glucose,Whole Blood 116 mg/dL (70-110)
[2022-08-14 20:16] LABS: Glucose,Whole Blood 186 mg/dL (70-110)
[2022-08-14] MEDS: QUEtiapine 25 MG TAB PO SCH (21:05)
[2022-08-14] MEDS: ATORVASTATIN 20 MG TAB PO SCH (21:05)
[2022-08-14] MEDS: INSULIN DETEMIR (LEVEMIR) 100 UNIT/ML SYR SQ SCH (21:06)
[2022-08-15 01:58] VITALS: RESP 16; TEMP 97.8
[2022-08-15] MEDS: HYDROcodone/APAP 5-325MG 1 EACH TAB PO PRN (02:39)
--- NOTE | 2022-08-15 05:33 | P.PN ---
Subjective Progress Note Date: 08/15/22 81-year-old pleasant female was brought in because of generalized weakness. Patient is found to be in congestive heart failure, patient does have some shortness of breath patient uses 3 L of oxygen for COPD, presently on 4 L and patient denied any fever chills patient any cough. Patient denied any orthopnea or paroxysmal nocturnal dyspnea. Patient does have leukocytosis. There was a concern about a GI bleed patient does have problems with daily because of INR supplementation. Patient the family denied any obvious GI bleed clinically although occasionally patient will have blood in the stools secondary to hemorrhoids. Patient hemoglobin is 9.7 patient is a monitor. Obesity transfusion as had hemoglobin at outside hospital was around 7. Patient had adhesions in the past for low hemoglobin. Patient serum iron is 63 and ferritin is 49. Patient does have bilateral pedal edema. Patient does have history of atrial fibrillation for which patient underwent a watchman procedure anticoagul ation patient is also on 2 antiplatelet therapy had a cardiac catheterization unsure when her stents were placed. Patient does take 80 mg twice a day of Lasix along with as needed weekly metolazone. 08/09/2022 Patient is seen and evaluated in follow-up today sleeping and minimally arousable although when aroused patient is confused. Patient recently received Haldol and is on as needed Seroquel at night although per his nursing staff did not help a bit. Patient had been restless and thrashing out and about pulling on IVs and hitting at staff and currently with a sitter at the bedside for s afety. Family reports she does experience hospital acquired delirium. Patient is maintained on IV Lasix with cardiology following and GI had evaluated the patient and hematology is consulted and pending and will consult nephrology as patient is having worsening kidney functions and unsure if patient has chronic kidney disease. Patient does have history of anemia noted on the chart and hematology undergoing further workup. Patient will receive IV iron. Hemoglobin is down from yesterday of 9.7 and is currently 8.2 today with no active bleeding noted. Sodium is 133 with a potassium of 3.8, BUN is 62 and creatinine is 1.35 and blood sugars are elevated and patient does have history of diabetes. Recommend frequent reorientation with family and using scheduled Seroquel. Patient does chronically wear oxygen outpatient and of note on exam patient is a mouth breathe readings per nursing staff although oxygen saturations reevaluated and oxygen saturations are 90-94% on 4-5 L via nasal cannula. 08/10/2022 Patient evaluated today resting in bed just to have acute confusion however patient is responsive and reporting no acute complaints at this time. Cardiology following and has transitioned patient to oral Lasix today. Creatinine has mproved and down to 1.12. Continues on 4L of oxygen. Echocardiogram was a technically difficult study LV systolic function is fairly well preserved with moderate concentric LVH. 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 08/11/2022 Patient is evaluated today resting in bed with family at the bedside. Mentation is markedly improved today is alert x 2-3 and conversing appropriately. Family feels her mentation is near baseline. Creatinine has improved down to 1.01 today, patient continues with IDC in place for the urinary retention. Renal ultrasound reveals bilateral renal cysts. Sodium 132 today potassium of 3.2. Lasix has been changed to oral BID. Remains on seroquel at HS and haldol has been discontinued. manager application not at bedside for the last 24 hours. 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 08/12/2022 Patient is seen and evaluated in follow-up with daughter at the bedside with significant improvement in mentation. Patient is up and alert currently eating. Plan is to return to [facility] advanced case management following attempting to contact although most likely not accepting admissions secondary to the holiday. Patient is currently afebrile with nephrology and cardiology fol lowing. Patient continues with indwelling Webb catheter. Patient with significant weakness awaiting physical therapy evaluation. Patient is afebrile denies chest pain or worsening shortness of breath. No reports of nausea or vomiting noted in patient is tolerating diet. Recommend continue Seroquel at night. Frequent reorientation during the day with shades open and family present. 08/13/2022 Patient is seen and evaluated in follow-up today currently with the patient safety tech at bedside as patient does get somewhat confused while hospitalized. Would encourage opening the blinds on frequent reorientation with up out of the bed during the day more often. Patient is continued on large dose oral Lasix with nephrology following and will continue. Hemoglobin is 8.4 today with no active bleeding noted. Patient does continue with indwelling Webb catheter and would recommend removing the catheter and trial voiding although nephrology recommending keeping an and monitoring intake and output. Will follow-up with repeat labs and continue to monitor closely. Plan is for going to [facility] on discharge. Recommend PT/OT therapy evaluation in the a.m. 08/14/2022 Patient is seen in follow-up today currently sleeping although arousable. Patient continues with confusion at times and maintained on Seroquel. Daughter reports increased confusion with hospitalization. Most likely hospital-acquired delirium. Would recommend frequent reorientation with blinds and windows open. Patient is afebrile and reported chest pain or shortness of breath. Patient to continue with indwelling Webb catheter to monitor intake and output and patient also had some retention. Patient attempted trial void in the outpatient setting once more mobile. Hemoglobin stable above 7 with known anemia and no active bleeding. Patient was seen initially by GI recommending repeat colonoscopy and patient refused. Patient had one at [facility] recently. Patient is maintained on Lasix and will monitor kidney functions with follow-up labs. Nephrology is following. Review of Systems Constitutional: Denied any fatigue denied any fever. Cardio vascular: denied any chest pain, palpitations Gastrointestinal: denied any nausea, vomiting, diarrhea Pulmonary: Denied any shortness of breath cough Neurologic denied any new focal deficits, reports generalized weakness Medications have been reviewed. PHYSICAL EXAMINATION: GENERAL: The patient is alert and oriented x3, much more awake and alert with conversation. Well developed, well nourished. Obese. HEENT: Pupils are round and equally reacting to light. EOMI. No scleral icterus. No conjunctival pallor. Normocephalic, atraumatic. No pharyngeal erythema. No thyromegaly. CARDIOVASCULAR: S1 and S2 present. No murmurs, rubs, or gallops. PULMONARY: Diminished breath sounds bilaterally with some scattered rhonchi noted. ABDOMEN: Soft, obese. nontender, nondistended, normoactive bowel sounds. No palpable organomegaly. MUSCULOSKELETAL: No joint swelling or deformity. EXTREMITIES: No cyanosis, clubbing, peripheral edema resolved. NEUROLOGICAL: Gross neurological examination did not reveal any focal deficits. Generalized weakness. SKIN: No rashes. Assessment: -Acute hypoxic respiratory failure secondary to acute on chronic CHF diastolic dysfunction, acute exacerbation -Generalized weakness, medical deconditioning -Altered mental status combination of hospital delirium and metabolic encephalopathy from SLOAN, resolving. -Iron deficiency anemia: No evidence of acute GI bleed, received IV ferrlecit now on oral iron. Continue on aspirin/plavix. -Hypervolemic hyponatremia secondary to heart failure -Acute kidney injury due to urinary retention and hypotension resolving -Urinary retention with indwelling catheter in place -Leukocytosis: Reactive without any clear evidence of infection, improved -Atrial fibrillation paroxysmal patient has a watchman procedure -Type 2 diabetes mellitus: Hold off on metformin, continue sliding scale insulin -Coronary artery disease -COPD without any acute exacerbation patient has chronic hypercapnic respiratory failure and wears oxygen outpatient -History of DVT in the past presently not on any anticoagulation as mentioned above -Sleep apnea -DVT prophylaxis: Subcutaneous heparin -GI prophylaxis: protonix -No code Plan: -Nephrology and cardiology following and patient has been transitioned oral Lasix. Recommend follow-up labs -Patient does wear oxygen outpatient and currently maintained on 3 L. -Patient was seen and evaluated by GI with no evidence of a GI bleed and recently had an EGD in the outpatient setting in [facility] which reveals no - evidence of bleeding. Colonoscopy was offered here with GI and patient refused. -Recommend to continue on Seroquel at night and mentation has improved. Recommend frequent reorientation with family members at bedside and lights and windows open during the day -Continue with IDC and consider voiding trial in the outpatient setting once more mobile. nephrology recommends continuing with Webb catheter to monitor intake and output -Follow up Labs in AM to monitor hemoglobin and kidney functions. -We'll continue monitoring Accu-Cheks before meals and at bedtime and will continue to hold metformin -D/C to [facility] possibly in 24 hours if bed is available as case management is following. Will follow up with case management in the a.m. -Possible discharge in the next 24 hours The impression and plan of care has been dictated by Cici Jeong, Nurse Practitioner as directed. Dr. Max MD I have performed a history and examination and MDM of this patient, discussed the same with the dictator, and agree with the dictator's assessment and plan as written ,documented as a scribe. Based on total visit time, I have performed more than 50% of the visit. Objective - Vital Signs Vital signs: Vital Signs Temp 97.7 F 08/14/22 07:06 Pulse 71 08/14/22 07:06 Resp 15 07/05/23 07:06 BP 111/74 08/14/22 07:06 Pulse Ox 97 08/14/22 07:43 FiO2 Intake & Output 08/13/22 08/14/22 08/14/22 18:59 06:59 18:59 Output Total 700 750 Balance -700 -750 Output: Urine 700 750 Uretheral (Webb) 375 Other: Voiding Method Indwelling Catheter Indwelling Catheter - Labs CBC & Chem 7: 08/14/22 06:56 08/14/22 06:56 Labs: Abnormal Lab Results - Last 24 Hours (Table) 08/13/22 08/13/22 08/13/22 Range/Units 12:17 12:27 17:35 RBC 3.17 L (3.80-5.40) m/uL Hgb 8.4 L (11.4-16.0) gm/dL Hct 28.9 L (34.0-46.0) % MCHC 29.0 L (31.0-37.0) g/dL RDW 21.8 H (11.5-15.5) % POC Glucose (mg/dL) 206 H 204 H (70-110) mg/dL 08/13/22 08/14/22 Range/Units 20:26 07:10 RBC (3.80-5.40) m/uL Hgb (11.4-16.0) gm/dL Hct (34.0-46.0) % MCHC (31.0-37.0) g/dL RDW (11.5-15.5) % POC Glucose (mg/dL) 173 H 156 H (70-110) mg/dL
[2022-08-15 07:38] LABS: Glucose,Whole Blood 221 mg/dL (70-110)
[2022-08-15] MEDS: FUROSEMIDE 80 MG TAB PO SCH (08:06)
[2022-08-15] MEDS: METOPROLOL SUCCINATE (ER) 25 MG TAB.ER.24H PO SCH (08:06)
[2022-08-15] MEDS: CLOPIDOGREL 75 MG TAB PO SCH (08:06)
[2022-08-15] MEDS: DOCUSATE 100 MG CAP PO SCH (08:06)
[2022-08-15] MEDS: CALCIUM CARB-VIT D 500 MG-5 MCG TAB PO SCH (08:07)
[2022-08-15] MEDS: INSULIN ASPART (NovoLOG) 100 UNIT/ML VIAL SQ SCH ×2 (08:07)
[2022-08-15] MEDS: CHOLECALCIFEROL 25 MCG (1000 IU) TABLET PO SCH (08:07)
[2022-08-15] MEDS: FLUoxetine HCL 20 MG CAP PO SCH (08:07)
[2022-08-15] MEDS: ASPIRIN 81 MG PO SCH (08:07)
[2022-08-15 08:10] VITALS: BP 113/69; PULSE 72
[2022-08-15] MEDS: PANTOPRAZOLE 40 MG/10 ML VIAL IV SCH (08:12)
[2022-08-15] MEDS: AZELASTINE 137MCG/SPRAY EA NOSTRIL SCH (08:14)
[2022-08-15] MEDS: DAPAGLIFLOZIN PROPANEDIOL 10 MG TABLET PO SCH (08:14)
[2022-08-15] MEDS: SYMBICORT 80-4.5 MCG INHALER INHALATION SCH (08:46)
[2022-08-15 09:25] LABS: Basophils # (A) 0.04 X 10*3/uL (0.00-0.10); Basophils % (A) 0.5 %; Eosinophils # (A) 0.43 X 10*3/uL (0.04-0.35); Eosinophils % (A) 5.6 %; HCT 30.1 % (37.2-46.3); HGB 8.2 d/dL (12.0-15.0); Lymphocytes # (A) 1.46 X 10*3/uL (0.90-5.00); Lymphocytes % (A) 18.9 %; MCH 25.5 pg (27.0-32.0); MCHC 27.2 d/dL (32.0-37.0); MCV 93.5 FL (80.0-97.0); Mean Platelet Volume 10.8 FL (9.5-12.2); Monocytes # (A) 0.91 X 10*3/uL (0.20-1.00); Monocytes % (A) 11.8 %; NRBC Per 100 WBC 0 X 10*3/uL (0.00-0.01); Neutrophils # (A) 4.82 X 10*3/uL (1.80-7.70); Neutrophils % (A) 62.6 %; Platelet Count 315 X 10*3/uL (140-440); RBC 3.22 X 10*6/uL (4.10-5.20); WBC 7.71 X 10*3/uL (4.50-10.00)
--- NOTE | 2022-08-15 10:52 | P.DS ---
Providers Date of admission: 08/07/22 18:26 Expected date of discharge: 08/15/22 Attending physician: Wesley Wei MD Consults: 08/08/22 13:20 Consult Physician Routine Consulting Provider: Hadley Saldana Consult Reason/Comments: chronic anemia Do you want consulting provider notified?: Yes 08/09/22 00:21 Consult Physician Urgent Consulting Provider: Nikolas Edwards Consult Reason/Comments: NEED FOR DIFFICULT BERGMAN CATHETER PLACEMENT Do you want consulting provider notified?: Yes 08/09/22 16:49 Consult Physician Urgent Consulting Provider: Nisha Hoskins Consult Reason/Comments: sloan, ckd??, anemia, altered mentation, on lasix for chf Do you want consulting provider notified?: Yes Primary care physician: Stated None Hospital Course: Final diagnosis -Acute hypoxic respiratory failure secondary to acute on chronic CHF diastolic dysfunction, acute exacerbation -Generalized weakness, medical deconditioning -Altered mental status combination of hospital delirium and metabolic encephalopathy from SLOAN, resolving. -Iron deficiency anemia: No evidence of acute GI bleed, received IV ferrlecit now on oral iron. Continue on aspirin/plavix. -Hypervolemic hyponatremia secondary to heart failure -Acute kidney injury due to urinary retention and hypotension resolving -Urinary retention with indwelling catheter in place -Leukocytosis: Reactive without any clear evidence of infection, improved -Atrial fibrillation paroxysmal patient has a watchman procedure -Type 2 diabetes mellitus: Hold off on metformin, continue sliding scale insulin -Coronary artery disease -COPD without any acute exacerbation patient has chronic hypercapnic respiratory failure and wears oxygen outpatient -History of DVT in the past presently not on any anticoagulation as mentioned above -Sleep apnea -DVT prophylaxis: Subcutaneous heparin -GI prophylaxis: protonix -No code Discharge disposition Patient is being discharged in a stable condition with guarded prognosis to [facility]. Patient will follow-up with in the outpatient setting upon discharge. Patient is to continue with hemodialysis as scheduled. Total time taken is greater than 35 minutes. Hospital course This is a 81-year-old female who was recently admitted with symptomatic anemia as well as CHF exacerbation being closely monitored. Patient was seen and evaluated by GI initially recommending a colonoscopy and patient refused and patient had one at [facility] recently. Patient also noted to be in CHF exacerbation maintained on IV Lasix with multiple medical consultations including nephrology and cardiology following. Patient's hemoglobin is stable and improved at 8.2 today and recommend outpatient follow-up with labs. Per daughter patient becomes very confused at hospitals acquiring hospital delirium and is maintained on Seroquel. Patient did have urinary retention as well requiring indwelling Bergman catheter. Patient is significantly weak and will be going to rehab for strength and mobility. Would recommend trial of voiding in the outpatient setting once more mobile. Patient may need urology consult in the outpatient setting. Patient is currently afebrile with no reports of chest pain or shortness of breath. Patient does have diabetes and would recommend heart healthy diabetic diet and would continue to hold metformin and continue sliding scale with Accu-Cheks before meals and at bedtime. Patient has been cleared by consultations for discharge to [facility] today. Please refer to other consultation notes for further HPI. Currently no reports of chest pain, shortness of breath, or palpitations. Patient is afebrile. No reports of nausea or vomiting and patient is tolerating diet. Patient will be going to [facility] today. Guarded prognosis. Patient is no code per their request. Physical exam: Gen: This is a 81-year-old female who is awake, alert and oriented 2, well- developed, well-nourished, obese HEENT: Head is atraumatic, normocephalic. Pupils equal, round. Sclerae is anicteric. NECK: Supple. No JVD. No lymphadenopathy. No thyromegaly. LUNGS: Clear to auscultation. No wheezes or rhonchi. No intercostal retractions. HEART: S1, S2 are muffled ABDOMEN: Soft. Obese. Bowel sounds are present. No masses. No tenderness. EXTREMITIES: No pedal edema. No calf tenderness. NEUROLOGICAL: Patient is awake, alert and oriented x2-3. Diffusely weak Please refer to medication reconciliation sheet for a list of medications. The impression and plan of care has been dictated by Cici Jeong, Nurse Practitioner as directed. Dr. Luis MD I have performed a history and examination and MDM of this patient, discussed the same with the dictator, and agree with the dictator's assessment and plan as written ,documented as a scribe. Based on total visit time, I have performed more than 50% of the visit. Patient Condition at Discharge: Stable Plan - Discharge Summary Discharge Rx Participant: No New Discharge Prescriptions: New Ipratropium-Albuterol Nebulize [Duoneb 0.5 mg-3 mg/3 ml Soln] 3 ml INHALATION RT-QID PRN each PRN Reason: Shortness Of Breath Or Wheezing guaiFENesin [Mucinex] 600 mg PO Q12HR PRN tab PRN Reason: Congestion QUEtiapine [SEROquel] 25 mg PO HS tab Insulin Detemir (Levemir) [Levemir] 5 unit SQ HS each INSULIN ASPART (NovoLOG) [NovoLOG (formulary)] 0 unit SQ ACHS each Metoprolol Succinate (ER) [Toprol XL] 25 mg PO DAILY tab Acetaminophen Tab [Tylenol] 650 mg PO Q6HR PRN tab PRN Reason: Fever And/ Or Pain Continue Prevagen Supplement 1 tab PO DAILY Ferrous Sulfate [Iron (65 MG Elemental)] 325 mg PO DAILY Cholecalciferol [Vitamin D3 (25 Mcg = 1000 Iu)] 50 mcg PO DAILY metOLazone [Zaroxolyn] 2.5 mg PO MO PRN PRN Reason: Edema Aspirin EC [Ecotrin Low Dose] 81 mg PO DAILY glipiZIDE [Glucotrol] 5 mg PO BID Simvastatin [Zocor] 40 mg PO HS Fluticasone Propion/Salmeterol [Advair 250-50 Diskus] 1 puff INHALATION RT- BID Metoprolol Tartrate [Lopressor] 25 mg PO HS PRN PRN Reason: high blood pressure FLUoxetine HCL [PROzac] 20 mg PO HS Collagenase [Santyl Ointment] 1 applic TOPICAL DAILY FLUoxetine HCL [PROzac] 40 mg PO DAILY Empagliflozin [Jardiance] 25 mg PO DAILY Azelastine HCl [Astelin Nasal Jean] 1 spray EA NOSTRIL BID HYDROcodone/APAP 5-325MG [Fries 5-325] 1 tab PO Q6H PRN #4 tab PRN Reason: Pain ALPRAZolam [Xanax] 0.25 mg PO TID PRN #3 tab PRN Reason: Anxiety Docusate [Colace] 100 mg PO DAILY Calcium Carbonate/Vitamin D3 [Calcium 600 mg-D3 20 mcg (800 unit)] 1 tab PO DAILY Furosemide [Lasix] 80 mg PO BID Clopidogrel [Plavix] 75 mg PO DAILY Discontinued metFORMIN HCL [Glucophage] 850 mg PO BID Metoprolol Succinate (ER) [Toprol Xl] 50 mg PO DAILY Discharge Medication List Aspirin EC [Ecotrin Low Dose] 81 mg PO DAILY 08/07/22 [History] Azelastine HCl [Astelin Nasal Jean] 1 spray EA NOSTRIL BID 08/07/22 [History] Calcium Carbonate/Vitamin D3 [Calcium 600 mg-D3 20 mcg (800 unit)] 1 tab PO DAILY 08/07/22 [History] Cholecalciferol [Vitamin D3 (25 Mcg = 1000 Iu)] 50 mcg PO DAILY 08/07/22 [History] Clopidogrel [Plavix] 75 mg PO DAILY 08/07/22 [History] Collagenase [Santyl Ointment] 1 applic TOPICAL DAILY 08/07/22 [History] Docusate [Colace] 100 mg PO DAILY 08/07/22 [History] Empagliflozin [Jardiance] 25 mg PO DAILY 08/07/22 [History] FLUoxetine HCL [PROzac] 20 mg PO HS 08/07/22 [History] FLUoxetine HCL [PROzac] 40 mg PO DAILY 08/07/22 [History] Ferrous Sulfate [Iron (65 MG Elemental)] 325 mg PO DAILY 08/07/22 [History] Fluticasone Propion/Salmeterol [Advair 250-50 Diskus] 1 puff INHALATION RT-BID 08/07/22 [History] Furosemide [Lasix] 80 mg PO BID 08/07/22 [History] Metoprolol Tartrate [Lopressor] 25 mg PO HS PRN 08/07/22 [History] Prevagen Supplement 1 tab PO DAILY 08/07/22 [History] Simvastatin [Zocor] 40 mg PO HS 08/07/22 [History] glipiZIDE [Glucotrol] 5 mg PO BID 08/07/22 [History] metOLazone [Zaroxolyn] 2.5 mg PO MO PRN 08/07/22 [History] ALPRAZolam [Xanax] 0.25 mg PO TID PRN #3 tab 08/14/22 [Rx] Acetaminophen Tab [Tylenol] 650 mg PO Q6HR PRN tab 08/14/22 [Rx] HYDROcodone/APAP 5-325MG [Fries 5-325] 1 tab PO Q6H PRN #4 tab 08/14/22 [Rx] INSULIN ASPART (NovoLOG) [NovoLOG (formulary)] 0 unit SQ ACHS each 08/14/22 [Rx] Insulin Detemir (Levemir) [Levemir] 5 unit SQ HS each 08/14/22 [Rx] Ipratropium-Albuterol Nebulize [Duoneb 0.5 mg-3 mg/3 ml Soln] 3 ml INHALATION RT-QID PRN each 08/14/22 [Rx] Metoprolol Succinate (ER) [Toprol XL] 25 mg PO DAILY tab 08/14/22 [Rx] QUEtiapine [SEROquel] 25 mg PO HS tab 08/14/22 [Rx] guaiFENesin [Mucinex] 600 mg PO Q12HR PRN tab 08/14/22 [Rx] Follow up Appointment(s)/Referral(s): None,Stated [Primary Care Provider] - 1-2 days Activity/Diet/Wound Care/Special Instructions: Patient going to ECF Activity as tolerated Recommend nephrology follow-up outpatient Recommend cardiology outpatient Recommend GI outpatient Recommend continue with indwelling Bergman catheter for now on trial void once more mobile Continue with diabetic/heart healthy diet Continue sliding scale and Accu-Cheks before meals and at bedtime NovoLog sliding scale 0-150 equals 0 units 151-200 equals 2 units 201-250 equals 4 units 251-300 equals 6 units 301-350 equals 8 units 351-400 equals 10 units Please notify provider if blood sugar is 400 or above reCommend repeat CBC, BMP in 2-3 days Discharge Disposition: TRANSFER TO SNF/ECF
[2022-08-15 11:41] LABS: BUN/Creat Ratio 26.33 Ratio (12.00-20.00); Blood Urea Nitrogen 31.6 mg/dL (9.0-27.0); Calcium 8.8 mg/dL (8.7-10.3); Carbon Dioxide 29.4 mmol/L (21.6-31.8); Chloride 95 mmol/L (96-109); Glucose 145 mg/dL (70-110); Sodium 139 mmol/L (135-145)
[2022-08-15 11:48] LABS: Glucose,Whole Blood 192 mg/dL (70-110)
--- NOTE | 2022-08-15 12:38 | P.PN ---
Subjective Patient is seen for follow-up for acute kidney injury. Patient is currently being diuresed for volume overload. Lasix has being changed to oral. Serum creatinine 1.2 Good urine output. Patient is sitting on a bedside chair today she is completely awake and conversing normally. Patient states she wants to go home. Objective - Vital Signs Vital signs: Vital Signs Temp 97.8 F 08/15/22 07:23 Pulse 72 08/15/22 07:23 Resp 16 08/15/22 07:23 BP 113/69 08/15/22 07:23 Pulse Ox 96 08/15/22 08:48 FiO2 Intake & Output 08/14/22 08/15/22 08/15/22 18:59 06:59 18:59 Output Total 650 500 Balance -650 -500 Output: Urine 650 500 Other: Voiding Method Indwelling Catheter Indwelling Catheter Indwelling Catheter - Exam Patient is awake, comfortable, no acute distress Examination of the heart S1 and S2 Examination of the lungs bilateral breath sounds are heard no crackles or wheezing is heard Abdomen is soft nontender Examination lower extremity shows no significant edema GOLF SUPERINTENDENT exam grossly intact - Labs CBC & Chem 7: 08/15/22 06:23 08/15/22 06:23 Labs: Abnormal Lab Results - Last 24 Hours (Table) 08/14/22 08/14/22 08/15/22 Range/Units 17:01 20:14 06:23 RBC 3.22 L (4.10-5.20) X 10*6/uL Hgb 8.2 L (12.0-15.0) d/dL Hct 30.1 L (37.2-46.3) % MCH 25.5 L (27.0-32.0) pg MCHC 27.2 L (32.0-37.0) d/dL RDW 23.0 H (11.5-14.5) % Eosinophils # 0.43 H (0.04-0.35) X 10*3/uL Chloride (96-109) mmol/L Anion Gap (4.00-12.00) mmol/L BUN (9.0-27.0) mg/dL Est GFR (CKD-EPI) (>=60) BUN/Creatinine Ratio (12.00-20.00) Ratio Glucose (70-110) mg/dL POC Glucose (mg/dL) 116 H 186 H (70-110) mg/dL 08/15/22 08/15/22 08/15/22 Range/Units 06:23 07:36 11:47 RBC (4.10-5.20) X 10*6/uL Hgb (12.0-15.0) d/dL Hct (37.2-46.3) % MCH (27.0-32.0) pg MCHC (32.0-37.0) d/dL RDW (11.5-14.5) % Eosinophils # (0.04-0.35) X 10*3/uL Chloride 95 L (96-109) mmol/L Anion Gap 14.60 H (4.00-12.00) mmol/L BUN 31.6 H (9.0-27.0) mg/dL Est GFR (CKD-EPI) 45 L (>=60) BUN/Creatinine Ratio 26.33 H (12.00-20.00) Ratio Glucose 145 H (70-110) mg/dL POC Glucose (mg/dL) 221 H 192 H (70-110) mg/dL Assessment and Plan Assessment: 1. Acute kidney injury secondary to urine retention and hypotension, currently improved. Patient has an indwelling Webb catheter 2. Volume overload currently improved 3. Acute CHF with preserved ejection fraction 3. Anemia with hemoglobin at 8.2. Iron saturation was low at 6.5% and patient is currently receiving IV iron. No active bleeding noted. Plan: Okay for discharge from nephrology standpoint Continue with Webb catheter Follow-up with urology as outpatient.
== END 2022-08-15 12:33 | DRG 291 ==
LOC: EC 17:23 → 3SCARD 18:26 → 5NMEDONC 08-12 21:35
PROVIDERS: ADMIT Internal Medicine; ATTEND Internal Medicine
PROC: 05H933Z Insertion of Infusion Device into Right Brachial Vein, Percutaneous Approach (ICD-10-PCS; principal; 2022-08-09 12:00)
DX: I13.0 Hypertensive heart and chronic kidney disease with heart failure and stage 1 through stage 4 chronic kidney disease, or unspecified chronic kidney disease (principal); G93.41 Metabolic encephalopathy; I50.33 Acute on chronic diastolic (congestive) heart failure; J96.01 Acute respiratory failure with hypoxia; E87.1 Hypo-osmolality and hyponatremia; K57.12 Diverticulitis of small intestine without perforation or abscess without bleeding; F05 Delirium due to known physiological condition; N17.9 Acute kidney failure, unspecified; D62 Acute posthemorrhagic anemia; E66.9 Obesity, unspecified; R33.8 Other retention of urine; N18.9 Chronic kidney disease, unspecified; E11.9 Type 2 diabetes mellitus without complications; I48.0 Paroxysmal atrial fibrillation; J44.9 Chronic obstructive pulmonary disease, unspecified; D63.8 Anemia in other chronic diseases classified elsewhere; D50.9 Iron deficiency anemia, unspecified; I25.10 Atherosclerotic heart disease of native coronary artery without angina pectoris; M19.90 Unspecified osteoarthritis, unspecified site; G47.33 Obstructive sleep apnea (adult) (pediatric); E78.5 Hyperlipidemia, unspecified; G47.30 Sleep apnea, unspecified; R32 Unspecified urinary incontinence; Z86.73 Personal history of transient ischemic attack (TIA), and cerebral infarction without residual deficits; Z86.718 Personal history of other venous thrombosis and embolism; Z95.2 Presence of prosthetic heart valve; E11.22 Type 2 diabetes mellitus with diabetic chronic kidney disease; I27.20 Pulmonary hypertension, unspecified; N28.1 Cyst of kidney, acquired; Z53.20 Procedure and treatment not carried out because of patient's decision for unspecified reasons; I07.1 Rheumatic tricuspid insufficiency; I95.9 Hypotension, unspecified; Z79.82 Long term (current) use of aspirin; Z79.02 Long term (current) use of antithrombotics/antiplatelets; Z79.84 Long term (current) use of oral hypoglycemic drugs; Z79.899 Other long term (current) drug therapy; Z95.3 Presence of xenogenic heart valve; Z82.49 Family history of ischemic heart disease and other diseases of the circulatory system; Z96.642 Presence of left artificial hip joint; Z90.49 Acquired absence of other specified parts of digestive tract; Z87.19 Personal history of other diseases of the digestive system; Z96.653 Presence of artificial knee joint, bilateral; Z88.8 Allergy status to other drugs, medicaments and biological substances; Z95.818 Presence of other cardiac implants and grafts; Z87.01 Personal history of pneumonia (recurrent); Z68.30 Body mass index [BMI] 30.0-30.9, adult; Z87.891 Personal history of nicotine dependence
CPT/HCPCS: 36410; 36430; 71045; 71046; 76770; 76937; 80048; 80053; 81001; 82525; 82607; 82668; 82728; 82746; 83036; 83540; 83550; 83605; 83735; 83880; 83921; 84145; 85025; 85027; 85045; 93306; 94640; 94760; 99285